=== PATIENT | female | born 1950 | race Caucasian/White ===

== ENCOUNTER → 2019-12-07 13:51 | Outpatient (BNVA) | payer MEDICARE, OTHER, SELFPAY | PROVIDERS: Family Provider Family Medicine; PCP Family Medicine; Visit Provider Internal Medicine Rheumatology | DX: M05.79 Rheumatoid arthritis with rheumatoid factor of multiple sites without organ or systems involvement (principal); Z79.899 Other long term (current) drug therapy; M15.9 Polyosteoarthritis, unspecified; Z51.81 Encounter for therapeutic drug level monitoring | CPT/HCPCS: 36415; 80053; 85025; 99213 ==

== ENCOUNTER → 2019-12-07 14:31 | Outpatient (BNVA) | payer MEDICARE, OTHER, SELFPAY | PROVIDERS: Family Provider Family Medicine; PCP Family Medicine; Visit Provider Internal Medicine Rheumatology | DX: M05.79 Rheumatoid arthritis with rheumatoid factor of multiple sites without organ or systems involvement (principal); Z51.81 Encounter for therapeutic drug level monitoring | CPT/HCPCS: 85025 ==

== ENCOUNTER 2020-02-08 11:56 | Outpatient (CLI) | payer MEDICARE, OTHER, SELFPAY ==
--- NOTE | 2020-02-08 | XR_ITS ---
WS: [id number] LUMBAR SPINE: 3 VIEWS TECHNIQUE: AP, lateral and L5-S1 spot. HISTORY: LUMBAR RADICULOPATHY COMPARISON: None available. Moderate LEFT convex curvature lumbar spine with asymmetric disc narrowing. Severe disc space narrowi ng at L2-3. Moderate disc space narrowing throughout the remaining lumbar spine. No fractures. Mild narrowing of the SI joints. XR/XR lumbar spine 2-3V* [id number] IMPRESSION: Moderate LEFT convex curvature lumbar spine with moderate to severe degenerativ e spondylosis throughout the lumbar spine.
== END 2020-02-08 11:57 | disposition home or self-care (01) ==
PROVIDERS: Family Provider Family Medicine; PCP Family Medicine; Visit Provider Family Medicine
DX: M54.16 Radiculopathy, lumbar region (principal); M47.816 Spondylosis without myelopathy or radiculopathy, lumbar region
CPT/HCPCS: 72100

== ENCOUNTER 2020-02-25 10:30 | Outpatient (CLI) | payer MEDICARE, OTHER, SELFPAY ==
--- NOTE | 2020-02-25 10:46 | MR_ITS ---
WS: [id number] MRI LUMBAR SPINE NONCONTRAST TECHNIQUE: Sagittal T1, T2 and STIR imaging. Axial T1 and T2 imaging. CLINICAL INFORMATION: LUMBAR RADICULOPATHY RIGHT COMPARISON: None. FINDINGS: Mild lumbar curve. No acute compression. Mild spondylitic changes with disc space narrowing L2-L5. En dplate degenerative changes lumbar spine. Moderate spondylitic changes cervical spine on the pinion and wheel truer im aging. Disc osteophyte complexes with mild/moderate central canal stenosis at C4-C5 and C5-C6. Promin ent disc protrusions in the mid thoracic spine at T6-T7 and T7-8. L1-L2: Mild disc bulge with slight effacement of ventral thecal sac. Mild left greater than right for aminal narrowing. Slight narrowing of the subarticular recess. Mild facet arthropathy. L2-L3: Mild disc bulging with osteophytic ridging. Impingement on the right subarticular recess and t raversing right L3 nerve root. Mild central canal stenosis. Moderate facet arthropathy. Mild to moder ate bilateral foraminal narrowing. L3-L4: Mild disc bulging with osteophytic ridging. Moderate central canal stenosis. Impingement right subarticular recess. Moderate facet arthropathy with small facet effusions. Right foraminal protrusi on with moderate to severe right foraminal narrowing. Impingement on the exiting right L3 nerve root. L4-L5: Moderate to severe central canal stenosis due to disc osteophyte complex with facet arthropath y and ligament flavum hypertrophy. Impingement on the left greater than right subarticular recess. Mi ld left and moderate right foraminal narrowing. Impingement on the exiting right L4 nerve root. L5-S1: Disc osteophyte complex with endplate ridging. Encroachment traversing S1 nerve roots. This is worse in the left. Moderate to severe left foraminal narrowing impinges the exiting left L5 nerve ro ot. Right foramen is patent. Moderate facet arthropathy. Partially visualized fibroids in the uterus the largest in the anterior fundus measuring 1.5 CM. This can be further evaluated with pelvic ultrasound. MR/MR lumbar spine wo con* [id number] IMPRESSION: 1. Mild lumbar curve. No acute compression. 2. Moderate central canal stenosis L3-4 and moderate to severe central canal s tenosis L4-5 due to disc osteophyte complexes with facet arthropathy and ligame nt flavum hypertrophy. 3. Moderate right L3-4 and right L4-5 foraminal narrowing with impingement on the exiting right L3 and L4 nerve roots respectively. 4. Moderate to severe left L5-S1 foraminal narrowing impinges the exiting left L5 nerve root. Slight encroachment on the left S1 nerve root this level. 5. Moderate facet arthropathy with facet edema L3-L4 and L4-L5 likely degenera tive. 6. Mild to moderate central canal stenosis in the cervical spine at C5-C6 and C6-C7. Prominent disc protrusions in the mid thoracic spine described above. Th is can be further evaluated with cervical and thoracic spine MRI.
== END 2020-02-25 10:31 | disposition home or self-care (01) ==
LOC: RADWPI 10:32
PROVIDERS: Family Provider Family Medicine; PCP Family Medicine; Visit Provider Family Medicine
DX: M54.16 Radiculopathy, lumbar region (principal); M48.061 Spinal stenosis, lumbar region without neurogenic claudication; M25.78 Osteophyte, vertebrae; M47.816 Spondylosis without myelopathy or radiculopathy, lumbar region; M51.24 Other intervertebral disc displacement, thoracic region
CPT/HCPCS: 72148

== ENCOUNTER 2020-02-29 04:00 | Emergency (ER) | payer MEDICARE, OTHER, SELFPAY ==
[2020-02-29 04:11] VITALS: BP 189/93; PULSE 86; RESP 20; TEMP 36.3; O2SAT 94; BMI 37.3
--- NOTE | 2020-02-29 04:26 | W.ED.BACK ---
HPI - Back Pain/Injury General: Chief Complaint: Back Pain/Injury Stated Complaint: R HIP/LEG PAIN Time Seen by Provider: 02/29/20 04:15 History of Present Illness: HPI Narrative: Jacqueline is a very nice 69-year-old female who comes in complaining of pain in her right buttock that radiates down her right leg. At times she will have her foot tingle. She denies any fevers, chills, loss of bowel or bladder control, saddle anesthesia or leg weakness. Patient has had x-rays and MRI which showed some disc herniations but nothing that was severe. Has been taking indomethacin along with hydrocodone's for pain but she states that is not taking care of her pain. She denies any injuries, abdominal pain, fever or leg weakness. Associated symptoms: Deny abdominal pain, chills, difficulty walking, dysuria, fatigue, fever(s), hematuria, nausea, syncope, urinary urgency or vomiting Review of Systems Const: Denies: fever(s), chills, body aches, fatigue, malaise, night sweats or diaphoresis Eyes: Denies: change in vision, blurry vision or blind spots ENMT: Denies: throat pain, odynophagia, hoarseness, ear or mastoid pain, ear discharge, change in hearing or nasal discharge Card: Denies: chest pain, palpitations, irregular heart rhythm, lightheadedness, syncope, pre-syncope, dyspnea on exertion or orthopnea Resp: Denies: dyspnea, productive cough, non-productive cough, wheezing, hemoptysis or chest congestion GI: Denies: abdominal pain, nausea, vomiting, hematemesis, coffee ground emesis, heartburn, diarrhea, constipation, GI cramping, hematochezia or melena : Denies: flank pain, dysuria, urinary frequency, urinary urgency, oliguria, urinary incontinence or hematuria Musc: Reports: back pain; Denies: neck pain, extremity pain, extremity swelling, joint pain, joint swelling, joint redness, joint warmth or joint stiffness Skin/Breast: Denies: rash, pruritus, erythema, skin tenderness or jaundice Neuro: Denies: headache(s), numbness in extremities, weakness in extremities, sensory changes, lack of coordination, difficulty walking, dizziness, vertigo, confusion or Slurred speech present Endo: Denies: polyuria, polydipsia, tired all the time, cold intolerance, excessive sweating, flushing, hot flashes or heat intolerance Ashish/Lymph: Denies: easy bruising, easy bleeding, petechiae, purpura or enlarged lymph nodes All/Imm: Denies: urticaria, throat swelling, tongue swelling, facial swelling or acute wheezing PFSH ED PFSH: Medical History Immunosuppression 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 Osteopenia Seropositive rheumatoid arthritis of multiple joints Surgical History History of bilateral knee arthroplasty Social History Smoking and tobacco status: never smoked Alcohol intake: never Physical Exam Const: COMMON NORMALS: no acute distress, patient oriented x3, no limitations, healthy appearing and well nourished EXAM LIMITATIONS: no altered mental status GENERAL APPEARANCE: cooperative, well kempt and well developed HENMT: COMMON NORMALS: normocephalic, atraumatic, hearing grossly normal bilaterally, external ears normal, EAC's normal, Normal external nose present and moist oral mucous membranes HEAD & SCALP: normal to inspection, normocephalic and atraumatic FACE & SINUS: normal facial exam and face symmetric NOSE: Normal external nose present and Normal nares present EXTERNAL EAR: Yes external ears normal EXTERNAL AUDITORY CANAL: EAC's normal MOUTH: Normal oral and palatal mucosa present, lip normal and tongue normal Eye: COMMON NORMALS: Equal, round and reactive pupils present, EOMs intact bilaterally, conjunctivae normal and no scleral icterus GENERAL EYE: appearance normal, both eyes and all related structures ALIGNMENT: Yes alignment normal PERIORBITAL: periorbital findings normal EYELID: eyelids normal CONJUNCTIVA: Yes conjunctivae normal SCLERA: sclerae normal PUPIL: Yes Equal, round and reactive pupils present Neck/C-Spine: COMMON NORMALS: full ROM, no lymphadenopathy, supple, no meningeal signs and no JVD GENERAL: Yes normal visual inspection and Yes trachea midline CERVICAL SPINE: Yes cervical ROM normal Chest: COMMONS NORMALS: normal inspection of the chest and normal palpation of entire chest wall Resp: COMMON NORMALS: normal respiratory effort, No retractions, No use of accessory muscles and clear to auscultation bilaterally EFFORT & INSPECTION: Yes able to speak in complete sentences AUSCULTATION: clear to auscultation bilaterally, no crackles, no rales, no rhonchi and no wheezes Cardio: COMMON NORMALS: no JVD, regular rate, regular rhythm, S1 normal heart sound present, S2 normal heart sound present, No gallops present (Cardio), No clicks present (Cardio), No murmurs present (Cardio) and No rub (Cardio) RATE: regular rate RHYTHM: regular rhythm HEART SOUNDS: S1 normal heart sound present, S2 normal heart sound present, no click, no gallops, no murmurs and no rubs GI: COMMON NORMALS: Soft to palpation, non-tender, No hepatosplenomegaly present and no masses PALPATION: Yes Soft to palpation, No Tenderness to palpation present (GI), No Guarding due to palpation present (GI), No Rigid due to palpation, Yes No hepatosplenomegaly present, No Hernia present, No Palpable mass present and No Pulsatile mass present : COMMON NORMALS: Yes no CVA tenderness BLADDER/KIDNEY EXAM: Yes no CVA tenderness and No CVA tenderness EXTERNAL FEMALE EXAM: No Hernia present Back/Pelvis: COMMON NORMALS: no CVA tenderness GENERAL BACK: No CVA tenderness, No mass, No erythema and No ecchymosis THORACIC SPINE/UPPER BACK: No paraspinal muscle tenderness and No paraspinal muscle spasm LUMBAR SPINE/LOWER BACK: Yes ROM limited (Secondary to pain), No paraspinal muscle tenderness, No paraspinal muscle spasm, Yes straight leg raise positive right and No straight leg raise positive left Extremity: COMMON NORMALS: normal to inspection, full ROM, capillary refill normal, no joint enlargement, no clubbing, cyanosis or edema and no calf tenderness Neuro: COMMON NORMALS: patient oriented x3, CN's II-XII intact bilaterally, moves all extremities, no focal motor deficits and no sensory deficits noted MENINGEAL SIGNS: Yes no meningeal signs SPEECH: speech normal GAIT: Yes Normal gait present MOTOR EXAM: 5/5 motor strength present throughout DEEP TENDON REFLEXES: Right patellar reflex intensity grade: 2+, Left patellar reflex intensity grade: 2+, Right ankle reflex intensity grade: 2+ and Left ankle reflex intensity grade: 2+ Psych: COMMON NORMALS: mental status grossly normal, Normal thought process present, cooperative, normal affect, speech normal and activity/motor behavior normal APPEARANCE: Yes well kempt SPEECH: Yes normal speech THOUGHT PROCESS: Normal thought process present Skin: COMMON NORMALS: no rashes or lesions noted, turgor normal, no jaundice, no petechiae and no mottling GENERAL SKIN EXAM: no rashes or lesions noted and turgor normal Course Vital Signs: Vital signs: Vital Signs Temperature 97.3 F L 02/29/20 04:11 Pulse Rate 86 02/29/20 04:11 Respiratory Rate 20 H 02/29/20 04:11 Blood Pressure 189/93 02/29/20 04:11 Pulse Oximetry 94 02/29/20 04:11 MDM - Back Pain/Injury MDM Narrative: Medical decision making narrative: The patient appears to have a severe case of sciatica. I reviewed her lumbar spine x-rays and MRI from the past 2 weeks and she does have right-sided L5-S1 and L4-5 severe canal stenosis and nerve root impingement. The patient shows no sign of any other severe problem such as CRAFTI. I will increase her pain medication to Percocet and add Flexeril. I believe she would benefit from steroids but she is on 2 other immunosuppressive medications. With no trauma and no new injury and previous imaging I think her symptoms can be managed with pain medication. She agrees to follow-up with Dr. Hernandez this week for recheck. Discharge Plan Discharge Patient Disposition: Home, Self-Care Clinical Impression: Sciatica Qualifiers: Laterality: right Qualified Code(s): M54.31 - Sciatica, right side Condition: Stable Prescriptions: New Percocet 5-325 mg tablet 1 tab PO Q6H PRN (Reason: pain) Qty: 20 RF: 0 cyclobenzaprine 10 mg tablet 10 mg PO TID PRN (Reason: muscle spasm) Qty: 30 RF: 0 No Action tizanidine [Zanaflex] 4 mg capsule 4 mg PO Q6H PRNRF: 0 folic acid 1 mg tablet 1 mg PO DAILY RF: 0 carvedilol 6.25 mg tablet 6.25 mg PO BID RF: 0 calcium carbonate-vit D3-min 600 mg calcium- 400 unit tablet 1 tab PO DAILY RF: 0 ezetimibe-simvastatin [Vytorin 10-10] 10-10 mg tablet 1 tab PO DAILY RF: 0 lisinopril 20 mg tablet 20 mg PO BID RF: 0 multivitamin Tablet 1 tab PO DAILY RF: 0 hydrochlorothiazide 25 mg tablet 25 mg PO DAILY PRN (Reason: severe pain (scale score 7-10)) RF: 0 methotrexate sodium 2.5 mg tablet 17.5 mg PO .once weekly Qty: 28 RF: 2 leflunomide 20 mg tablet 20 mg PO DAILY Qty: 90 RF: 0 Discharge Orders: Discharge Order (Routine); Ordered 02/29/20 Ordered By: Cady Villalobos Referrals: Joshua Hernandez MD [Primary Care Provider] - 1-3 days Discharge Diet: Advance as tolerated Discharge Activity: Increase activity as tolerated Patient Instructions: Sciatica (ED) Activity Restrictions/Additional Instructions: Please return to the ER immediately for any of the signs or symptoms listed on your discharge instruction sheets, worsening/changing of your symptoms, you are not getting better as quickly as expected, or for ANY other cause or concerns. Return to ER for fever, numbness in your groin, loss of bowel or bladder control, leg weakness, or for any other cause for concern. Do not take your hydrocodone's while taking Percocet. Take your muscle relaxer only as needed. Continue your indomethacin. Be certain to follow-up with Dr. Hernandez as soon as possible. Coding Level of Care Code ED Embosser Operator for Keara Dudley
[2020-02-29 04:53] VITALS: RESP 16; O2SAT 99
[2020-02-29] MEDS: oxyCODONE-APAP 5-325 mg Tablet 1 TAB PO (04:53)
[2020-02-29] MEDS: cyclobenzaprine 10 mg Tablet PO (04:54)
[2020-02-29 04:55] VITALS: BP 168/99; PULSE 84; RESP 16; O2SAT 96
[2020-02-29 05:14] VITALS: PULSE 68; RESP 16; O2SAT 96
== END 2020-02-29 05:15 | disposition home or self-care (01) ==
PROVIDERS: Emergency Provider Emergency Medicine; Family Provider Family Medicine; PCP Family Medicine
DX: M54.31 Sciatica, right side (principal)
CPT/HCPCS: 12345; 99281; 99283

== ENCOUNTER → 2020-03-09 09:54 | Outpatient (BNVA) | payer MEDICARE, OTHER, SELFPAY | PROVIDERS: Family Provider Family Medicine; PCP Family Medicine; Referring Provider Family Medicine; Visit Provider Anesthesiology Pain Medicine | DX: M54.42 Lumbago with sciatica, left side (principal); M54.9 Dorsalgia, unspecified; Z79.891 Long term (current) use of opiate analgesic | CPT/HCPCS: 99203; 99204 ==

== ENCOUNTER → 2020-03-22 13:10 | Outpatient (BNVA) | payer MEDICARE, OTHER, SELFPAY | PROVIDERS: Family Provider Family Medicine; PCP Family Medicine; Visit Provider Internal Medicine Rheumatology | DX: M05.79 Rheumatoid arthritis with rheumatoid factor of multiple sites without organ or systems involvement (principal); Z79.899 Other long term (current) drug therapy; M20.5X1 Other deformities of toe(s) (acquired), right foot; M85.89 Other specified disorders of bone density and structure, multiple sites; M16.0 Bilateral primary osteoarthritis of hip; M47.816 Spondylosis without myelopathy or radiculopathy, lumbar region | CPT/HCPCS: 36415; 80076; 82565; 85025; 85651; 86140; 99214 ==

== ENCOUNTER 2020-03-23 10:38 | Outpatient (CLI) | payer MEDICARE, OTHER, SELFPAY ==
--- NOTE | 2020-03-23 11:00 | MR_ITS ---
WS: [id number] MRI CERVICAL SPINE NONCONTRAST TECHNIQUE: Sagittal T1, T2 and STIR imaging. Axial T2, gradient, and fiesta imaging. CLINICAL INFORMATION: M50.020 Cervical disc disorder with myelopathy, mid-cervi... COMPARISON: None. FINDINGS: Straightening of the normal cervical lordosis. Grade 1 anterolisthesis C4 on C5. Disc space narrowing worse at C4-C5 C5-C6 and C6-C7. Moderate central canal stenosis C5-C6. C2-C3: Mild right and no significant left foraminal narrowing. C3-C4: Mild osteophytic ridging. Mild left greater than right bony foraminal narrowing. Mild facet ar thropathy. C4-C5: Grade 1 anterolisthesis. Disc osteophyte complex with a small central protrusion. Slight conta ct of the cervical cord. Mild central canal stenosis. Moderate left greater than right bony foraminal narrowing. C5-C6: Disc osteophyte complex with endplate ridging. Slight indentation on the cervical cord and mod erate central canal stenosis. Moderate bilateral bony foraminal narrowing. Mild facet arthropathy. C6-C7: Disc osteophyte complex eccentric to the left. Mild central canal stenosis. Moderate to severe left and mild right bony foraminal narrowing. C7-T1: Mild to moderate left and no significant right foraminal narrowing. Spinal canal is patent. Small disc protrusions upper thoracic spine without significant spinal canal stenosis. Mild bilateral T1-2 foraminal narrowing MR/MR cervical spin wo con* [id number] IMPRESSION: 1. Straightening of the normal cervical lordosis with moderate spondylitic petrona nges worse at C4-C6. Grade 1 anterolisthesis C4 on C5. 2. Mild central canal stenosis C4-C5 and moderate central canal stenosis C5-C6 with slight indentation and flattening of the cervical cord. Cord signal remai ns normal. 3. Multilevel moderate bony foraminal narrowing worse at left C4-C5, bilateral C5-C6, and left C6-C7. Moderate to severe at left C6-7. 4. Small disc protrusions in the upper thoracic spine with mild bilateral fora shayne narrowing T1-2.
--- NOTE | 2020-03-23 13:00 | XRR_ITS ---
PROCEDURE INFORMATION: Exam: XR Cervical Spine, 2 or 3 Views Exam date and time: 03/23/2020 11:45 AM Age: 69 years old Clinical indication: Neck pain TECHNIQUE: Imaging protocol: XR of the cervical spine, 2 or 3 views. COMPARISON: No relevant prior studies available. FINDINGS: Vertebrae: 4.5 mm anterior listhesis of C4 on C5 in flexion and neutral positioning, which decreases to 4.0 cm with extension. Degenerative change, of greatest severity at the C5-C6 level. Soft tissues: Unremarkable. XR/XR cervical spine fl/ex [id number] IMPRESSION: 1. 4.5 mm anterior listhesis of C4 on C5 in flexion and neutral positioning, which decreases to 4.0 cm with extension. 2. Degenerative change, of greatest severity at the C5-C6 level.
--- NOTE | 2020-03-23 13:30 | XRR_ITS ---
PROCEDURE INFORMATION: Exam: XR Lumbosacral Spine, 2 or 3 Views Exam date and time: 03/23/2020 11:45 AM Age: 69 years old Clinical indication: Low back pain TECHNIQUE: Imaging protocol: XR of the lumbosacral spine, 2 or 3 views. COMPARISON: No relevant prior studies available. FINDINGS: Vertebrae: Grade 1 anterior listhesis of L4 on L5, without significant instability. Osteopenia and degenerative change. Soft tissues: Unremarkable as visualized. XR/XR lumbar spine f/e only [id number] IMPRESSION: Grade 1 anterior listhesis of L4 on L5, without significant instability.
== END 2020-03-23 10:39 | disposition home or self-care (01) ==
LOC: RADWPI 10:42
PROVIDERS: Family Provider Family Medicine; PCP Family Medicine; Visit Provider Licensed Practical Nurse
DX: M54.2 Cervicalgia (principal); M48.02 Spinal stenosis, cervical region; M51.24 Other intervertebral disc displacement, thoracic region
CPT/HCPCS: 72040; 72120; 72141

== ENCOUNTER → 2020-04-06 13:12 | Outpatient (BNVA) | payer MEDICARE, OTHER, SELFPAY | PROVIDERS: Family Provider Family Medicine; PCP Family Medicine; Visit Provider Anesthesiology Pain Medicine | DX: M48.062 Spinal stenosis, lumbar region with neurogenic claudication (principal); M50.020 Cervical disc disorder with myelopathy, mid-cervical region, unspecified level | CPT/HCPCS: 99213 ==

== ENCOUNTER → 2020-07-25 13:30 | Outpatient (BNVA) | payer MEDICARE, OTHER, SELFPAY | PROVIDERS: Family Provider Family Medicine; PCP Family Medicine; Visit Provider Internal Medicine Rheumatology | DX: M05.79 Rheumatoid arthritis with rheumatoid factor of multiple sites without organ or systems involvement (principal); M16.2 Bilateral osteoarthritis resulting from hip dysplasia; M85.80 Other specified disorders of bone density and structure, unspecified site; Z79.899 Other long term (current) drug therapy; M47.896 Other spondylosis, lumbar region | CPT/HCPCS: 36415; 80076; 82565; 85025; 85651; 86140; 99214 ==

== ENCOUNTER → 2020-11-09 12:54 | Outpatient (BNVA) | payer MEDICARE, OTHER, SELFPAY | PROVIDERS: Family Provider Family Medicine; PCP Family Medicine; Visit Provider Internal Medicine Rheumatology | DX: Z79.899 Other long term (current) drug therapy (principal); M19.90 Unspecified osteoarthritis, unspecified site | CPT/HCPCS: 36415; 80076; 82565; 85025; 85651; 86140 ==

== ENCOUNTER → 2020-11-16 13:52 | Outpatient (BNVA) | payer MEDICARE, OTHER, SELFPAY | PROVIDERS: Family Provider Family Medicine; PCP Family Medicine; Visit Provider Internal Medicine Rheumatology | DX: M05.79 Rheumatoid arthritis with rheumatoid factor of multiple sites without organ or systems involvement (principal); Z79.899 Other long term (current) drug therapy; J01.90 Acute sinusitis, unspecified; M16.0 Bilateral primary osteoarthritis of hip; M47.896 Other spondylosis, lumbar region; M85.80 Other specified disorders of bone density and structure, unspecified site | CPT/HCPCS: 36415; 85025; 99214 ==

== ENCOUNTER 2021-01-09 09:08 | Outpatient (CLI) | payer MEDICARE, OTHER, SELFPAY ==
--- NOTE | 2021-01-09 09:10 | FL_ITS ---
WS: [id number] UPPER GI WITH AIR TECHNICAL: Double contrast upper GI with thin and thick barium FLUOROSCOPY TIME: 2.7 minutes CLINICAL INFORMATION: R13.10 - Dysphagia, unspecified COMPARISON: None. FINDINGS: Swallowing: No evidence of aspiration or penetration. Esophagus: Moderate to advanced esophageal dysmotility with delayed emptying. Delayed emptying on the upright and supine imaging with tertiary contractions. Small esophageal hiatal hernia. Reflux is vis ualized into the mid and upper esophagus. Gastroesophageal reflux: Present Stomach: Small esophageal hiatal hernia. Double contrast stomach is otherwise normal with normal empt donna. Duodenum: Normal duodenal C-loop. Other findings: None. FL/FL upper GI w air* [id number] IMPRESSION: 1. Advanced esophageal dysmotility with delayed emptying. No evidence of high- grade stricture or mass. Tertiary contractions visualized in the distal esophag us. 2. Small esophageal hiatal hernia with reflux visualized into the mid and uppe r esophagus in the upright and supine imaging. 3. Double contrast stomach and duodenum are otherwise normal.
== END 2021-01-09 09:09 | disposition home or self-care (01) ==
LOC: RADWPI 09:09
PROVIDERS: PCP Family Medicine; Visit Provider Surgery
DX: R13.10 Dysphagia, unspecified (principal); K44.9 Diaphragmatic hernia without obstruction or gangrene
CPT/HCPCS: 74246

== ENCOUNTER → 2021-01-25 13:17 | Outpatient (BNVA) | payer MEDICARE, OTHER, SELFPAY | PROVIDERS: PCP Family Medicine; Visit Provider Surgery | DX: R13.10 Dysphagia, unspecified (principal); Z12.11 Encounter for screening for malignant neoplasm of colon; Z11.52 Encounter for screening for COVID-19 | CPT/HCPCS: 87635 ==

== ENCOUNTER → 2021-02-02 10:22 | Outpatient (BNVA) | payer MEDICARE, OTHER, SELFPAY | PROVIDERS: PCP Family Medicine; Visit Provider Surgery | DX: Z01.812 Encounter for preprocedural laboratory examination (principal); Z20.822 Contact with and (suspected) exposure to COVID-19 | CPT/HCPCS: 87635 ==

== ENCOUNTER 2021-02-06 05:52 | Day surgery (SDC) | payer MEDICARE, OTHER, SELFPAY ==
[2021-02-02 06:55] VITALS: BMI 34.0
[2021-02-02 15:16] VITALS: BMI 35.1
[2021-02-06 06:23] VITALS: BP 166/102; PULSE 95; RESP 18; TEMP 36.1; O2SAT 91
[2021-02-06 06:27] VITALS: BP 134/89
--- NOTE | 2021-02-06 06:27 | P.HP_ITS ---
Same Day Surgery H&P Indication for Procedure/HPI DATE OF PROCEDURE: February 06, 2021 CHIEF COMPLAINT/INDICATIONFOR SURGICAL PROCEDURE: Difficulty in swallowing and screening colonoscopy PREOP DIAGNOSIS: Dysphagia and screening colonoscopy PLANNED PROCEDRUE: Operation Date: 02/06/21 07:00 Proposed Procedures p EGD/colon [id number] R13.10 Z12.11(Not Applicable) - Facundo Klein MD s Colonoscopy(Not Applicable) - Facundo Klein MD This is a pleasant 70 years old female patient has been having issues with swallowing for the past 6 to 8 months has been on and off particularly to stick. Patient reports vomiting and excessive mucus she feels not in my neck also she does experience pain when food is stuck in her upper throat denies any history of hematemesis or bleeding per rectum and no history of colon cancer. Patient never had an EGD or colonoscopy. 02/06/2021 Patient comes today for diagnostic EGD and screening colonoscopy. Upper GI study was done and showed; 1. Advanced esophageal dysmotility with delayed emptying. No evidence of high- grade stricture or mass. Tertiary contractions visualized in the distal esophagus. 2. Small esophageal hiatal hernia with reflux visualized into the mid and upper esophagus in the upright and supine imaging. 3. Double contrast stomach and duodenum are otherwise normal. ROS All systems have been reviewed negative except as per the above Medications/Allergies* Home Medications Medication Instructions Recorded Confirmed Type calcium carb-vit D3-minerals 600 1 tab PO DAILY tab 12/07/19 02/02/21 History mg calcium-400 unit tablet carvedilol 6.25 mg tablet 6.25 mg PO BID 12/07/19 02/06/21 History hydrochlorothiazide 25 mg tablet 25 mg PO DAILY tab 12/07/19 02/02/21 History pravastatin 40 mg tablet 40 mg PO DAILY 03/09/20 02/02/21 History Multivitamin 50 Plus 1 tab PO DAILY 02/02/21 02/06/21 History acetaminophen [8 Hour Pain 650 mg PO Q8H PRN 02/02/21 02/02/21 History Reliever] ascorbic acid (vitamin C) [Vitamin 1,000 mg PO DAILY 02/02/21 02/02/21 History C] indomethacin 25 mg PO DAILY 02/02/21 02/02/21 History leflunomide 20 mg PO DAILY 02/02/21 02/02/21 History lisinopril 40 mg PO DAILY 02/02/21 02/02/21 History Allergies/Adverse Reactions Allergy/AdvReac Type Severity Reaction Status Date / Time Penicillins Allergy Unknown rash Verified 02/06/21 06:28 Sulfa (Sulfonamide Allergy Unknown Unknown Verified 02/06/21 06:28 Antibiotics) bacitracin Allergy rash,swelli Verified 02/06/21 06:28 [From Neosporin ng,itching ([id number])] neomycin Allergy rash,swelli Verified 02/06/21 06:28 [From Neosporin ng,itching ([id number])] polymyxin B Allergy rash,swelli Verified 02/06/21 06:28 [From Neosporin ng,itching ([id number])] Pertinent History/Comorbid Conditions* Medical History (Updated 12/25/20 @ 16:19 by Facundo Klein MD) Cervical disc disorder with 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 Displacement of lumbar disc with radiculopathy High risk medication use Immunization counseling Immunosuppression Intervertebral disc disorder with radiculopathy of lumbosacral region Lumbar stenosis with neurogenic claudication 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 Osteopenia Osteopenia Seropositive rheumatoid arthritis of multiple joints Sinusitis, acute Spondylolisthesis of cervical region Spondylolisthesis, lumbar region Stenosis of cervical spine with myelopathy Surgical History (Updated 12/07/19 @ 06:59 by Angela Mitchell MD) History of bilateral knee arthroplasty Family History (Updated 03/09/20 @ 09:10 by Conner Vora) Cancer Mother Denies family history of Diabetes Dementia Social History Smoking and tobacco status: never smoked Alcohol intake: never Household members: spouse Marital status: Current occupational status: retired History of recent travel: No Pertinent Exam Findings alert, oriented x 3, clear to auscultation bilaterally, regular rate & rhythm and procedure specific exam findings (Abdominal examination nontender nondistended soft) Recommendations Surgery/Procedure today (EGD and colonoscopy with possible biopsy) Other Plans: Plan of care; After thorough history and physical examination and reviewing the chart, plan to perform a diagnostic esophagogastroduodenoscopy and screening colonoscopy with possible biopsy and possible polypectomy. I discussed with the patient in detail the risks,benefits,alternatives and indications.The risk of aspiration, bleeding, soft tissue injury, perforation of the stomach/esophagus/colon and other potential concomitant complications were explained to the patient in details also the potential need for Thoracotomy and or Laproscoy/Laparotomy to repair any related complications including but not limited to colectomy and or Closotomy. The patient understood this well and did agree to proceed. Rationale was carefully and clearly discussed with the patient.Appropriate informed consent have been reviewed and signed Verbal and written Instructions were given to the patient for colonoscopy prep Coding Level of Care Code Acute Marketing Support Specialist for Keara Dudley
[2021-02-06] MEDS: sodium chloride 0.9% 1,000 ML 30 ML IV (06:30)
--- NOTE | 2021-02-06 07:01 | ANES.PREANE2 ---
Pre-Anesthetic Assessment Pre-Anesthetic Assessment: Height/Weight: Height 1.55 m Weight 84.368 kg Temp Pulse Resp BP Pulse Ox 97 F L 95 18 134/89 91 02/06/21 06:23 02/06/21 06:23 02/06/21 06:23 02/06/21 06:27 02/06/21 06:23 Preop Diagnosis: Dysphagia and screening colonoscopy Proposed Procedure: Operation Date: 02/06/21 07:00 Proposed Procedures p EGD/colon 09015 11399 R13.10 Z12.11(Not Applicable) - Facundo Klein MD s Colonoscopy(Not Applicable) - Facundo Klein MD Familial anesthetic complications: none Was Beta Vianca taken within 24 hours: Yes Was Clonidine taken within 24 hours: N/A Last intake: Intake Last Liquid Date 02/05/21 Last Liquid Time 00:00 Last Solid Date 02/04/21 Last Intake: 00:00 Social: Social History: No alcohol and No tobacco Exam: Pre-Anes Outpt Exam: alert, oriented x 3, clear to auscultation bilaterally and regular rate & rhythm Airway: Cervical ROM: WNL MP: 1 Dentition: False Pulmonary: Pulmonary: None reported CV/HEM: CV/HEM: HTN : : None reported Hepatic: Hepatic: None reported GI: GI: GERD Metabolic: Metabolic: None reported Musc/skel: Musc/skel: Lower Back Pain and OA/DJD Neuropsych: Neuropsych: CVA (FLORES that resolved) Anesthetic Plan: ASA status: 2 Anesthesia: MAC PFSH Anesthesia PFSH: Medical History Cervical disc disorder with 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 Displacement of lumbar disc with radiculopathy High risk medication use Immunization counseling Immunosuppression Intervertebral disc disorder with radiculopathy of lumbosacral region Lumbar stenosis with neurogenic claudication 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
[2021-02-06 07:39] VITALS: BP 164/82; PULSE 73; RESP 18; TEMP 36.1; O2SAT 97
--- NOTE | 2021-02-06 07:40 | ANE.PACU2 ---
Inpatient post-anesthesia follow up: Airway intact: Yes Vital signs: Temperature 97 F Pulse Rate 73 Respiratory Rate 18 Blood Pressure 164/82 Pulse Oximetry 97 Oxygen Delivery Me thod Room Air Oxygen Flow Rate Fraction of Inspir ed Oxygen Hydration adequate: Yes Nausea and vomiting: No Pain level: 1 Mental status: Baseline
[2021-02-06 08:04] VITALS: BP 120/58; PULSE 71; RESP 18; O2SAT 95
--- NOTE | 2021-02-06 14:14 | ANE.PACU2 ---
Inpatient post-anesthesia follow up: Airway intact: Yes Vital signs: Temperature 97 F Pulse Rate 71 Respiratory Rate 18 Blood Pressure 120/58 Pulse Oximetry 95 Oxygen Delivery Me thod Room Air Oxygen Flow Rate Fraction of Inspir ed Oxygen Hydration adequate: Yes Nausea and vomiting: No Pain level: 1 Mental status: Baseline
[2021-02-08 06:52] LABS: H. Pylori / CLO Test Negative
== END 2021-02-06 08:20 | disposition home or self-care (01) ==
PROVIDERS: PCP Family Medicine; Visit Provider Surgery
PROC: 0DJ08ZZ Inspection of Upper Intestinal Tract, Via Natural or Artificial Opening Endoscopic (ICD-10-PCS; CPT 43235; principal; 2021-02-06 07:00)
PROC: 0DJD8ZZ Inspection of Lower Intestinal Tract, Via Natural or Artificial Opening Endoscopic (ICD-10-PCS; CPT 45378; 2021-02-06 07:00)
DX: Z12.11 Encounter for screening for malignant neoplasm of colon (principal); R13.10 Dysphagia, unspecified; K57.30 Diverticulosis of large intestine without perforation or abscess without bleeding; I85.00 Esophageal varices without bleeding; K44.9 Diaphragmatic hernia without obstruction or gangrene; K29.70 Gastritis, unspecified, without bleeding; K29.80 Duodenitis without bleeding; I10 Essential (primary) hypertension; K21.9 Gastro-esophageal reflux disease without esophagitis; M19.90 Unspecified osteoarthritis, unspecified site; Z86.73 Personal history of transient ischemic attack (TIA), and cerebral infarction without residual deficits
CPT/HCPCS: 43239; 45378; 87077; 96360; J2704; J7030

== ENCOUNTER 2021-02-21 13:24 | Outpatient (CLI) | payer MEDICARE, OTHER, SELFPAY ==
--- NOTE | 2021-02-21 13:36 | MM_ITS ---
WS: [id number] BILATERAL SCREENING DIGITAL MAMMOGRAM WITH CAD HISTORY: SCREEN COMPARISON: 08/10/2012 Bilateral CC and MLO views submitted. Computer aided detection analyzed. Breast composition: There are scattered areas of fibroglandular density. No suspicious masses, microc alcifications or architectural distortion. Bilateral scattered calcifications in each breast. MM/[place] [id number] IMPRESSION: BI-RADS: 2-Benign FOLLOW UP: 1 Year Follow-up
== END 2021-02-21 13:25 | disposition home or self-care (01) ==
LOC: RADSHAW 13:30
PROVIDERS: PCP Family Medicine; Visit Provider Family Medicine
DX: Z12.31 Encounter for screening mammogram for malignant neoplasm of breast (principal)
CPT/HCPCS: 77067

== ENCOUNTER → 2021-03-19 12:58 | Outpatient (BNVA) | payer MEDICARE, OTHER, SELFPAY | PROVIDERS: PCP Family Medicine; Visit Provider Internal Medicine Rheumatology | DX: M05.79 Rheumatoid arthritis with rheumatoid factor of multiple sites without organ or systems involvement (principal); Z79.899 Other long term (current) drug therapy; M16.0 Bilateral primary osteoarthritis of hip; M47.896 Other spondylosis, lumbar region; M85.89 Other specified disorders of bone density and structure, multiple sites | CPT/HCPCS: 99214 ==

== ENCOUNTER 2021-03-27 13:16 | Outpatient (CLI) | payer MEDICARE, OTHER, SELFPAY ==
--- NOTE | 2021-03-27 13:25 | XR_ITS ---
WS: [id number] RIGHT KNEE: 3 VIEW(S) TECHNIQUE: AP, oblique(s) and lateral. 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 No fracture or dislocation. Status post RIGHT knee arthroplasty. Components are in good position alignment. No joint effusion. No soft tissue abnormality. XR/XR knee RT 3V* [id number] IMPRESSION: Prior RIGHT knee arthroplasty with no complications.
--- NOTE | 2021-03-27 13:25 | XR_ITS ---
WS: [id number] LEFT KNEE: 3 VIEW(S) TECHNIQUE: AP, oblique(s) and lateral. HISTORY: Z79.899 - Other detention (current) drug therapy COMPARISON: 07/07/2019 Status post LEFT knee arthroplasty. No loosening or fracture. No joint space narrowing or osteophytes. No joint effusion. No soft tissue abnormality. XR/XR knee LT 3V* [id number] IMPRESSION: LEFT knee arthroplasty with no complications. No fracture.
== END 2021-03-27 13:17 | disposition home or self-care (01) ==
PROVIDERS: PCP Family Medicine; Visit Provider Internal Medicine Rheumatology
DX: M05.79 Rheumatoid arthritis with rheumatoid factor of multiple sites without organ or systems involvement (principal); Z79.899 Other long term (current) drug therapy
CPT/HCPCS: 73562

== ENCOUNTER → 2021-07-11 12:56 | Outpatient (BNVA) | payer MEDICARE, OTHER, SELFPAY | PROVIDERS: PCP Family Medicine; Visit Provider Internal Medicine Rheumatology | DX: M05.79 Rheumatoid arthritis with rheumatoid factor of multiple sites without organ or systems involvement (principal); M16.2 Bilateral osteoarthritis resulting from hip dysplasia; M85.80 Other specified disorders of bone density and structure, unspecified site; Z71.89 Other specified counseling; Z79.899 Other long term (current) drug therapy | CPT/HCPCS: 36415; 80076; 82565; 85025; 86140 ==

== ENCOUNTER → 2021-07-17 14:07 | Outpatient (BNVA) | payer MEDICARE, OTHER, SELFPAY | PROVIDERS: PCP Family Medicine; Visit Provider Internal Medicine Rheumatology | DX: M05.79 Rheumatoid arthritis with rheumatoid factor of multiple sites without organ or systems involvement (principal); M15.9 Polyosteoarthritis, unspecified; M47.896 Other spondylosis, lumbar region; Z79.899 Other long term (current) drug therapy; M85.89 Other specified disorders of bone density and structure, multiple sites; Z96.653 Presence of artificial knee joint, bilateral; Z71.89 Other specified counseling | CPT/HCPCS: 99214 ==

== ENCOUNTER → 2021-11-19 13:49 | Outpatient (BNVA) | payer MEDICARE, OTHER, SELFPAY | PROVIDERS: PCP Family Medicine; Visit Provider Internal Medicine Rheumatology | DX: M05.79 Rheumatoid arthritis with rheumatoid factor of multiple sites without organ or systems involvement (principal); R25.2 Cramp and spasm; M85.80 Other specified disorders of bone density and structure, unspecified site; M15.9 Polyosteoarthritis, unspecified; M47.896 Other spondylosis, lumbar region; Z79.899 Other long term (current) drug therapy; M85.89 Other specified disorders of bone density and structure, multiple sites; Z71.89 Other specified counseling | CPT/HCPCS: 99214 ==

== ENCOUNTER → 2022-04-03 14:20 | Outpatient (BNVA) | payer MEDICARE, OTHER, SELFPAY | PROVIDERS: PCP Family Medicine; Visit Provider Internal Medicine Rheumatology | DX: M05.79 Rheumatoid arthritis with rheumatoid factor of multiple sites without organ or systems involvement (principal); Z79.899 Other long term (current) drug therapy; M15.9 Polyosteoarthritis, unspecified; M47.896 Other spondylosis, lumbar region; M85.80 Other specified disorders of bone density and structure, unspecified site; Z96.653 Presence of artificial knee joint, bilateral; Z71.89 Other specified counseling | CPT/HCPCS: 80076; 82565; 85025; 86140; 99214 ==

== ENCOUNTER → 2022-07-17 14:28 | Outpatient (BNVA) | payer MEDICARE, OTHER, SELFPAY | PROVIDERS: PCP Family Medicine; Visit Provider Internal Medicine Rheumatology | DX: M05.79 Rheumatoid arthritis with rheumatoid factor of multiple sites without organ or systems involvement (principal); Z79.899 Other long term (current) drug therapy; Z71.89 Other specified counseling; M47.896 Other spondylosis, lumbar region; M85.80 Other specified disorders of bone density and structure, unspecified site; M15.9 Polyosteoarthritis, unspecified; Z98.890 Other specified postprocedural states | CPT/HCPCS: 99204 ==

== ENCOUNTER → 2022-07-18 14:21 | Outpatient (BNVA) | payer MEDICARE, OTHER, SELFPAY | PROVIDERS: PCP Family Medicine; Visit Provider Family Medicine | DX: Z00.00 Encounter for general adult medical examination without abnormal findings (principal); R73.09 Other abnormal glucose; E78.5 Hyperlipidemia, unspecified; R25.2 Cramp and spasm; M25.562 Pain in left knee; M25.561 Pain in right knee; Z51.81 Encounter for therapeutic drug level monitoring; Z13.220 Encounter for screening for lipoid disorders | CPT/HCPCS: 80053; 80061; 83036; 83735; 85025 ==

== ENCOUNTER 2022-08-02 13:29 | Outpatient (CLI) | payer MEDICARE, OTHER, SELFPAY ==
--- NOTE | 2022-08-02 13:41 | MM_ITS ---
WS: [id number] Bilateral screening 3D tomosynthesis digital mammogram, 08/02/2022 Clinical Data: SCREEN Comparison: 02/21/2021, 08/10/2012. Findings: The breast parenchymal pattern shows fat replacement. No spiculated masses or clustered calcification s are seen. There are no secondary signs of carcinoma. MM/[place] [id number] Impression: 1. Negative bilateral mammogram unchanged. 2. Recommend annual screening mammograms. BIRADS: 1-Negative FOLLOW UP: 1 Year Follow-up The CAD baggage security checker was used.
== END 2022-08-02 13:30 | disposition home or self-care (01) ==
LOC: RAD 13:29
PROVIDERS: PCP Family Medicine; Visit Provider Family Medicine
DX: Z12.31 Encounter for screening mammogram for malignant neoplasm of breast (principal)
CPT/HCPCS: 77063; 77067

== ENCOUNTER → 2022-08-19 13:58 | Outpatient (BNVA) | payer MEDICARE, OTHER, SELFPAY | PROVIDERS: PCP Family Medicine; Visit Provider Specialist | DX: M70.51 Other bursitis of knee, right knee (principal); M70.52 Other bursitis of knee, left knee; R29.898 Other symptoms and signs involving the musculoskeletal system; Y99.9 Unspecified external cause status | CPT/HCPCS: 73560; 73565; 99213 ==

== ENCOUNTER → 2022-11-04 12:54 | Outpatient (BNVA) | payer MEDICARE, OTHER, SELFPAY | PROVIDERS: PCP Family Medicine; Visit Provider Internal Medicine Rheumatology | DX: M05.79 Rheumatoid arthritis with rheumatoid factor of multiple sites without organ or systems involvement (principal); Z79.899 Other long term (current) drug therapy; Z71.89 Other specified counseling | CPT/HCPCS: 36415; 80076; 82565; 85025; 86140; 99214 ==

== ENCOUNTER → 2022-12-18 13:16 | Outpatient (BNVA) | payer MEDICARE, OTHER, SELFPAY | PROVIDERS: PCP Family Medicine; Visit Provider Specialist | DX: Z96.653 Presence of artificial knee joint, bilateral (principal); M70.50 Other bursitis of knee, unspecified knee | CPT/HCPCS: 73560; 73565; 99213 ==

== ENCOUNTER → 2023-02-03 13:00 | Outpatient (BNVA) | payer MEDICARE, OTHER, SELFPAY | PROVIDERS: PCP Family Medicine; Visit Provider Internal Medicine Rheumatology | DX: M05.79 Rheumatoid arthritis with rheumatoid factor of multiple sites without organ or systems involvement (principal); Z79.899 Other long term (current) drug therapy; Z71.89 Other specified counseling | CPT/HCPCS: 36415; 80076; 82565; 85025; 86140; 99214 ==

== ENCOUNTER 2023-08-03 12:19 | Emergency (ER) | payer MEDICARE, OTHER, SELFPAY ==
[2023-08-03 12:23] VITALS: BP 156/89; PULSE 93; RESP 18; TEMP 37; O2SAT 93; BMI 32.5
--- NOTE | 2023-08-03 12:26 | ECG_ITS ---
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 Measurements Intervals [place] Rate: 87 P: -48 GA: 159 QRS: -27 QRSD: 89 T: 31 QT: 351 QTc: 423 Interpretive Statements ECTOPIC ATRIAL RHYTHM WITH OCCASIONAL SUPRAVENTRICULAR PREMATURE COMPLEXES BORDERLINE LEFT AXIS DEVIATION [QRS AXIS < -20] MODERATE VOLTAGE CRITERIA FOR LVH, CONSIDER NORMAL VARIANT [MEETS CRITERIA IN ONE OF: R(aVL), S(V1), R(V5), R(V5/V6)+S(V1)] MINIMAL ST DEPRESSION [0.025+ mV ST DEPRESSION] ABNORMAL RHYTHM ECG Compared to ECG 06/07/2016 12:34:21 Ectopic atrial rhythm now present Sinus rhythm no longer present Myocardial infarct finding no longer present ST (T wave) deviation still present Electronically Signed On 08-04-2023 10:29:28 CDT by Lety Marion M.D. [id number]
--- NOTE | 2023-08-03 12:44 | XRR_ITS ---
PROCEDURE INFORMATION: Exam: XR Left Knee Exam date and time: 08/03/2023 12:48 PM Age: 73 years old Clinical indication: Injury or trauma; Fall; Blunt trauma; Knee; Left; Additional info: Fall pain TECHNIQUE: Imaging protocol: Radiologic exam of the left knee. Views: 3 views. COMPARISON: CR XR knees AP WB w BI lmt ORTH 12/18/2022 1:31 PM FINDINGS: Bones/joints: Intact well-aligned total knee prosthesis. No acute fracture. No visible joint effusion. Soft tissues: Visible soft tissues are unremarkable. XR/XR knee LT 3V* [id number] IMPRESSION: No acute findings.
--- NOTE | 2023-08-03 12:44 | XRR_ITS ---
PROCEDURE INFORMATION: Exam: XR Left Hip Exam date and time: 08/03/2023 12:48 PM Age: 73 years old Clinical indication: Injury or trauma; Fall; Blunt trauma (contusions or hematomas); Left; Hip; Additional info: Fall pain TECHNIQUE: Imaging protocol: Radiologic exam of the left hip. Views: 2 or 3 views hip with pelvis when performed. COMPARISON: CR XR pelvis 1-2V* [id number] 01/08/2019 9:40 AM FINDINGS: Bones/joints: Femoroacetabular alignment is normal. No acute fracture. Soft tissues: Visible soft tissues are unremarkable. XR/XR hip LT 2-3V wo/w pel* [id number] IMPRESSION: No acute fracture.
--- NOTE | 2023-08-03 12:44 | XRR_ITS ---
PROCEDURE INFORMATION: Exam: XR Lumbosacral Spine Exam date and time: 08/03/2023 12:48 PM Age: 73 years old Clinical indication: Injury or trauma; Other: Lbp post fall; Patient HX: Lower back pain post fall TECHNIQUE: Imaging protocol: Radiologic exam of the lumbosacral spine. Views: 2 or 3 views. COMPARISON: CR XR lumbar spine f/e only [id number] 03/23/2020 11:38 AM FINDINGS: Bones/joints: Moderate convex left lumbar scoliosis centered L3. Grade 1 left lateral listhesis of L3 on L4. Vertebral body height is maintained. There is moderate multilevel lumbar disc degeneration. There is moderate multilevel facet spondylosis. No acute fracture. The visible portion of the pelvis and sacrum is intact. Soft tissues: Visible soft tissues are unremarkable. XR/XR lumbar spine 2-3V* [id number] IMPRESSION: 1. No acute fracture. 2. Moderate lumbar scoliosis, disc and facet degeneration.
--- NOTE | 2023-08-03 12:49 | ED_ITS ---
HPI - Fall General: Chief Complaint: Fall Stated Complaint: MULT FALLS Time Seen by Provider: 08/03/23 12:22 History of Present Illness: Patient presents to the ER with at least 2 falls today. Patient states she was putting away groceries and twisted too fast and lost her balance fell landing on her left hip buttock region. Patient states pain in this region as well as pain in her left knee. There is no shortening or rotation crepitus deformity noted. Patient has not on any blood thinners and there is no loss of consciousness. Fall was unwitnessed. Patient does have OA of bilateral hips and has had total knee replacements bilaterally. 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 Osteopenia Osteopenia Seropositive rheumatoid arthritis of multiple joints Sinusitis, acute Spondylolisthesis of cervical region Spondylolisthesis, lumbar region Stenosis of cervical spine with myelopathy Surgical History History of bilateral knee arthroplasty Family History Mother Cancer Denies family history of Diabetes Dementia Social History Smoking and tobacco/nicotine status: never used tobacco/nicotine Alcohol intake: former Former alcohol use details: Use to be on new year's david only Substance/Drug Use: never Household members: spouse Marital status: Current occupational status: retired Physical Exam Const: COMMON NORMALS: no acute distress, average body habitus, patient oriented x3, no limitations, healthy appearing, alert and well nourished HENMT: COMMON NORMALS: normocephalic, atraumatic, hearing grossly normal bilaterally, external ears normal, Normal external nose present, moist oral mucous membranes and oropharynx normal HEAD & SCALP: normocephalic and atraumatic NOSE: Normal external nose present EXTERNAL EAR: Yes external ears normal Neck/C-Spine: COMMON NORMALS: full ROM, no lymphadenopathy, supple, no mening eal signs, no JVD and Thyroid normal THYROID: Thyroid normal Chest: COMMONS NORMALS: normal inspection of the chest and normal palpation of entire chest wall Resp: COMMON NORMALS: normal respiratory effort, No retractions, No use of accessory muscles and clear to auscultation bilaterally AUSCULTATION: clear to auscultation bilaterally Cardio: COMMON NORMALS: no JVD, regular rate, regular rhythm, S1 normal heart sound present, S2 normal heart sound present, No gallops present (Cardio), No clicks present (Cardio), No murmurs present (Cardio) and No rub (Cardio) RAT E: regular rate RHYTHM: regular rhythm HEART SOUNDS: S1 normal heart sound present and S2 normal heart sound present GI: COMMON NORMALS: Normal to inspection, nondistended, normoactive bowel sounds present, Soft to palpation, non-tender, No hepatosplenomegaly present and no masses PALPATION: Yes Soft to palpation and Yes No hepatosplenomegaly present Back/Pelvis: OTHER: Tender to palpate over left hip and pelvic region. No obvious crepitus deformity. Tender to palpate over lower left knee region medial and laterally. No obvious crepitus deformity. Neuro: COMMON NORMALS: patient oriented x3 SENSORIUM/ORIENTATION: Yes alert MENINGEAL SIGNS: Yes no meningeal signs Course Vital Signs: Vital signs: Vital Signs Temperature 98.6 F 08/03/23 12:23 Pulse Rate 93 08/03/23 12:23 Respiratory Rate 18 08/03/23 12:23 Blood Pressure 156/89 08/03/23 12:23 Pulse Oximetry 93 08/03/23 12:23 MDM - Fall Medical Decision Making Patient fell twice this morning while turning and losing her footing. Patient had all the x-rays of her hip/pelvis, knee, lumbar spine performed no acute changes were noted. Patient will be discharged home to follow-up with her PCP on an as-needed basis. Differential Diagnosis Unlikely syncope, dislocation of shoulder region, fracture of wrist, compression fracture, concussion with loss of consciousness or concussion without loss of consciousness Medical Records I reviewed the patient's medical records. Lab Data I reviewed the patient's lab results. Radiology Impressions Hip/Pelvis X-Ray 08/03/23 12:44 IMPRESSION: No acute fracture. Knee X-Ray 08/03/23 12:44 IMPRESSION: No acute findings. Lumbar Spine X-Ray 08/03/23 12:44 IMPRESSION: 1. No acute fracture. 2. Moderate lumbar scoliosis, disc and facet degeneration. All radiology interpretation(s) finalized by discharge EKG Data EKG 1: I personally reviewed and interpreted this EKG as follows: EKG interpretation date: 08/03/23 EKG interpretation time: 12:26 Prior EKG tracings: not available for review Interpretation: EKG showed ventricular rate 87 bpm AK interval 159, QRS duration 89, QTc 395, ectopic atrial rhythm with occasional PVC, borderline left axis deviation Discharge Plan Discharge Patient Disposition: Home Clinical Impression: Acute pain of left hip, Acute pain of left knee Fall Qualifiers: Encounter type: initial encounter Qualified Code(s): W19.XXXA - Unspecified fall, initial encounter Low back pain Qualifiers: Chronicity: acute Back pain laterality: left Sciatica presence: without sciatica Qualified Code(s): M54.50 - Low back pain, unspecified Condition: Stable Prescriptions: No Action diclofenac sodium 1 % gel 2 g topical QID Qty: 100 2RF Rx Instructions: apply to affected area as needed ascorbic acid (vitamin C) [Vitamin C] 1,000 mg Tablet 1,000 mg PO QAM Multivitamin 50 Plus 1 tab PO DAILY acetaminophen [8 Hour Pain Reliever] 650 mg Tablet Extended Release 650 mg PO Q8H PRN (Reason: Pain) folic acid 1 mg tablet 1 mg PO DAILY carvedilol 6.25 mg tablet 6.25 mg PO BID prednisone 10 mg tablet See Rx Instructions .ROUTE .COMPLEX PRN (Reason: joint pain) Rx Instructions: TAKE 1 TABLET BY MOUTH DAILY FOR 3-7 DAYS NEEDED FOR JOINT PAIN FLARE pravastatin 40 mg tablet 40 mg PO BEDTIME leflunomide 20 mg tablet 20 mg PO QAM pantoprazole 40 mg tablet,delayed release (DR/EC) 40 mg PO QAM lisinopril 40 mg tablet 40 mg PO DAILY hydrochlorothiazide 12.5 mg tablet 12.5 mg PO QAM Discharge Orders: Discharge ED (Routine); Ordered 08/03/23 Ordered By: Augusto Shaffer Referrals: Joshua Hernandez MD [Primary Care Provider] - 1 week Patient Instructions: Musculoskeletal Pain (ED) Activity Restrictions/Additional Instructions: Continue using your [id number]-atostlo Tylenol and diclofenac gel as needed as directed for pain. Please follow-up with your family practice doctor within the next 7 to 10 days for further evaluation and treatment as needed. Coding Level of Care Code ED Bondactor Machine Operator for Keara Dudley
== END 2023-08-03 15:08 | disposition home or self-care (01) ==
PROVIDERS: Emergency Provider Emergency Medicine; PCP Family Medicine
DX: M54.50 Low back pain, unspecified (principal); M25.552 Pain in left hip; M25.562 Pain in left knee; X50.1XXA Overexertion from prolonged static or awkward postures, initial encounter
CPT/HCPCS: 72100; 73502; 73562; 93005; 99284

== ENCOUNTER → 2023-12-22 11:34 | Outpatient (BNVA) | payer MEDICARE, OTHER, SELFPAY | PROVIDERS: PCP Family Medicine; Visit Provider Family Medicine | DX: E03.9 Hypothyroidism, unspecified (principal); E78.5 Hyperlipidemia, unspecified; Z13.220 Encounter for screening for lipoid disorders | CPT/HCPCS: 80053; 80061; 82306; 83036; 84439; 84443; 85025 ==

== ENCOUNTER → 2024-06-17 11:30 | Outpatient (BNVA) | payer MEDICARE, OTHER, SELFPAY | PROVIDERS: PCP Family Medicine; Visit Provider Family Medicine | DX: Z00.00 Encounter for general adult medical examination without abnormal findings (principal); E03.9 Hypothyroidism, unspecified; Z51.81 Encounter for therapeutic drug level monitoring; R63.4 Abnormal weight loss; E55.9 Vitamin D deficiency, unspecified | CPT/HCPCS: 80053; 82306; 84439; 84443; 85025; 86141 ==

== ENCOUNTER → 2024-06-23 11:44 | Outpatient (BNVA) | payer MEDICARE, OTHER, SELFPAY | PROVIDERS: PCP Family Medicine; Visit Provider Internal Medicine Rheumatology | DX: M05.79 Rheumatoid arthritis with rheumatoid factor of multiple sites without organ or systems involvement (principal); Z79.899 Other long term (current) drug therapy; Z71.85 Encounter for immunization safety counseling | CPT/HCPCS: 99214 ==

== ENCOUNTER 2024-07-19 10:54 | Outpatient (CLI) | payer MEDICARE, OTHER, SELFPAY ==
--- NOTE | 2024-07-19 11:00 | CTR_ITS ---
PROCEDURE INFORMATION: Exam: CT Abdomen And Pelvis With Contrast Exam date and time: 07/19/2024 12:15 PM Age: 74 years old Clinical indication: Abdominal pain; Generalized; Patient HX: PT unsure of why she is having this test. Denies abd pain or complaints. PT states she has lost 15lbs but does not know a time frame; Additional info: Abd pain, weight loss TECHNIQUE: Imaging protocol: Computed tomography of the abdomen and pelvis with contrast. Radiation optimization: All CT scans at this facility use at least one of these dose optimization techniques: automated exposure control; mA and/or kV adjustment per patient size (includes targeted exams where dose is matched to clinical indication); or iterative reconstruction. Contrast material: OMNI 350; Contrast volume: 100 ml; Contrast route: INTRAVENOUS (IV); COMPARISON: CR XR hip LT 2-3V wo/w pel* [id number] 08/03/2023 12:48 PM RADIATION DOSE METRICS: Total DLP (mGy-cm): 317.69 FINDINGS: Lungs: Subsegmental bibasilar atelectasis. 11 mm right basilar pulmonary nodule. The visualized lung bases are otherwise grossly clear. Diaphragm: No evidence of diaphragmatic defect. Liver: Hepatic steatosis. No evidence of focal hepatic lesion. Right hepatic lobe cyst noted. Gallbladder and biliary ducts: There is cholelithiasis. No inflammatory changes to suggest acute cholecystitis. No intrahepatic or extrahepatic biliary dilatation. Pancreas: Mildly atrophic. Otherwise grossly unremarkable. Spleen: Multiple splenic calcifications compatible with sequela of a remote granulomatous process. Otherwise grossly unremarkable. Adrenal glands: Unremarkable. Kidneys and ureters: There are simple appearing left-sided renal cysts for which dedicated imaging follow-up is not required. Otherwise no evidence of renal parenchymal abnormality. No hydronephrosis or ureteral stone. Stomach and bowel: Colonic diverticulosis without evidence of acute diverticulitis. No bowel obstruction or perienteric inflammatory changes. Appendix: Normal appendix. Intraperitoneal space: No evidence of free air or fluid collection. Vasculature: No aneurysmal dilatation or dissection of the abdominal aorta. The celiac trunk, SMA and MARY LOU are grossly patent. No evidence of IVC thrombus. The portal vein, SMV and splenic veins are grossly patent. Lymph nodes: No adenopathy. Urinary bladder: Grossly unremarkable. Reproductive: Grossly unremarkable. There is laxity of the pelvic floor. Bones/joints: No evidence of acute fracture or aggressive osseous lesion. Moderate-severe multilevel spondylosis of the lumbar spine with facet arthrosis, osteophytosis and endplate degeneration. Group osteopenia Soft tissues: No evidence of fluid collection or hematoma in the superficial soft tissues. CT/CT abdomen pelvis w con* [id number] IMPRESSION: 1. No evidence of acute abnormality in the abdomen or pelvis. 2. Right lower lobe pulmonary nodule measuring 11 mm. Follow-up up PET-CT is recommended. References: Bri H, et al. Guidelines for Management of Incidental Pulmonary Nodules Detected on CT Images: From the Fleischner Society 2017. Radiology. 2017;284(1):228-243.
[2024-07-19] MEDS: iohexol 350 mg/mL 500 mL Btl (per mL) IV (12:30)
[2024-07-19] MEDS: iohexol 350 mg/mL 500 mL Btl (per mL) PO (12:31)
== END 2024-07-19 10:55 | disposition home or self-care (01) ==
LOC: RAD 10:55
PROVIDERS: PCP Family Medicine; Visit Provider Family Medicine
DX: R63.4 Abnormal weight loss (principal); R10.9 Unspecified abdominal pain; M79.671 Pain in right foot; M79.89 Other specified soft tissue disorders; M06.9 Rheumatoid arthritis, unspecified
CPT/HCPCS: 73630; 74177; 99203

== ENCOUNTER 2024-08-20 06:00 | Outpatient (CLI) | payer MEDICARE, OTHER, SELFPAY | END 2024-08-20 06:01 | disposition home or self-care (01) | LOC: RAD 09-17 08:35 | PROVIDERS: PCP Family Medicine; Visit Provider Family Medicine | DX: R91.1 Solitary pulmonary nodule (principal); R93.3 Abnormal findings on diagnostic imaging of other parts of digestive tract | CPT/HCPCS: 78815; A9552 ==

== ENCOUNTER → 2024-08-23 14:00 | Outpatient (BNVA) | payer MEDICARE, OTHER, SELFPAY | PROVIDERS: PCP Family Medicine; Visit Provider Podiatrist Foot & Ankle Surgery | DX: M79.89 Other specified soft tissue disorders (principal); M06.9 Rheumatoid arthritis, unspecified | CPT/HCPCS: 99213 ==

== ENCOUNTER 2024-08-24 14:27 | Outpatient (CLI) | payer MEDICARE, OTHER, SELFPAY ==
--- NOTE | 2024-08-24 14:31 | MRR_ITS ---
PROCEDURE INFORMATION: Exam: MR Left Lower Extremity Other Than Joint Without Contrast; Foot Exam date and time: 08/24/2024 2:45 PM Age: 74 years old Clinical indication: Other: Growing mass under left hallux. Previously provided history of rheumatoid arthritis. TECHNIQUE: Imaging protocol: Magnetic resonance imaging of the left lower extremity without contrast. Exam focused on the foot. COMPARISON: CR XR foot LT min 3V* [id number] 01/15/2018 1:01 PM FINDINGS: Bones/joints: Osseous alignment is normal. No acute fracture. Mild osteophyte formation is noted at the tarsometatarsal and visualized midfoot articulations. LIGAMENTS: Lisfranc ligament: Unremarkable. No evidence of tear. TENDONS: Flexor tendons of foot: Unremarkable. No evidence of tear. Tibialis posterior tendon: Unremarkable as visualized. Peroneal tendons: Unremarkable as visualized. Extensor tendons of foot: Unremarkable. No evidence of tear. Tibialis anterior tendon: Unremarkable as visualized. Tarsal canal (Sinus tarsi): Not specifically imaged. Tarsal tunnel: Unremarkable. Soft tissues: Moderate subcutaneous edema is greatest in the dorsal and lateral aspect of the mid to lateral foot. Dorsal to the 5th metatarsophalangeal joint, an ovoid slightly septated fluid signal intensity structure within the soft tissues is identified on series 701, image 15 and series 1001 image 4 measuring 1.6 x 1.1 x 1.0 cm. This is in a region of previously noted soft tissue prominence on the comparison radiographs from 2017. Mild abnormal fluid is noted in the intermetatarsal bursa redemonstrated the 1st and 2nd metatarsal head. Plantar fascia: Unremarkable as visualized. MR/MR foot LT wo con* [id number] IMPRESSION: 1. No acute osseous findings. 2. A slightly complex fluid signal intensity structure is noted in the soft tissues dorsal and lateral to the 5th metatarsophalangeal joint corresponding to a region of abnormal soft tissue prominence on the comparison radiographs from 01/15/2018. While this may represent a persistent benign ganglion cyst or a rheumatoid nodule given the previously provided history of rheumatoid arthritis, a solid lesion cannot be entirely excluded as assessment is limited without the administration of intravenous contrast. Consider MRI with and without contrast for more definitive evaluation. 3. Mild midfoot and tarsometatarsal joint primary osteoarthritic changes. 4. Mild intermetatarsal bursitis between the 1st and 2nd metatarsal heads.
== END 2024-08-24 14:28 | disposition home or self-care (01) ==
LOC: RAD 14:27
PROVIDERS: PCP Family Medicine; Visit Provider Podiatrist Foot & Ankle Surgery
DX: R22.42 Localized swelling, mass and lump, left lower limb (principal); M79.89 Other specified soft tissue disorders
CPT/HCPCS: 73718

== ENCOUNTER 2024-09-03 10:49 | Outpatient (CLI) | payer MEDICARE, OTHER, SELFPAY ==
--- NOTE | 2024-09-03 11:30 | PETR_ITS ---
PROCEDURE INFORMATION: Exam: PET/CT Skull Base to Mid-thigh Exam date and time: 09/03/2024 11:46 AM Age: 74 years old Clinical indication: Abnormal findings; 11mm right lower lobe lung nodule LABS AND CLINICAL REPORTS: Glucose: 88 mg/dl Treatment strategy for malignancy (PET staging): Initial Staging (PI) TECHNIQUE: Imaging protocol: Following at least four-hour fasting and following the injection of radiopharmaceutical, low dose CT images were obtained. Then, PET images were obtained. Attenuation corrected images were constructed using the CT scan. Fused images of PET and CT were reviewed. The standardized uptake values (SUV) reported below are maximum values within a region of interest, expressed in gm/ml. Exam includes orbital meatal line to mid-thigh. SUV normalization method: BodyWeight Radiopharmaceutical: 10.89 mCi F-18 FDG (Fluorodeoxyglucose), IV. Time of imaging post radiopharmaceutical administration: 46 minutes Injection site: left hand COMPARISON: CT abdomen pelvis w con* [id number] 07/19/2024 FINDINGS: Brain: Normal physiologic uptake. Pharynx: No abnormal uptake. Larynx: No abnormal uptake. Thyroid: Diffusely increased uptake up to 8.1 SUV suggestive of thyroiditis with no abnormal enlargement or discrete nodules. Lungs, pleura and trachea: 1.2 x 1.1 cm right lower lobe nodule (series 202, image 180) is not FDG avid (1.9 SUV). Mildly increased uptake of 3.3 SUV in the perihilar right upper lobe on series 301, image 78 is not associated with discrete nodule on CT portion of the exam. No pleural effusion. Heart: Unremarkable. There is no cardiomegaly. Severe coronary artery calcification is present. There is no pericardial effusion. Mediastinal space: See below in lymph nodes . Liver: No abnormal uptake. Maximum uptake is 3.4 SUV. Gallbladder and biliary ducts: No abnormal uptake. Pancreas: No abnormal uptake. Spleen: No abnormal uptake. No splenomegaly. Adrenal glands: No abnormal uptake. Kidneys and ureters: Normal no hydronephrosis. Stomach and bowel: small focus of intense uptake (15.2 SUV) in the proximal sigmoid colon on series 301, image [address] abnormality is indeterminate. There is diffuse mild diverticulosis in the left and right colon with no CT signs of acute diverticulitis. No abnormal dilatation of the bowel. Vasculature: No abnormal uptake. No aortic aneurysm. Lymph nodes: No FDG avid lymphadenopathy in the neck, chest, abdomen, pelvis, and extremities. Skeleton: Diffusely increased linear synovial uptake in the shoulders is compatible with benign finding. Benign intramuscular uptake in the posterior lower neck Soft tissues: No mass. PET/PET skull to thigh INIT [id number] IMPRESSION: 1. 1.2 cm right lower lobe nodule is not FDG avid (1.9 SUV). Subcentimeter focus of slightly increased uptake of 3.3 SUV in the right upper lobe with no discrete corresponding nodule on CT is indeterminate. 2. Small FDG avid focus in the proximal sigmoid colon for clinical correlation with colonoscopy to assess for the mass/polyp. 3. Diffusely increased uptake in the thyroid in keeping with thyroiditis.
== END 2024-09-03 10:50 | disposition home or self-care (01) ==
PROVIDERS: PCP Family Medicine; Visit Provider Family Medicine
DX: R91.8 Other nonspecific abnormal finding of lung field (principal); R93.89 Abnormal findings on diagnostic imaging of other specified body structures; I25.84 Coronary atherosclerosis due to calcified coronary lesion
CPT/HCPCS: 78815; A9552

== ENCOUNTER 2024-10-25 16:44 | Outpatient (CLI) | payer MEDICARE, OTHER, SELFPAY ==
--- NOTE | 2024-10-25 16:45 | CT_ITS ---
WS: [id number] CT chest wo con [id number] HISTORY: Lung nodule TECHNIQUE: Axial imaging performed through the thorax. Coronal and sagittal reformats are submitted. All CT scans at [facility] use at least one of these dose optimization techniques: automated exposure control; mA and/or kV adjustment per patient size (includes targeted exams where dose is mat ched to clinical indication); or iterative reconstruction. CONTRAST: None DLP: 303.67 mGy.cm COMPARISON: PET/CT 09/03/2024, prior CT 07/19/2024 Lungs and central airway: Mild pulmonary hyperexpansion. Well-circumscribed nodule at the RIGHT lung base measures 6 x 11 mm and has not increased in size since 07/19/2024. No nodular or developing mass in the RIGHT hilar region to correspond to the recent PET/CT finding. No additional mass or nodule. Pleura: Normal. No pleural effusion. Heart and pericardium: Mild cardiomegaly. No pericardial effusion. Extensive coronary artery calcific ations. Mediastinum and nancy: No mediastinum or hilar adenopathy. Vessels: Moderate atherosclerosis thoracic aorta with mild ectasia. Normal size pulmonary artery. Chest wall and lower neck: No soft tissue masses. Upper abdomen: Incompletely included hepatic cyst measures 12 mm. No increase in size. No adrenal mas s. Suprarenal coronary artery calcifications. Mildly heterogeneous gallbladder content. Suspect stone s. No adjacent inflammation. Osseous structures: Straightening of the normal thoracic kyphosis. CT/CT chest wo con [id number] IMPRESSION: 1. No increase in size of the non-FDG avid RIGHT lower lobe pulmonary nodule m easuring 6 x 11 mm. 2. No nodule or abnormality noted at the RIGHT hilum to correspond to the incr eased uptake on recent PET/CT. 3. No mediastinal or hilar adenopathy. 4. Mild cardiomegaly with extensive coronary artery calcifications. 5. Suspect cholelithiasis. No adjacent inflammation.
== END 2024-10-25 16:45 | disposition home or self-care (01) ==
LOC: RAD 16:47
PROVIDERS: PCP Family Medicine; Visit Provider Family Medicine
DX: R91.1 Solitary pulmonary nodule (principal); I70.0 Atherosclerosis of aorta; I25.10 Atherosclerotic heart disease of native coronary artery without angina pectoris; R91.8 Other nonspecific abnormal finding of lung field; I77.810 Thoracic aortic ectasia; K76.89 Other specified diseases of liver; R93.3 Abnormal findings on diagnostic imaging of other parts of digestive tract; M40.294 Other kyphosis, thoracic region
CPT/HCPCS: 71250

== ENCOUNTER → 2024-10-27 11:05 | Outpatient (BNVA) | payer MEDICARE, OTHER, SELFPAY | PROVIDERS: PCP Family Medicine; Visit Provider Internal Medicine Rheumatology | DX: Z79.899 Other long term (current) drug therapy (principal); M05.79 Rheumatoid arthritis with rheumatoid factor of multiple sites without organ or systems involvement; Z71.89 Other specified counseling | CPT/HCPCS: 36415; 80076; 82565; 85025; 85651; 86140; 99214 ==

== ENCOUNTER → 2024-10-28 11:00 | Outpatient (BNVA) | payer MEDICARE, OTHER, SELFPAY | PROVIDERS: PCP Family Medicine; Visit Provider Student in an Organized Health Care Education/Training Program | DX: R94.8 Abnormal results of function studies of other organs and systems (principal) | CPT/HCPCS: 99204; 99214 ==

== ENCOUNTER 2024-12-07 08:09 | Day surgery (SDC) | payer MEDICARE, OTHER, SELFPAY ==
[2024-12-07 08:11] VITALS: BP 137/103; PULSE 66; RESP 18; TEMP 36.4; O2SAT 96
--- NOTE | 2024-12-07 08:31 | ANES.PREANE2 ---
Pre-Anesthetic Assessment Height/Weight: Height 1.6 m Weight 69.4 kg Temp Pulse Resp BP Pulse Ox O2 Del Method 97.5 F L 66 18 137/103 96 Room Air 12/07/24 08:11 12/07/24 08:11 12/07/24 08:11 12/07/24 08:11 12/07/24 08:11 12/07/24 08:11 Operation Date: 12/07/24 09:00 Proposed Procedures p Colonoscopy 19629, G0105, R94.8(Not Applicable) - Kash Summers MD Familial anesthetic complications: none Was Beta Vianca taken within 24 hours: Yes Was Clonidine taken within 24 hours: N/A Social No alcohol and No tobacco Exam alert and oriented x 3 Airway Submandibular: within normal limits Cervical ROM: within normal limits Mallampati: Class III Dentition: false and partials Pulmonary None reported CV/HEM Hypertension None reported Hepatic None reported GI None reported Metabolic Hyperlipidemia [facility] [place] Rheumatoid Arthritis Neuropsych None reported Anesthetic Plan ASA status: 3 Anesthesia: Anesthesia Evaluation and MAC Medications/Allergies Home Medications ?Medication ?Instructions ?Recorded ?Confirmed ?Last Taken ?Type Multivitamin 50 Plus 1 tab PO DAILY 02/02/21 12/02/24 12/06/24 History acetaminophen 650 mg 650 mg PO Q8H PRN Pain 02/02/21 12/02/24 12/06/24 History tablet,extended release (8 Hour Pain Reliever) ascorbic acid (vitamin C) 1,000 mg 1,000 mg PO QAM 02/02/21 12/02/24 12/06/24 History tablet (Vitamin C) carvedilol 6.25 mg tablet 6.25 mg PO BID #180 tabs 10/19/24 12/02/24 12/07/24 Rx folic acid 1 mg tablet 1 mg PO DAILY #90 tabs 10/19/24 12/02/24 12/06/24 Rx furosemide 20 mg tablet 20 mg PO DAILY #90 tabs 10/19/24 12/02/24 12/06/24 Rx hydrochlorothiazide 12.5 mg tablet 12.5 mg PO QAM #90 tabs 10/19/24 12/02/24 12/06/24 Rx lisinopril 40 mg tablet 40 mg PO DAILY blood pressure #90 10/19/24 12/02/24 12/06/24 Rx tabs pantoprazole 40 mg tablet,delayed 40 mg PO QAM #90 tabs 10/19/24 12/02/24 12/06/24 Rx release potassium chloride 10 mEq 10 meq PO DAILY #90 tabs 10/19/24 12/02/24 12/06/24 Rx tablet,extended release (Klor-Con) pravastatin 40 mg tablet 40 mg PO BEDTIME #90 tabs 10/19/24 12/02/24 12/06/24 Rx leflunomide 20 mg tablet 20 mg PO QAM #90 tabs 10/27/24 12/02/24 12/06/24 Rx prednisone 10 mg tablet See Rx Instructions .Route 10/27/24 12/02/24 12/06/24 Rx .COMPLEX PRN joint pain #30 tabs Allergies Allergy/AdvReac Type Severity Reaction Status Date / Time Penicillins Allergy Unknown rash Verified 12/02/24 12:08 Sulfa (Sulfonamide Allergy Unknown Unknown Verified 12/02/24 12:08 Antibiotics) bacitracin (From Neosporin Allergy rash,swelli Verified 12/02/24 12:08 ([id number])) ng,itching neomycin (From Neosporin Allergy rash,swelli Verified 12/02/24 12:08 ([id number])) ng,itching polymyxin B (From Neosporin Allergy rash,swelli Verified 12/02/24 12:08 ([id number])) ng,itching PFSH Anesthesia Medical History Muscle cramps Diverticulosis Hiatal hernia Gastritis and duodenitis Encounter for screening colonoscopy Sinusitis, acute Spondylolisthesis, lumbar region Spondylolisthesis of cervical region Displacement of lumbar disc with radiculopathy Stenosis of cervical spine with myelopathy Osteopenia Crossover toe deformity of right foot Immunization counseling High risk medication use Cervical disc disorder with myelopathy of mid-cervical region Lumbar stenosis with neurogenic claudication Intervertebral disc disorder with radiculopathy of lumbosacral region Immunosuppression Osteopenia 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
--- NOTE | 2024-12-07 08:41 | W.PM.OPSFHP ---
Same Day Surgery H&P Indication for Procedure/HPI DATE OF PROCEDURE: December 07, 2024 CHIEF COMPLAINT/INDICATIONFOR SURGICAL PROCEDURE: PET uptake sigmoid colon PREOP DIAGNOSIS: PET uptake sigmoid colon PLANNED PROCEDURE: Operation Date: 12/07/24 09:00 Proposed Procedures p Colonoscopy 00513, G0105, R94.8(Not Applicable) - Kash Summers MD Medications/Allergies* Home Medications ?Medication ?Instructions ?Recorded ?Confirmed ?Type Multivitamin 50 Plus 1 tab PO DAILY 02/02/21 12/02/24 History acetaminophen 650 mg 650 mg PO Q8H PRN Pain 02/02/21 12/02/24 History tablet,extended release (8 Hour Pain Reliever) ascorbic acid (vitamin C) 1,000 mg 1,000 mg PO QAM 02/02/21 12/02/24 History tablet (Vitamin C) Allergies/Adverse Reactions Allergy/AdvReac Type Severity Reaction Status Date / Time Penicillins Allergy Unknown rash Verified 12/02/24 12:08 Sulfa (Sulfonamide Allergy Unknown Unknown Verified 12/02/24 12:08 Antibiotics) bacitracin (From Neosporin Allergy rash,swelli Verified 12/02/24 12:08 ([id number])) ng,itching neomycin (From Neosporin Allergy rash,swelli Verified 12/02/24 12:08 ([id number])) ng,itching polymyxin B (From Neosporin Allergy rash,swelli Verified 12/02/24 12:08 ([id number])) ng,itching Pertinent History/Comorbid Conditions* Medical History (Updated 09/27/24 @ 09:32 by Joshua Hernandez MD) Muscle cramps Diverticulosis Hiatal hernia Gastritis and duodenitis Encounter for screening colonoscopy Sinusitis, acute Spondylolisthesis, lumbar region Spondylolisthesis of cervical region Displacement of lumbar disc with radiculopathy Stenosis of cervical spine with myelopathy Osteopenia Crossover toe deformity of right foot Immunization counseling High risk medication use Cervical disc disorder with myelopathy of mid-cervical region Lumbar stenosis with neurogenic claudication Intervertebral disc disorder with radiculopathy of lumbosacral region Immunosuppression Osteopenia 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 Seropositive rheumatoid arthritis of multiple joints Surgical History (Updated 12/07/19 @ 06:59 by Angela Mitchell MD) History of bilateral knee arthroplasty Family History (Updated 03/09/20 @ 09:10 by Conner Vora) Cancer Mother Denies family history of Diabetes Dementia Social History Smoking and tobacco/nicotine status: never used tobacco/nicotine Alcohol intake: former Former alcohol use details: Use to be on new year's david only Substance/Drug Use: never Household members: spouse Marital status: Current occupational status: retired Pertinent Exam Findings alert, oriented x 3, clear to auscultation bilaterally, regular rate & rhythm and procedure specific exam findings abdomen soft, nt, nd Recommendations Surgery/Procedure today Coding Level of Care Code Acute Code for Chg Fwd
[2024-12-07] MEDS: sodium chloride 0.9% 500 ML 15 ML IV (08:52)
[2024-12-07 09:10] LABS: Anion Gap 16.6 (5-19); Blood Urea Nitrogen 8 mg/dL (8-23); Calcium 8.8 mg/dL (8.5-10.5); Carbon Dioxide 20 mmol/L (22-29); Chloride 110 mmol/L (98-107); Creatinine Clr Calc Pharmacy 57.6583; Glucose 87 mg/dL (65-115); Osmolality Calculated 294 mOsm/kg (285-295); Potassium 3.6 mmol/L (3.5-5.1); Sodium 143 mmol/L (136-145)
[2024-12-07 10:26] VITALS: BP 106/56; PULSE 66; RESP 18; TEMP 36.5; O2SAT 94
--- NOTE | 2024-12-07 10:34 | ANE.PACU2 ---
Inpatient post-anesthesia follow up: Airway intact: Yes Vital signs: Temperature 97.7 F Pulse Rate 66 Respiratory Rate 18 Blood Pressure 106/56 Pulse Oximetry 94 Oxygen Delivery Me thod Room Air Oxygen Flow Rate Fraction of Inspir ed Oxygen Hydration adequate: Yes Nausea and vomiting: No Pain level: 1 Mental status: Baseline
[2024-12-07 10:36] VITALS: BP 110/70; PULSE 66; RESP 18; TEMP 36.2; O2SAT 94
== END 2024-12-07 11:07 | disposition home or self-care (01) ==
PROVIDERS: Anesthesiology; PCP Family Medicine; Visit Provider Student in an Organized Health Care Education/Training Program
PROC: 0DJD8ZZ Inspection of Lower Intestinal Tract, Via Natural or Artificial Opening Endoscopic (ICD-10-PCS; CPT 45378; principal; 2024-12-07 09:00)
DX: D12.5 Benign neoplasm of sigmoid colon (principal); K57.30 Diverticulosis of large intestine without perforation or abscess without bleeding; I10 Essential (primary) hypertension; E78.5 Hyperlipidemia, unspecified; M06.9 Rheumatoid arthritis, unspecified; Z79.899 Other long term (current) drug therapy; Z88.0 Allergy status to penicillin; Z88.2 Allergy status to sulfonamides; Z88.1 Allergy status to other antibiotic agents; Z96.653 Presence of artificial knee joint, bilateral; D84.9 Immunodeficiency, unspecified; M05.89 Other rheumatoid arthritis with rheumatoid factor of multiple sites
CPT/HCPCS: 36415; 45385; 80048; 88305; J2704; J7040

== ENCOUNTER → 2024-12-20 11:03 | Outpatient (BNVA) | payer MEDICARE, OTHER, SELFPAY | PROVIDERS: PCP Family Medicine; Visit Provider Student in an Organized Health Care Education/Training Program | DX: Z09 Encounter for follow-up examination after completed treatment for conditions other than malignant neoplasm (principal) | CPT/HCPCS: 99213 ==

== ENCOUNTER 2025-01-20 15:22 | Outpatient (RCR) | payer MEDICARE, OTHER, SELFPAY | END 2025-02-09 23:59 | disposition home or self-care (01) | LOC: SPT 15:22 | PROVIDERS: PCP Family Medicine; Visit Provider Family Medicine | DX: M25.561 Pain in right knee (principal); M25.562 Pain in left knee | CPT/HCPCS: 97110; 97161 ==

== ENCOUNTER 2025-02-10 06:00 | Outpatient (RCR) | payer MEDICARE, OTHER, SELFPAY | END 2025-03-12 23:59 | disposition home or self-care (01) | LOC: SPT 06:00 | PROVIDERS: PCP Family Medicine; Visit Provider Family Medicine | DX: M25.561 Pain in right knee (principal); M25.562 Pain in left knee | CPT/HCPCS: 97110 ==

== ENCOUNTER → 2025-02-16 10:29 | Outpatient (BNVA) | payer MEDICARE, OTHER, SELFPAY | PROVIDERS: PCP Family Medicine; Visit Provider Internal Medicine Rheumatology | DX: M05.79 Rheumatoid arthritis with rheumatoid factor of multiple sites without organ or systems involvement (principal); Z79.899 Other long term (current) drug therapy; Z71.89 Other specified counseling | CPT/HCPCS: 36415; 80076; 82565; 85025; 85651; 86140; 99214 ==

== ENCOUNTER 2025-02-17 07:39 | Outpatient (CLI) | payer MEDICARE, OTHER, SELFPAY ==
--- NOTE | 2025-02-17 07:45 | USCV_ITS ---
Elisabet Cook Age: 74 Gender: F : 1950 Exam Date: 02/17/2025 07:56 Ordering Phys: Joshua Hernandez MD Technologist: Exam Location: [facility] [place] Indication: sob cp BP: 120 / 71 HR: 61 Rhythm: Sinus Technical Quality: Adequate MEASUREMENTS (Male / Female) Normal Values 2D ECHO LV Diastolic Diameter PLAX 4.1 cm 4.2 - 5.9 / 3.9 - 5.3 cm IVS Diastolic Thickness 1.2 cm 0.6 - 1.0 / 0.6 - 0.9 cm IVS Systolic Thickness 1.5 cm LVPW Diastolic Thickness 1.2 cm 0.6 - 1.0 / 0.6 - 0.9 cm LVPW Systolic Thickness 1.4 cm LVOT Diameter 2.0 cm LV Ejection Fraction 2D Teich 67.0 % LV Ejection Fraction MOD 4C 71.3 % LV Ejection Fraction MOD 2C 66.0 % LV Ejection Fraction 2C AL 68.0 % LA Diameter 4.4 cm RA Systolic Volume 4C AL 32.7 ml RA Systolic Volume 4C MOD 31.5 ml Aorta at Sinotubular Diameter 2.8 cm IVC Diameter 1.9 cm M-MODE LA Ao Ratio MM 1.5 AV Cusp Separation MM 1.9 cm DOPPLER AV Peak Velocity 168.0 cm/s LVOT Peak Velocity 92.0 cm/s AV Area Cont Eq vti 1.8 cm squared AV Area Cont Eq pk 1.8 cm squared MV Area PHT 3.9 cm squared Mitral E to A Ratio 1.1 TV Peak Velocity 232.0 cm/s TR Peak Velocity 243.0 cm/s TR Peak Gradient 23.6 mmHg TV Peak E Velocity 74.0 cm/s PV Peak Velocity 98.0 cm/s FINDINGS Left Ventricle Normal left ventricular size, systolic function and wall thickness, with no regional wall motion abnormalities. Left ventricular ejection fraction is estimated at 60 %. Grade II/IV diastolic dysfunction, moderately elevated filling pressures. Right Ventricle The right ventricle is normal in size and function. Right Atrium The right atrium is normal in size. Left Atrium Moderately increased left atrial size. Mitral Valve Thickened mitral valve. No mitral valve stenosis. Mild mitral valve regurgitation. Aortic Valve Moderate aortic valve calcification. No aortic valve stenosis. Trace to mild aortic valve regurgitation. Tricuspid Valve Mild tricuspid valve regurgitation. Pulmonic Valve Mild pulmonary valve regurgitation. Pericardium Normal pericardium without effusion. Aorta Normal ascending aorta dimension. IVC The inferior vena cava appears normal. CONCLUSIONS Normal left ventricular size, systolic function and wall thickness, with no regional wall motion abnormalities. Left ventricular ejection fraction is estimated at 60 %. Grade II/IV diastolic dysfunction, moderately elevated filling pressures. Moderately increased left atrial size. Thickened mitral valve. No mitral valve stenosis. Mild mitral valve regurgitation. Moderate aortic valve calcification. No aortic valve stenosis. Trace to mild aortic valve regurgitation. Mild pulmonary valve regurgitation. There is no pericardial effusion. Right atrial pressure is around 5 mm of mercury. Rupesh Walters MD (Electronically Signed) Final Date: 03 Mar 2025 20:09 S
== END 2025-02-17 07:40 | disposition home or self-care (01) ==
PROVIDERS: PCP Family Medicine; Visit Provider Family Medicine
DX: R01.1 Cardiac murmur, unspecified (principal); R60.0 Localized edema; R93.1 Abnormal findings on diagnostic imaging of heart and coronary circulation; I51.7 Cardiomegaly; I34.0 Nonrheumatic mitral (valve) insufficiency; I35.8 Other nonrheumatic aortic valve disorders; I35.1 Nonrheumatic aortic (valve) insufficiency; I37.1 Nonrheumatic pulmonary valve insufficiency
CPT/HCPCS: 93306

== ENCOUNTER 2025-03-11 20:58 | Inpatient (IN) | payer MEDICARE, OTHER, SELFPAY ==
[2025-03-11 21:00] VITALS: BP 100/59; PULSE 65; RESP 16; TEMP 36.4; O2SAT 96; BMI 24.3
--- NOTE | 2025-03-11 21:31 | CTR_ITS ---
PROCEDURE INFORMATION: Exam: CT Head Without Contrast Exam date and time: 03/11/2025 9:42 PM Age: 74 years old Clinical indication: Altered mental status/memory loss; Confusion or disorientation; Confusion after waking up from a nap per . TECHNIQUE: Imaging protocol: Computed tomography of the head without contrast. Radiation optimization: All CT scans at this facility use at least one of these dose optimization techniques: automated exposure control; mA and/or kV adjustment per patient size (includes targeted exams where dose is matched to clinical indication); or iterative reconstruction. COMPARISON: PT PET skull to thigh INIT [id number] 09/03/2024 11:46 AM RADIATION DOSE METRICS: Total DLP (mGy-cm): 956.08 FINDINGS: Brain: Age appropriate atrophy and small vessel ischemic change. There are multiple small hypodensities in the basal ganglia consistent with remote lacunar infarctions. No evidence of intracranial hemorrhage, mass effect, midline shift or extra-axial fluid collections. Midline structures are normal. Morrison-white matter differentiation is normal. Cerebral ventricles: No ventriculomegaly. Paranasal sinuses: Visualized sinuses are unremarkable. No fluid levels. Mastoid air cells: Visualized mastoid air cells are well aerated. Bones: Unremarkable. No acute fracture. Soft tissues: Unremarkable. Vasculature: Carotid and vertebral artery atherosclerotic calcification. CT/CT head wo con* [id number] IMPRESSION: No acute intracranial abnormality.
--- NOTE | 2025-03-11 21:31 | XRR_ITS ---
PROCEDURE INFORMATION: Exam: XR Chest Exam date and time: 03/11/2025 9:35 PM Age: 74 years old Clinical indication: Other: AMS; Confusion after waking up from a nap per . TECHNIQUE: Imaging protocol: Radiologic exam of the chest. Views: 1 view. COMPARISON: CT chest wo con [id number] 10/25/2024 4:52 PM FINDINGS: Lungs: Unremarkable. No consolidation. Pleural spaces: Unremarkable. No pleural effusion. No pneumothorax. Heart/Mediastinum: Cardiac silhouette is at the upper limit of normal. Vasculature: There is atherosclerotic calcification in the aortic arch. Bones/joints: Mild right convex scoliosis in the midthoracic spine. XR/XR chest 1V portable [id number] IMPRESSION: No acute cardiopulmonary abnormality.
--- NOTE | 2025-03-11 21:35 | W.ED.AMS ---
HPI - Altered Mental Status General: Chief Complaint: Altered Mental Status Stated Complaint: Confused Time Seen by Provider: 03/11/25 21:14 History of Present Illness: 74-year-old female presents to the ER chief complaint of having some altered mental status was witnessed by her prior to arrival woke up from a nap which patient was appearing confused and with difficulty with word finding per the and he is concerned the patient may have suffered a stroke patient is moving her arms and legs fully the patient initially requested to leave she been taking her medication she is incontinent of urine which she wears a brief patient denies any current symptoms reports no prior history of strokes or heart attacks denying cardiac issues Patient is on a water pill as well carvedilol clearly noted heart issues as well as tramadol for pain control patient denies recent falls or trauma or any other associated symptoms. Patient was brought in by her for further assessment and management. Associated symptoms: Deny depression Related Data Previous Rx's ?Medication ?Instructions ?Recorded folic acid 1 mg tablet 1 mg PO DAILY #90 tabs 10/19/24 carvedilol 6.25 mg tablet 6.25 mg PO BID #180 tabs 02/10/25 furosemide 40 mg tablet 40 mg PO DAILY #90 tabs 02/10/25 hydrochlorothiazide 12.5 mg tablet 12.5 mg PO QAM #90 tabs 02/10/25 lisinopril 40 mg tablet 40 mg PO DAILY blood pressure #90 02/10/25 tabs potassium chloride 10 mEq 10 meq PO DAILY #90 tabs 02/10/25 tablet,extended release (Klor-Con) pravastatin 40 mg tablet 40 mg PO BEDTIME #90 tabs 02/10/25 leflunomide 20 mg tablet 20 mg PO QAM #90 tabs 02/16/25 prednisone 20 mg tablet See Rx Instructions PO .COMPLEX 02/16/25 PRN joint pain flare #30 tabs tramadol 50 mg tablet 50 mg PO BID PRN pain (scale score 02/16/25 7-10) #14 tabs tramadol 50 mg tablet 50 mg PO BID PRN pain (scale score 02/16/25 7-10) #60 tabs Allergies Allergy/AdvReac Type Severity Reaction Status Date / Time Penicillins Allergy Unknown rash Verified 02/16/25 11:06 Sulfa (Sulfonamide Allergy Unknown Unknown Verified 02/16/25 11:06 Antibiotics) bacitracin (From Neosporin Allergy rash,swelli Verified 02/16/25 11:06 ([id number])) ng,itching neomycin (From Neosporin Allergy rash,swelli Verified 02/16/25 11:06 ([id number])) ng,itching polymyxin B (From Neosporin Allergy rash,swelli Verified 02/16/25 11:06 ([id number])) ng,itching Review of Systems General: Reports: 10 or more systems reviewed and unremarkable except in HPI and below Const: Denies: fever(s), chills, fatigue or malaise Eyes: Denies: change in vision or blurry vision Card: Denies: chest pain or palpitations Resp: Denies: dyspnea or productive cough GI: Denies: abdominal pain, nausea or vomiting : Denies: flank pain Musc: Denies: extremity pain or extremity swelling Skin/Breast: Denies: rash or pruritus Neuro: Reports: confusion; Denies: headache(s) Psych: Denies: anxiety or depression Ashish/Lymph: Denies: easy bleeding All/Imm: Denies: urticaria, throat swelling or facial swelling PFSH ED PFSH: Medical History Muscle cramps Diverticulosis Hiatal hernia Gastritis and duodenitis Encounter for screening colonoscopy Sinusitis, acute Spondylolisthesis, lumbar region Spondylolisthesis of cervical region Displacement of lumbar disc with radiculopathy Stenosis of cervical spine with myelopathy Osteopenia Crossover toe deformity of right foot Immunization counseling High risk medication use Cervical disc disorder with myelopathy of mid-cervical region Lumbar stenosis with neurogenic claudication Intervertebral disc disorder with radiculopathy of lumbosacral region Immunosuppression Osteopenia 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 Seropositive rheumatoid arthritis of multiple joints Surgical History History of bilateral knee arthroplasty Family History Mother Cancer Denies family history of Diabetes Dementia Social History Smoking and tobacco/nicotine status: never used tobacco/nicotine Alcohol intake: former Former alcohol use details: Use to be on new year's david only Substance/Drug Use: never Household members: spouse Marital status: Current occupational status: retired Physical Exam Const: COMMON NORMALS: no acute distress, patient oriented x3 and healthy appearing OTHER: Alert oriented x 3 GCS of 15 NIH is 0 heavy stench of urine noted on exam HENMT: COMMON NORMALS: normocephalic and atraumatic HEAD & SCALP: normocephalic and atraumatic Eye: COMMON NORMALS: Equal, round and reactive pupils present and EOMs intact bilaterally PUPIL: Yes Equal, round and reactive pupils present Neck/C-Spine: COMMON NORMALS: full ROM, supple and no JVD Lymph: LYMPHATIC: no lymphadenopathy noted Chest: COMMONS NORMALS: normal inspection of the chest and normal palpation of entire chest wall Resp: COMMON NORMALS: normal respiratory effort, No retractions and clear to auscultation bilaterally EFFORT & INSPECTION: Yes able to speak in complete sentences and Yes symmetric chest movement AUSCULTATION: clear to auscultation bilaterally Cardio: COMMON NORMALS: no JVD, regular rate and regular rhythm RATE: regular rate RHYTHM: regular rhythm GI: COMMON NORMALS: Normal to inspection, nondistended, normoactive bowel sounds present, Soft to palpation and non-tender INSPECTION: Yes normal to inspection PALPATION: Yes Soft to palpation : COMMON NORMALS: Yes no CVA tenderness BLADDER/KIDNEY EXAM: Yes no CVA tenderness Back/Pelvis: COMMON NORMALS: no CVA tenderness Extremity: COMMON NORMALS: normal to inspection and full ROM Neuro: COMMON NORMALS: patient oriented x3, CN's II-XII intact bilaterally, moves all extremities and no focal motor deficits Psych: COMMON NORMALS: mental status grossly normal, Normal thought process present, cooperative and normal affect THOUGHT PROCESS: Normal thought process present Skin: COMMON NORMALS: no rashes or lesions noted GENERAL SKIN EXAM: no rashes or lesions noted Course Vital Signs: Vital signs: Vital Signs Temperature 97.6 F 03/11/25 21:00 Pulse Rate 76 03/12/25 00:00 Respiratory Rate 16 03/12/25 00:00 Blood Pressure 112/58 03/12/25 00:00 Pulse Oximetry 92 03/12/25 00:00 Oxygen Delivery Me thod Room Air 03/12/25 00:00 MDM - Altered Mental Status Medical Decision Making Due to patient's symptoms and condition IV established basic lab work imaging will be obtained there is a heavy states urine exam patient may be having a urinary tract infection that that could be causing some of her confusion and concerns we will continue to follow with the basic neurological workup. Patient was not found to have speech septic or have a UTI patient's heart rate has been intermittently been junctional bradycardia with improvement of troponins within also elevated on unknown certainty also patient was found to be in renal failure with a creatinine 2.60 BUN of 48 due to only findings patient was temporary started on a heparin drip for precautionary for potential cardiac etiology discussed patient's case with Dr. Montgomery has granted acceptance patient will be going to [facility] for further assessment and management Lab Data 03/11/25 21:54 03/11/25 21:54 Radiology Impressions Chest X-Ray 03/11/25 21:31 IMPRESSION: No acute cardiopulmonary abnormality. Head CT 03/11/25 21:31 IMPRESSION: No acute intracranial abnormality. Laboratory Results WBC 4.53 10^3/uL (3.29-11.43) 03/11/25 21:54 RBC 3.78 10^6/uL (3.85-5.65) L 03/11/25 21:54 Hgb 11.60 g/dL (11.27-16.99) 03/11/25 21:54 Hct 35.9 % (36-47) L 03/11/25 21:54 MCV 95.0 fl (85-98) 03/11/25 21:54 MCH 30.7 pg (27-33) 03/11/25 21:54 MCHC 32.3 g/dL (30-55) 03/11/25 21:54 RDW 12.5 % (12.1-15.1) 03/11/25 21:54 Plt Count 209 10^3/cmm (157-399) 03/11/25 21:54 MPV 10.4 fL (7.4-10.4) 03/11/25 21:54 Neut % (Auto) 48.1 % 03/11/25 21:54 Lymph % (Auto) 33.8 % 03/11/25 21:54 [place] % (Auto) 12.6 % 03/11/25 21:54 Eos % (Auto) 4.2 % 03/11/25 21:54 Baso % (Auto) 1.1 % 03/11/25 21:54 Neut # (Auto) 2.18 10^3/uL (1.8-7.7) 03/11/25 21:54 Lymph # (Auto) 1.5 10^3/uL (0.8-4.8) 03/11/25 21:54 [place] # (Auto) 0.6 10^3/uL (0.2-0.9) 03/11/25 21:54 Eos # (Auto) 0.2 10^3/uL (0.0-0.8) 03/11/25 21:54 Baso # (Auto) 0.1 10^3/uL (0.0-0.1) 03/11/25 21:54 Nucleated RBC % (auto) 0 % 03/11/25 21:54 Nucleated RBCs # 0.0 /100WBC 03/11/25 21:54 Sodium 137 mmol/L (136-145) 03/11/25 21:54 Potassium 3.6 mmol/L (3.5-5.1) 03/11/25 21:54 Chloride 95 mmol/L (98-107) L 03/11/25 21:54 Carbon Dioxide 24 mmol/L (22-29) 03/11/25 21:54 Anion Gap 21.6 (5-19) H 03/11/25 21:54 BUN 48 mg/dL (8-23) H 03/11/25 21:54 Creatinine 2.6 mg/dL (0.5-0.9) H 03/11/25 21:54 GFR Calculation Not Reportable 03/11/25 21:54 Glucose 95 mg/dL (65-115) 03/11/25 21:54 Calculated Osmolality 296 mOsm/kg (285-295) H 03/11/25 21:54 Lactic Acid 1.1 mmol/L (0.5-2.2) 03/12/25 00:46 Calcium 9.0 mg/dL (8.5-10.5) 03/11/25 21:54 Total Bilirubin 0.4 mg/dL (0.15-1.2) 03/11/25 21:54 AST 12 U/L (0-32) 03/11/25 21:54 ALT < 5 U/L (0-33) 03/11/25 21:54 Alkaline Phosphatase 98 U/L (35-105) 03/11/25 21:54 Troponin T Baseline 42 ng/L (0-10) H 03/11/25 21:54 Troponin T 120 Minute 38.35 ng/L (0-10) H 03/12/25 00:46 Delta Troponin T -3.65 ABS# (0-10) L 03/12/25 00:46 C-Reactive Protein 29.0 mg/L (0.0-4.9) H 03/11/25 21:54 NT-Pro-B Natriuret Pep 335 pg/mL (0-125) H 03/12/25 00:46 Total Protein 6.3 g/dL (6.6-8.7) L 03/11/25 21:54 Albumin 3.5 g/dL (3.5-5.2) 03/11/25 21:54 Globulin 2.8 g/dL (1.3-4.6) 03/11/25 21:54 Urine Color Yellow (Yellow) 03/11/25 23:40 Urine Appearance Clear (CLEAR) 03/11/25 23:40 Urine pH 5.0 (5-7) 03/11/25 23:40 Ur Specific [place] 1.008 (1.005-1.030) 03/11/25 23:40 Urine Protein Negative (Negative) 03/11/25 23:40 Urine Glucose (UA) Negative (Normal) 03/11/25 23:40 Urine Ketones Negative (Negative) 03/11/25 23:40 Urine Blood Negative (Negative) 03/11/25 23:40 Urine Nitrate Negative (Negative) 03/11/25 23:40 Urine Bilirubin Negative (Negative) 03/11/25 23:40 Urine Urobilinogen 0.2 mg/dL (Negative) 03/11/25 23:40 Ur Leukocyte Esterase Negative (Negative) 03/11/25 23:40 Urine RBC 0-2 /hpf (0-2) 03/11/25 23:40 Urine WBC 0-5 /hpf (0-5) 03/11/25 23:40 Ur Squamous Epith Cells 0-5 /hpf (0-5) 03/11/25 23:40 Amorphous Sediment Not Reportable 03/11/25 23:40 Urine Bacteria None seen /hpf (NONE) 03/11/25 23:40 Hyaline Casts 9.51 /lpf 03/11/25 23:40 All radiology interpretation(s) finalized by discharge Discharge Plan Discharge Patient Disposition: Admitted As Inpatient Clinical Impression: Acute renal failure, Elevated troponin, Confusion Condition: Stable Coding Level of Care Code ED Banquet Director for Keara Dudley
--- NOTE | 2025-03-11 21:58 | ECG_ITS ---
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 Measurements Intervals [place] Rate: 63 P: -82 [place]: 143 QRS: -25 QRSD: 108 T: 33 QT: 444 QTc: 457 Interpretive Statements ECTOPIC ATRIAL RHYTHM WITH FREQUENT SUPRAVENTRICULAR PREMATURE COMPLEXES BORDERLINE LEFT AXIS DEVIATION [QRS AXIS < -20] MINIMAL VOLTAGE CRITERIA FOR LVH, CONSIDER NORMAL VARIANT [MEETS CRITERIA IN ONE OF: R(aVL), S(V1), R(V5), R(V5/V6)+S(V1)] Compared to ECG 08/03/2023 12:26:48 ST (T wave) deviation no longer present Electronically Signed On 03-15-2025 11:45:02 CDT by Tray Lim M.D. [id number]
[2025-03-11 22:02] LABS: Basophils # 0.1 10^3/uL (0.0-0.1); Basophils % 1.1 %; Eosinophils # 0.2 10^3/uL (0.0-0.8); Eosinophils % 4.2 %; Hematocrit 35.9 % (36-47); Lymphocytes # 1.5 10^3/uL (0.8-4.8); Lymphocytes % 33.8 %; Mean Corpuscular HGB Conc 32.3 g/dL (30-55); Mean Corpuscular Hemoglobin 30.7 pg (27-33); Mean Platelet Volume 10.4 fL (7.4-10.4); Monocytes # 0.6 10^3/uL (0.2-0.9); Monocytes % 12.6 %; Neutrophils # 2.18 10^3/uL (1.8-7.7); Neutrophils % 48.1 %; Nucleated Red Blood Cells % 0 %; Platelet Count 209 10^3/cmm (157-399); Red Blood Count 3.78 10^6/uL (3.85-5.65); Red Cell Distribution Width 12.5 % (12.1-15.1); White Blood Count 4.53 10^3/uL (3.29-11.43)
[2025-03-11 22:09] VITALS: BP 89/54; PULSE 64; RESP 16; O2SAT 100
[2025-03-11 22:17] LABS: Troponin(5th) Baseline 42 ng/L (0-10)
[2025-03-11 22:18] LABS: Alanine Aminotransferase < 5 U/L (0-33); Albumin Level 3.5 g/dL (3.5-5.2); Alkaline Phosphatase 98 U/L (35-105); Blood Urea Nitrogen 48 mg/dL (8-23); Carbon Dioxide 24 mmol/L (22-29); Chloride 95 mmol/L (98-107); Globulin 2.8 g/dL (1.3-4.6); Glucose 95 mg/dL (65-115); Osmolality Calculated 296 mOsm/kg (285-295); Sodium 137 mmol/L (136-145); Total Bilirubin 0.4 mg/dL (0.15-1.2); Total Protein 6.3 g/dL (6.6-8.7)
[2025-03-11] MEDS: sodium chloride 0.9% 500 ML IV (22:28)
[2025-03-11 22:37] LABS: Anion Gap 21.6 (5-19); Aspartate Amino Transferase 12 U/L (0-32); Potassium 3.6 mmol/L (3.5-5.1)
[2025-03-11 23:04] VITALS: BP 80/57; PULSE 58; RESP 16; O2SAT 96
[2025-03-11] MEDS: SODIUM CHLORIDE 0.9% 1864.26 ML IV (23:34)
[2025-03-11] MEDS: cefTRIAXone 1,000 mg SDV 1000 MG IVP (23:35)
[2025-03-11 23:46] LABS: Bilirubin Urine Negative (Negative); Blood Urine Negative (Negative); Glucose Urine UA Negative (Normal); Ketones Urine Negative (Negative); Leukocyte Esterase Urine Negative (Negative); Nitrate Urine Negative (Negative); Protein Urine Negative (Negative); Specific Gravity, Urine 1.008 (1.005-1.030); Urine Appearance Clear (CLEAR); Urine Color Yellow (Yellow); Urobilinogen Urine 0.2 mg/dL (Negative)
[2025-03-11 23:51] LABS: Add Urine Microscopic? YES; Bacteria Urine None Seen /hpf; Hyaline Casts Urine 9.51 /lpf; RBC Urine 0-2 /hpf (0-2); Squamous Epithelial Cell Urine 0-5 /hpf (0-5); WBC Urine 0-5 /hpf (0-5)
[2025-03-12] VITALS (9 sets, daily range): BP systolic 112–186; BP diastolic 48–82; PULSE 53–108; RESP 16–25; TEMP 36.2–36.5; O2SAT 92–99
[2025-03-12 01:12] LABS: Lactic Sepsis W/Reflex 1.1 mmol/L (0.5-2.2); Troponin 5 2HR 38.35 ng/L (0-10)
[2025-03-12 01:19] LABS: NT Pro B Type Natriuretic Pept 335 pg/mL (0-125)
[2025-03-12 01:21] LABS: Troponin 5 2HR Delta -3.65 ABS# (0-10)
[2025-03-12] MEDS: heparin 5,000 unit/mL INJ 1 mL IVP (02:51)
[2025-03-12] MEDS: heparin drip 25,000 UNIT/500 ML PREMIX 17 UNIT IV (02:53)
--- NOTE | 2025-03-12 05:16 | ECG_ITS ---
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
--- NOTE | 2025-03-12 05:18 | PM.HP ---
Providers/Chief Complaint Admitting Physician: Vern Montgomery MD Primary Care Provider: Joshua Hernandez MD Chief Complaint: Confused History of Present Illness Elisabet Cook is a 74 year old female noted to have altered mental status by her . Patient had word finding difficulty and confusion. He was afraid she might of had a stroke but no prior history of strokes or heart attacks. She is on chronic diuretics and last echo was 02/17/2025 showed normal LV function and size with EF 60% and grade 2/4 diastolic dysfunction IVC and right atrial pressure were normal. Patient at this time declines to be interviewed and says she is trying to go to sleep. She was found to have acute kidney injury in the emergency department Review of Systems Narrative: Unobtainable. The patient's speech is not intelligible beyond sleep Medications/Allergies Home Medications ?Medication ?Instructions ?Recorded ?Confirmed ?Last Taken ?Type folic acid 1 mg tablet 1 mg PO DAILY #90 tabs 10/19/24 02/16/25 12/06/24 Rx carvedilol 6.25 mg tablet 6.25 mg PO BID #180 tabs 02/10/25 02/16/25 Unknown Rx furosemide 40 mg tablet 40 mg PO DAILY #90 tabs 02/10/25 02/16/25 Unknown Rx hydrochlorothiazide 12.5 mg tablet 12.5 mg PO QAM #90 tabs 02/10/25 02/16/25 Unknown Rx lisinopril 40 mg tablet 40 mg PO DAILY blood pressure #90 02/10/25 02/16/25 Unknown Rx tabs potassium chloride 10 mEq 10 meq PO DAILY #90 tabs 02/10/25 02/16/25 Unknown Rx tablet,extended release (Klor-Con) pravastatin 40 mg tablet 40 mg PO BEDTIME #90 tabs 02/10/25 02/16/25 Unknown Rx leflunomide 20 mg tablet 20 mg PO QAM #90 tabs 02/16/25 02/16/25 Unknown Rx prednisone 20 mg tablet See Rx Instructions PO .COMPLEX 02/16/25 02/16/25 Unknown Rx PRN joint pain flare #30 tabs tramadol 50 mg tablet 50 mg PO BID PRN pain (scale score 02/16/25 02/16/25 Unknown Rx 7-10) #14 tabs tramadol 50 mg tablet 50 mg PO BID PRN pain (scale score 02/16/25 02/16/25 Unknown Rx 7-10) #60 tabs Allergies Allergy/AdvReac Type Severity Reaction Status Date / Time Penicillins Allergy Unknown rash Verified 02/16/25 11:06 Sulfa (Sulfonamide Allergy Unknown Unknown Verified 02/16/25 11:06 Antibiotics) bacitracin (From Neosporin Allergy rash,swelli Verified 02/16/25 11:06 ([id number])) ng,itching neomycin (From Neosporin Allergy rash,swelli Verified 02/16/25 11:06 ([id number])) ng,itching polymyxin B (From Neosporin Allergy rash,swelli Verified 02/16/25 11:06 ([id number])) ng,itching PFSH Acute PFSH: Medical History Muscle cramps Diverticulosis Hiatal hernia Gastritis and duodenitis Encounter for screening colonoscopy Sinusitis, acute Spondylolisthesis, lumbar region Spondylolisthesis of cervical region Displacement of lumbar disc with radiculopathy Stenosis of cervical spine with myelopathy Osteopenia Crossover toe deformity of right foot Immunization counseling High risk medication use Cervical disc disorder with myelopathy of mid-cervical region Lumbar stenosis with neurogenic claudication Intervertebral disc disorder with radiculopathy of lumbosacral region Immunosuppression Osteopenia 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 Seropositive rheumatoid arthritis of multiple joints Surgical History History of bilateral knee arthroplasty Family History Mother Cancer Denies family history of Diabetes Dementia Social History Smoking and tobacco/nicotine status: never used tobacco/nicotine Alcohol intake: former Former alcohol use details: Use to be on new year's david only Substance/Drug Use: never Household members: spouse Marital status: Current occupational status: retired Vitals/I&O/Wt Last Vital Signs Temp 97.4 F L 03/12/25 04:14 Pulse 98 03/12/25 04:14 Resp 25 H 03/12/25 04:14 BP 145/82 03/12/25 04:14 Pulse Ox 99 03/12/25 04:14 O2 Del Method Room Air 03/12/25 04:14 03/11/25 03/11/25 03/12/25 14:59 22:59 06:59 Intake Total 0 / 0 2364.26 / 2364.26 Balance 0 / 0 2364.26 / 2364.26 Weight last 48 hrs Weight 64.002 kg Weight 62.142 kg Physical Exam Narrative: General Well-developed well-nourished female no acute cardiopulmonary distress she is laying on her left side moves all extremities CV regular rate and rhythm difficult exam Lungs clear to auscultation bilaterally Abdomen soft Calves no edema Urinary Catheter Management: Eddy: Cath Placed During This Visit: yes Urinary Catheter Date of Insertion: 03/11/25 Urinary Catheter Time of Insertion: 23:29 Data 03/11/25 21:54 03/11/25 21:54 Micro: Microbiology 03/11/25 23:30 Blood Culture - Preliminary Blood SPECIMEN COLLECTED 03/11/25 23:26 Blood Culture - Preliminary Blood SPECIMEN COLLECTED A&P Assessment and plan (1) Acute renal failure: Hydrate and recheck labs. She is due for labs now including BMP mag Phos and troponin (2) Elevated troponin: Troponin is rechecked now. She was hypotensive but blood pressures coming up now post fluid boluses (3) Hypertension: Stable was hypotensive on admission but blood pressure coming up (4) Altered mental status: Suspicious for metabolic encephalopathy or drug induced will check urine drug screen she is not febrile or hypoxemic to suggest viral respiratory illness. Looks like she is on intermittent prednisone for rheumatoid arthritis not covered by leflunomide. She is also on tramadol for pain PDMP PDMP Reviewed: Not Reviewed Attestations Medical Necessity Statement*: Patient will remain in the hospital for anticipated greater than 2 midnights due to acute acute kidney injury Coding Level of Care Code Acute Code for [facility] Diagnoses Acute renal failure N17.9 Acute renal failure type: unspecified Elevated troponin R79.89 Hypertension I10 Altered mental status R41.82 Time Spent (min) 50
[2025-03-12] MEDS: sodium chlor 0.9% + KCl 20 mEq 20 MEQ/1,000 ML BAG 150 MEQ IV (05:59)
[2025-03-12] MEDS: haloperidol inj 5 mg/mL INJ 1 mL IVP ×2 (05:59→06:29)
--- NOTE | 2025-03-12 06:20 | ECG_ITS ---
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1950 Requested By: Ronny Fenton Order Number: [id number] Reading MD: ROYCE VAIL Measurements Intervals [place] Rate: 79 P: 84 [place]: 91 QRS: -52 QRSD: 93 T: -90 QT: 383 QTc: 439 Interpretive Statements SINUS RHYTHM WITH SHORT [place] INTERVAL WITH OCCASIONAL ECTOPIC PREMATURE COMPLEXES INDETERMINATE AXIS LOW QRS VOLTAGE IN PRECORDIAL LEADS [QRS DEFLECTION < 1.0 mV IN CHEST LEADS] INFERIOR MYOCARDIAL INFARCTION , OF INDETERMINATE AGE [40+ ms Q WAVE AND/OR ST/T ABNORMALITY IN II/aVF] Compared to ECG 03/11/2025 21:58:45 Short [place] interval now present Indeterminate axis now present Low QRS voltage now present Myocardial infarct finding now present Ectopic atrial rhythm no longer present Electronically Signed On 03-16-2025 23:01:06 CDT by ROYCE VAIL [email or web address] [id number]
[2025-03-12] MEDS: LORazepam 2 mg/mL INJ 1 mL 1 MG IVP (07:22)
[2025-03-12 09:14] LABS: Amphetamines Screen Urine Negative (Negative); Barbiturates Screen Urine Negative (Negative); Benzodiazepines Screen Urine Negative (Negative); Cocaine Screen Urine Negative (Negative); Opiate Screen Urine Negative (Negative); PCP Screen Urine Negative (Negative); THC Screen Urine Negative (Negative)
[2025-03-12 09:22] LABS: Basophils % 0.7 %; Eosinophils % 0.7 %; Hematocrit 36.9 % (36-47); Lymphocytes # 0.6 10^3/uL (0.8-4.8); Lymphocytes % 10.4 %; Mean Corpuscular HGB Conc 29.5 g/dL (30-55); Mean Corpuscular Hemoglobin 30.7 pg (27-33); Mean Corpuscular Volume 103.9 fl (85-98); Mean Platelet Volume 10.4 fL (7.4-10.4); Monocytes # 0.4 10^3/uL (0.2-0.9); Monocytes % 7.9 %; Neutrophils # 4.45 10^3/uL (1.8-7.7); Neutrophils % 80.1 %; Nucleated Red Blood Cells % 0 %; Platelet Count 145 10^3/cmm (157-399); Red Blood Count 3.55 10^6/uL (3.85-5.65); Red Cell Distribution Width 12.3 % (12.1-15.1); White Blood Count 5.56 10^3/uL (3.29-11.43)
[2025-03-12 09:35] LABS: Partial Thromboplastin Time 67.8 SECONDS (23.9-36.7)
[2025-03-12 09:38] LABS: Troponin 5 6HR 57.15 ng/L (0-10)
[2025-03-12 09:48] LABS: Troponin 5 6HR Delta 15 ng/L (0-12)
[2025-03-12 09:57] LABS: Anion Gap 18.6 (5-19); Blood Urea Nitrogen 38 mg/dL (8-23); Calcium 8.4 mg/dL (8.5-10.5); Carbon Dioxide 17 mmol/L (22-29); Chloride 105 mmol/L (98-107); Creatinine Clr Calc Pharmacy 23.5182; Glucose 98 mg/dL (65-115); Magnesium 1.6 mg/dL (1.7-2.3); Osmolality Calculated 293 mOsm/kg (285-295); Phosphorus 2.9 mg/dL (2.5-4.5); Potassium 3.6 mmol/L (3.5-5.1); Sodium 137 mmol/L (136-145); Thyroid Stimulating Hormone 1.11 uIU/mL (0.27-4.20)
--- NOTE | 2025-03-12 10:11 | USCV_ITS ---
Elisabet Cook Age: 74 Gender: F : 1950 Exam Date: 03/12/2025 14:43 Ordering Phys: Israel Stroud MD Technologist: WILIAM Exam Location: [facility] [place] Indication: nstemi BP: 117 / 66 HR: 56 Rhythm: Sinus Technical Quality: Adequate MEASUREMENTS (Male / Female) Normal Values 2D ECHO LV Diastolic Diameter PLAX 5.1 cm 4.2 - 5.9 / 3.9 - 5.3 cm IVS Diastolic Thickness 1.0 cm 0.6 - 1.0 / 0.6 - 0.9 cm IVS Systolic Thickness 1.3 cm LVPW Diastolic Thickness 1.4 cm 0.6 - 1.0 / 0.6 - 0.9 cm LVPW Systolic Thickness 2.0 cm LVOT Diameter 2.0 cm LV Ejection Fraction 2D Teich 69.8 % LV Ejection Fraction MOD 4C 67.7 % LV Ejection Fraction MOD 2C 56.2 % LV Ejection Fraction 2C AL 59.0 % LA Diameter 4.1 cm RA Systolic Volume 4C AL 36.8 ml RA Systolic Volume 4C MOD 37.6 ml LA Sys Volume AL 36.8 cm cubed LA Sys Volume Index AL 21.6 cm cubed/m squared Aorta at Sinotubular Diameter 2.1 cm IVC Diameter 1.7 cm M-MODE LA Ao Ratio MM 2.0 AV Cusp Separation MM 1.5 cm DOPPLER AV Peak Velocity 172.0 cm/s LVOT Peak Velocity 132.0 cm/s AV Area Cont Eq vti 2.6 cm squared AV Area Cont Eq pk 2.4 cm squared MV Peak Velocity 96.0 cm/s MV Area PHT 5.0 cm squared Mitral E to A Ratio 0.8 TV Peak Velocity 345.0 cm/s TR Peak Velocity 489.0 cm/s TR Peak Gradient 95.6 mmHg TR Mean Velocity 380.0 cm/s TR Mean Gradient 64.6 mmHg TR Velocity Time Integral 155.7 cm PV Peak Velocity 111.0 cm/s RV Ejection Time 0.3 s FINDINGS Left Ventricle Left ventricle is normal in size. LV systolic function is normal with EF of 55-60%. No regional wall motion abnormalities. Grade 1 diastolic dysfunction Right Ventricle Normal in size and function Right Atrium Normal in size Left Atrium Normal in size Mitral Valve Mild mitral annular calcification. Mild mitral regurgitation. Aortic Valve Aortic valve is thickened. Mild aortic regurgitation. No significant stenosis. Tricuspid Valve Insufficient TR jet to calculate RVSP Pulmonic Valve Not well visualized Pericardium Normal Aorta Normal in size IVC Appears to be normal CONCLUSIONS LV systolic function is normal with EF of 55-60% Grade 1 diastolic dysfunction Mild mitral regurgitation Mild aortic regurgitation Compared to prior echocardiogram from 02/2025 no significant changes are seen. Tray Lim MD (Electronically Signed) Final Date: 13 March 2025 11:13 S
[2025-03-12 10:29] LABS: D Dimer 1.22 ug/mLFEU (0-0.59)
[2025-03-12 10:35] LABS: Estmated Average Glucose 117; Hemoglobin A1C 5.7 % (4.0-6.0)
[2025-03-12 10:53] LABS: Procalcitonin 0.16 ng/mL (0-0.5); Vitamin B12 261 pg/mL (232-1245)
[2025-03-12 11:04] LABS: Iron 55 ug/dL (37-145); Percent Saturation 35.7 % (20-50); Total Iron Binding Capacity 154 mcg/dl; Unsaturated Iron Binding 99 ug/dL (112-347)
--- NOTE | 2025-03-12 11:34 | PC.CHAP ---
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 emergency nurse visit [] Patient/Family/Request visit [] Outpatient visit [] Follow-up visit [] Physician referral [] Code/Alert [] Routine visit [] Staff referral [] Actively dying [] Patient sleeping [] Family support [] [] Out of room [] Palliative care [] [X] Receiving care in room [] Pre-surgical visit [] Trauma [] Long length of stay [] ICU visit [] Other: Relational/Emotional Strength [] Patient feels connected with others/family/visitors/staff [] Distress [] Loneliness/isolation [] Abandonment Spirituality of Patient [] Person of Zoila [] Attends Quaker of their Zoila [] Believes in Prayer [] Reads Bible or Islam materials [] There are Spiritual issues to be addressed Sand Operator Interventions [] Prayer [] Active listening [] Non-anxious presence [] Spiritual/emotional support [] Crisis/trauma care [] Spiritual counseling [] Bereavement support [] Provided bereavement packet [] Provided Bible/devotional materials [] Provided toy/stuffed animal, coloring book to patient or family member [] Provided Communion [] Anointing/[place] [] Salvation [] Completed spiritual assessment [] Other: Impact on Illness or Injury [] Angry [] Fearful [] Anxious [] Often cries [] Exhaustion [] Unable to work [] Unable to attend zoroastrianism [] Unable to walk/stand [] Unable to read [] Unable to drive [] Unable to eat/drink [] Unable to sleep [] Unable to be with family [] Patient intubated [] Other: Summary Time spent with patient
--- NOTE | 2025-03-12 11:36 | PC.PHAR ---
I called and donna lemon picker dates with the [facility] . Pharmacy stated patient never picked up the tramadol . They have two prescriptions on hold for tramadol, one is a 7 day trial then a 30days when finished with the 7day. I also spoke to Patients spouse and He is going to bring in Patients bottles and I will go up after 1pm to verify .
[2025-03-12] MEDS: magnesium sulfate premix 1 GM/100 ML PIGGYBACK IV (11:39)
[2025-03-12] MEDS: aspirin 300 mg Supp PR (11:40)
[2025-03-12] MEDS: sodium chloride 0.9% 1,000 ML 75 ML IV (11:40)
--- NOTE | 2025-03-12 12:17 | MRR_ITS ---
PROCEDURE INFORMATION: Exam: MR Head Without Contrast Exam date and time: 03/12/2025 1:40 PM Age: 74 years old Clinical indication: Altered mental status/memory loss; Confusion or disorientation; Extremely confused and unable to follow instructions, ; additional info: AMS, concern for stroke TECHNIQUE: Imaging protocol: Magnetic resonance imaging of the head without contrast. COMPARISON: CT head wo con* [id number] 03/11/2025 9:42 PM FINDINGS: Brain: There is nonspecific increased T2/FLAIR hyperintensities in the periventricular and subcortical deep white matter likely on the basis of chronic microvascular ischemic changes. Age-related brain parenchymal atrophy. No mass effect or midline shift. Cerebral ventricles: Normal. No ventriculomegaly. Bones: Unremarkable. Paranasal sinuses: Normal as visualized. No acute sinusitis. Mastoid air cells: Normal as visualized. No mastoid effusion. Orbital cavities: Unremarkable. Soft tissues: Unremarkable. MR/MR head wo con* [id number] IMPRESSION: Limited examination due to motion artifact. However no acute intracranial process. Senescent changes.
--- NOTE | 2025-03-12 13:52 | P.PN_ITS ---
Subjective 2 Subjective: Admitted earlier today morning. Seen with at bedside. Patient on admission seem to be in some agitation and received Haldol. Currently on examination she is somnolent, wincing to painful stimulus. Blood pressure is elevated. Heart rate running in mid 50s. As per the patient was at her baseline mentation with dementia until yesterday afternoon and all of a sudden became altered and confused. At baseline as per the she is able to take care of some of her ADLs but does have episodes of confusions. Vitals/I&O/Wt Last Vital Signs Temp 97.2 F L 03/12/25 12:00 Pulse 53 L 03/12/25 12:00 Resp 16 03/12/25 12:00 BP 117/66 03/12/25 12:00 Pulse Ox 93 03/12/25 12:00 O2 Del Method Room Air 03/12/25 12:00 03/11/25 03/12/25 03/12/25 22:59 06:59 14:59 Intake Total 0 / 0 2364.26 / 2364.26 118.15 / 118.15 Output Total 950 / 950 Balance 0 / 0 1414.26 / 1414.26 118.15 / 118.15 Weight last 48 hrs Weight 64.773 kg Weight 64.002 kg Weight 62.142 kg Physical Exam 2 Narrative: General Well-developed well-nourished female no acute cardiopulmonary , somnolent after getting haldol at 6 am CV regular rate and rhythm difficult exam Lungs clear to auscultation bilaterally Abdomen soft Calves no edema Urinary Catheter Management: Eddy: Cath Placed During This Visit: yes Reason for Continuing Indwelling Catheter: Other Urinary Catheter Date of Insertion: 03/11/25 Urinary Catheter Time of Insertion: 23:29 Data 03/12/25 09:03 03/12/25 16:18 Micro: Microbiology 03/11/25 23:30 Blood Culture - Preliminary Blood SPECIMEN COLLECTED 03/11/25 23:26 Blood Culture - Preliminary Blood SPECIMEN COLLECTED A&P Assessment and plan (1) Acute renal failure: Baseline creatinine normal. Recently started on diuretics along with hydrochlorothiazide. Also takes leflunomide and lisinopril at home. Creatinine up to 2.6 on admission. Medical reconciliation done for nephrotoxic drugs. Continue with IV hydration with NS at 75 cc/h. Repeat BMP in afternoon. Monitor for electrolytes and acidosis. (2) Elevated troponin: Baseline troponin of 38 with delta of 15 and 6 hours. Cannot be sure if patient has chest pain. Check echocardiogram. Not sure if this is related to NSTEMI versus demand ischemia. For now start patient on heparin drip. Rectal aspirin 300 mg daily. Check A1c, lipid panel. (3) Hypertension: Goal blood pressure less than 140/90 emergency. Takes lisinopril and hydrochlorothiazide at home. Along with Coreg. Blood pressures elevated currently. IV hydralazine 10 mg every 6 hour as needed for systolic of more than 160 mmHg. If blood pressures remain elevated can plan to add clonidine. (4) Altered mental status: Suspicious for metabolic encephalopathy or drug induced. Urine drug screen appreciated. Not hypoxemic to suggest viral respiratory illness. Looks like she is on intermittent prednisone for rheumatoid arthritis not covered by leflunomide. She is also on tramadol for pain. Continue to monitor. Haldol 1 mg every 4 hours as needed for agitation. Appreciate CT head on admission. MRI brain. (5) Dementia: Plan NPO. Currently patient is extremely somnolent. If mentation improves can start on diet. Heparin will be sufficient for DVT prophylaxis Famotidine for PUD prophylaxis PDMP PDMP Reviewed: Not Reviewed Attestations 2 Medical Necessity Statement*: Requires further hospitalization for management of altered mental status, non-ST elevation RI in a patient with history of rheumatoid arthritis, hypertension, dementia Other Coding Information Prolonged care (total time indicated above or notated here) Treatment for new non-ST elevation RI, gathering history, assessing somnolence which is new since admission Diagnoses Acute renal failure N17.9 Acute renal failure type: unspecified Elevated troponin R79.89 Hypertension I10 Altered mental status R41.82 Dementia F03.90
[2025-03-12 16:08] LABS: Partial Thromboplastin Time 35.1 SECONDS (23.9-36.7)
[2025-03-12 16:48] LABS: Blood Urea Nitrogen 33 mg/dL (8-23); Calcium 8.6 mg/dL (8.5-10.5); Carbon Dioxide 22 mmol/L (22-29); Chloride 108 mmol/L (98-107); Creatinine Clr Calc Pharmacy 31.9176; Glucose 87 mg/dL (65-115); Osmolality Calculated 299 mOsm/kg (285-295); Sodium 141 mmol/L (136-145)
[2025-03-12] MEDS: famotidine 20 mg/2 mL INJ IVP (18:10)
[2025-03-12] MEDS: atorvastatin 40 mg Tablet 80 MG PO (19:41)
--- NOTE | 2025-03-12 19:53 | ECG_ITS ---
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1950 Requested By: Israel Stroud Order Number: [id number] Reading MD: ROYCE VAIL Measurements Intervals [place] Rate: 47 P: -88 ME: 154 QRS: -18 QRSD: 84 T: 12 QT: 483 QTc: 431 Interpretive Statements ECTOPIC ATRIAL BRADYCARDIA WITH OCCASIONAL SUPRAVENTRICULAR PREMATURE COMPLEXES POSSIBLE ANTERIOR MYOCARDIAL INFARCTION , PROBABLY OLD [30 ms Q WAVE IN V3/V4, OR R < 0.2 mV IN V4] ABNORMAL RHYTHM ECG Compared to ECG 03/12/2025 06:20:54 Bradycardia, nonsinus now present Sinus rhythm no longer present Short ME interval no longer present Indeterminate axis no longer present Myocardial infarct finding still present Electronically Signed On 03-16-2025 23:01:38 CDT by ROYCE VAIL [email or web address]
[2025-03-12 23:20] LABS: Blood Urea Nitrogen 27 mg/dL (8-23); Calcium 8.6 mg/dL (8.5-10.5); Carbon Dioxide 19 mmol/L (22-29); Chloride 108 mmol/L (98-107); Creatinine Clr Calc Pharmacy 44.6846; Glucose 74 mg/dL (65-115); Magnesium 1.9 mg/dL (1.7-2.3); Osmolality Calculated 296 mOsm/kg (285-295); Sodium 141 mmol/L (136-145)
[2025-03-12 23:21] LABS: Partial Thromboplastin Time 78.1 SECONDS (23.9-36.7)
[2025-03-12 23:27] LABS: Anion Gap 17.7 (5-19); Potassium 3.7 mmol/L (3.5-5.1)
[2025-03-13] MEDS: sodium chloride 0.9% 1,000 ML 75 ML IV (02:16)
[2025-03-13 04:00] VITALS: BP 143/73; PULSE 61; RESP 19; TEMP 36.4; O2SAT 97
[2025-03-13] MEDS: famotidine 20 mg/2 mL INJ IVP ×2 (05:34→19:51)
[2025-03-13] MEDS: heparin drip 25,000 UNIT/500 ML PREMIX 18 UNIT IV (05:36)
[2025-03-13 06:00] VITALS: PULSE 49
[2025-03-13 06:33] LABS: Basophils # 0.1 10^3/uL (0.0-0.1); Basophils % 1.1 %; Eosinophils # 0.2 10^3/uL (0.0-0.8); Eosinophils % 3.9 %; Hematocrit 32.9 % (36-47); Lymphocytes # 1.1 10^3/uL (0.8-4.8); Lymphocytes % 24.1 %; Mean Corpuscular HGB Conc 31.3 g/dL (30-55); Mean Corpuscular Hemoglobin 30.2 pg (27-33); Mean Corpuscular Volume 96.5 fl (85-98); Mean Platelet Volume 10.1 fL (7.4-10.4); Monocytes # 0.6 10^3/uL (0.2-0.9); Neutrophils % 58.7 %; Nucleated Red Blood Cells % 0 %; Platelet Count 177 10^3/cmm (157-399); Red Blood Count 3.41 10^6/uL (3.85-5.65); Red Cell Distribution Width 12.7 % (12.1-15.1)
[2025-03-13 06:52] LABS: Ammonia 13 umol/L (11-51)
[2025-03-13 06:54] LABS: Alanine Aminotransferase < 5 U/L (0-33); Albumin Level 2.7 g/dL (3.5-5.2); Alkaline Phosphatase 80 U/L (35-105); Aspartate Amino Transferase 11 U/L (0-32); Blood Urea Nitrogen 22 mg/dL (8-23); Calcium 8.6 mg/dL (8.5-10.5); Carbon Dioxide 22 mmol/L (22-29); Creatinine Clr Calc Pharmacy 54.9367; Globulin 2.8 g/dL (1.3-4.6); Glucose 75 mg/dL (65-115); Total Bilirubin 0.4 mg/dL (0.15-1.2); Total Protein 5.5 g/dL (6.6-8.7)
[2025-03-13 06:58] LABS: Partial Thromboplastin Time 147.1 SECONDS (23.9-36.7)
[2025-03-13 07:11] LABS: Anion Gap 13.4 (5-19); Chloride 109 mmol/L (98-107); Osmolality Calculated 294 mOsm/kg (285-295); Potassium 3.4 mmol/L (3.5-5.1); Sodium 141 mmol/L (136-145)
[2025-03-13 07:50] LABS: Chol HDL Ratio 3.97 mg/dL (0.0-4.40); Cholesterol 135 mg/dL (0-200); HDL Cholesterol 34 mg/dL (60-100); LDL Cholesterol Calculated 76 mg/dL (50-129); Magnesium 1.8 mg/dL (1.7-2.3); Triglycerides 125 mg/dL (0-150); VLDL Cholestrol Calculation 25 mg/dL (0-30)
[2025-03-13 08:00] VITALS: BP 148/62; PULSE 54; RESP 22; TEMP 36.2; O2SAT 97
[2025-03-13 09:12] LABS: Folate Level 14.1 ng/mL (4.8-37.3)
[2025-03-13 10:55] LABS: Troponin T (5th) Once 40 ng/L (0-10)
[2025-03-13] MEDS: aspirin 81 mg EC Tablet PO (11:17)
[2025-03-13] MEDS: amlodipine 5 mg Tablet PO (11:17)
[2025-03-13] MEDS: lidocaine 1% 5 ML in potassium chloride premix 100 ML 26.25 ML IV ×2 (11:18→15:40)
[2025-03-13 12:00] VITALS: BP 116/63; PULSE 97; RESP 20; TEMP 36.4; O2SAT 94
--- NOTE | 2025-03-13 12:45 | PM.PN ---
Subjective Subjective: Overnight patient has had episodes of bradycardia with heart rate running down to high 40s to low 50s. Currently patient is awake and alert with heart rate running in mid 60s. Patient is more coherent. Able to answer and follow directions. Sitter at bedside. Vitals/I&O/Wt Last Vital Signs Temp 97.2 F L 03/13/25 08:00 Pulse 54 L 03/13/25 08:00 Resp 22 H 03/13/25 08:00 BP 148/62 03/13/25 08:00 Pulse Ox 97 03/13/25 08:00 O2 Del Method Room Air 03/13/25 08:00 03/12/25 03/13/25 03/13/25 22:59 06:59 14:59 Intake Total 1214.183 / 7090.509 6954.833 / 2575.166 25.2 .2 Output Total 1650 / 1650 600 / 2250 Balance -435.817 / -317.667 642.833 / 325.166 25.2 .2 Weight last 48 hrs Weight 62.414 kg Weight 64.773 kg Weight 64.002 kg Weight 62.142 kg Physical Exam Narrative: General: AO x 3, no acute distress, alert to self, being in hospital, date of Cardiac: S1-S2 regular with occasional irregularity, no tachycardia, soft pansystolic murmur at apex Lungs clear to auscultation bilaterally Abdomen soft Calves no edema Urinary Catheter Management: Eddy: Cath Placed During This Visit: yes Reason for Continuing Indwelling Catheter: Accurate Measurement of Urinary Output in Critically Ill Patients Urinary Catheter Date of Insertion: 03/11/25 Urinary Catheter Time of Insertion: 23:29 Data 03/13/25 06:22 03/13/25 06:22 Micro: Microbiology 03/11/25 23:30 Blood Culture - Preliminary Blood NEGATIVE TO DATE 03/11/25 23:26 Blood Culture - Preliminary Blood NEGATIVE TO DATE A&P Assessment and plan (1) Acute renal failure: Baseline creatinine normal. Recently started on diuretics along with hydrochlorothiazide. Also takes leflunomide and lisinopril at home. Creatinine normal today. Medical reconciliation done for nephrotoxic drugs. Able to intake orally. Stop IV fluids. Repeat BMP in afternoon. Monitor for electrolytes and acidosis. (2) Bradycardia: Heart rate going down to high 40s. Concern for sinus ectopic atrial bradycardia Hold off on home dose of Coreg. Continue to monitor. If remains bradycardic for next 24 hours which would be 48-60 hours since last Coreg we will consult cardiology. For now continue to monitor. Telemetry. (3) Elevated troponin: Baseline troponin of 38 with delta of 15 and 6 hours. Add on troponin to morning labs. Denies any chest pain. High concerns for type II MA. Echocardiogram shows no regional wall motion abnormality with grade 1 diastolic dysfunction, EF of 260% with mild MR and AI. Stop heparin drip. Aspirin 81 mg daily, atorvastatin 20 mg daily. Appreciate A1c, lipid panel. (4) Hypertension: Goal blood pressure less than 140/90 mmHg. Takes lisinopril and hydrochlorothiazide at home. Along with Coreg. Blood pressures elevated currently. Add amlodipine 5 mg oral daily. Holding off on Coreg given significant bradycardia. No lisinopril given severe renal failure on admission. (5) Altered mental status: Resolved. Suspicious for metabolic encephalopathy or drug induced. Urine drug screen appreciated. Not hypoxemic to suggest viral respiratory illness. Looks like she is on intermittent prednisone for rheumatoid arthritis not covered by leflunomide. She is also on tramadol for pain. Continue to monitor. Haldol 1 mg every 4 hours as needed for agitation. Appreciate CT head on admission, MRI brain. (6) Dementia: Plan More awake and alert today. Start on mechanical soft diet. Heparin 5000 every 12 hourly for DVT prophylaxis Famotidine for PUD prophylaxis PDMP PDMP Reviewed: Not Reviewed Attestations Medical Necessity Statement*: Requires further hospitalization for management of altered mental status in setting of acute kidney injury, polypharmacy, bradycardia in a patient with baseline dementia Diagnoses Acute renal failure N17.9 Acute renal failure type: unspecified Bradycardia R00.1 Elevated troponin R79.89 Hypertension I10 Altered mental status R41.82 Dementia F03.90
[2025-03-13] MEDS: haloperidol inj 5 mg/mL INJ 1 mL 1 MG IM (16:11)
[2025-03-13 19:26] VITALS: BP 121/68; PULSE 76; RESP 25; TEMP 36.6; O2SAT 96
[2025-03-13] MEDS: atorvastatin 40 mg Tablet 20 MG PO (19:50)
[2025-03-13] MEDS: haloperidol inj 5 mg/mL INJ 1 mL IVP ×3 (21:10→22:08)
[2025-03-13 23:08] VITALS: BP 142/75; PULSE 90; RESP 20; O2SAT 95
[2025-03-14 03:24] VITALS: BP 138/59; PULSE 101; RESP 20; TEMP 36.4; O2SAT 94
[2025-03-14] MEDS: OLANZapine 5 mg ODT 10 MG PO (03:36)
[2025-03-14] MEDS: cloNIDine 0.3 mg/24 hr Patch 1 PATCH TRANSDERMA (05:59)
[2025-03-14] MEDS: heparin 5,000 unit/mL INJ 1 mL 5000 UNIT SUBCUT ×2 (06:20→18:04)
--- NOTE | 2025-03-14 07:56 | PC.SOCIAL ---
IMM Update Pg. 2 of IMM updated and copy provided at bedside.
[2025-03-14 08:00] VITALS: BP 111/60; PULSE 78; RESP 20; TEMP 36.3; O2SAT 95
[2025-03-14] MEDS: amlodipine 5 mg Tablet PO (08:27)
[2025-03-14] MEDS: aspirin 81 mg EC Tablet PO (08:27)
[2025-03-14] MEDS: famotidine 20 mg/2 mL INJ IVP (08:40)
[2025-03-14] MEDS: magnesium oxide 400 mg tablet PO ×2 (09:27→14:08)
[2025-03-14] MEDS: potassium chloride ER 20 mEq Tablet 40 MEQ PO (09:27)
[2025-03-14 09:31] LABS: Troponin T (5th) Once 44 ng/L (0-10)
--- NOTE | 2025-03-14 09:41 | PC.CHAP ---
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 [] Patient/Family/Request visit [] Outpatient visit [] Follow-up visit [] Physician referral [] Code/Alert [x] Routine visit [] Staff referral [] Actively dying [] Patient sleeping [] Family support [] [] Out of room [] Palliative care [] [] Receiving care in room [] Pre-surgical visit [] Trauma [] Long length of stay [] ICU visit [] Other: Relational/Emotional Strength [] Patient feels connected with others/family/visitors/staff [] Distress [] Loneliness/isolation [] Abandonment Spirituality of Patient [] Person of Zoila [] Attends Denominational of their Zoila [] Believes in Prayer [] Reads Bible or Gnosticism materials [] There are Spiritual issues to be addressed [place] Interventions [x] Prayer [] Active listening [] Non-anxious presence [] Spiritual/emotional support [] Crisis/trauma care [] Spiritual counseling [] Bereavement support [] Provided bereavement packet [] Provided Bible/devotional materials [] Provided toy/stuffed animal, coloring book to patient or family member [] Provided Communion [] Anointing/[place] [] Salvation [x] Completed spiritual assessment [] Other: Impact on Illness or Injury [] Angry [] Fearful [] Anxious [] Often cries [] Exhaustion [] Unable to work [] Unable to attend baptist [] Unable to walk/stand [] Unable to read [] Unable to drive [] Unable to eat/drink [] Unable to sleep [] Unable to be with family [] Patient intubated [] Other: Summary Time spent with patient 5 min
[2025-03-14 10:44] LABS: Magnesium 1.7 mg/dL (1.7-2.3)
[2025-03-14 12:00] VITALS: BP 139/89; PULSE 106; RESP 20; TEMP 36; O2SAT 94
[2025-03-14 16:00] VITALS: PULSE 122; RESP 20; TEMP 531.7; TEMP 989; O2SAT 93
[2025-03-14] MEDS: famotidine 20 mg Tablet PO (18:04)
--- NOTE | 2025-03-14 19:12 | P.PN_ITS ---
Subjective 2 Subjective: The patient was seen today. She was in bed, restless and picking at the bedsheets. She is alert to person, but not to place and time. Her is at the bedside, and states that at baseline, she has short-term memory loss. He would ask her to make him a sandwich, and she would go to the kitchen, and forget the type of sandwich that he asked her to make. She would ask him several times before she is able to make the sandwich. She is not is altered at home, as she currently appears. I did watch her leave the bathroom and use cane to walk to the bed steadily and without assistance. Overnight, she was agitated and was given Haldol. It was around that time, 3 AM in the morning, that her heart rate was recorded at 101bpm. Per nurse, patient has also been having multiple greenish, loose mucioid stools. Vitals/I&O/Wt Last Vital Signs Temp 989.0 F H 03/14/25 16:00 Pulse 122 H 03/14/25 16:00 Resp 20 H 03/14/25 16:00 BP 139/89 03/14/25 12:00 Pulse Ox 93 03/14/25 16:00 O2 Del Method Room Air 03/14/25 16:00 03/14/25 03/14/25 03/14/25 06:59 14:59 22:59 Intake Total 480 / 480 Output Total 250 / 850 Balance -250 / 1200.000 480 / 480 Weight last 48 hrs Weight 62.414 kg Physical Exam 2 Narrative: Constitutional: GENERAL APPEARANCE: cooperative, comfortable and appears older than stated age; not combative, not disheveled, not ill appearing and not frail appearing HENT: HEAD & SCALP: normocephalic and atraumatic; no Gustafson's sign, no laceration, no occipital foramen tenderness, no palpable skull fracture, no raccoon eyes, no scalp tenderness and no Temporal artery tenderness present NOSE: external nose not normal EXTERNAL EAR: no external ears normal MOUTH: Normal oral and palatal mucosa present THROAT: posterior oropharynx normal Eye: PERRL, EOMI, normal conjunctiva b/l Neck: normal visual inspection, trachea midline, No anterior neck swelling, No tracheal deviation, No tracheostomy present, no submandibular swelling, Thyroid normal, cervical ROM normal Lymph: no cervical, supraclavicular LAD Resp: no use of accessory muscles, CTAB, no w/r/r Cardio: RRR, no m/r/g, or clicks. 2+ radial and DP pulses. GI: normoactive bowel sounds, non-tender, non-distended, no guarding, no rigidity, no rebound tenderness, no hepatosplenomegaly. : Deferred Back/Pelvis: Deferred Extremity: No clubbing, No cyanosis and No edema Neuro: AO to person, place and time. CN normal except as noted. Normal gait present. 5/5 motor strength present throughout. Normal motor muscle tone present throughout. No tremor noted. No motor abnormalities present. No motor fasciculations present Psych: APPEARANCE: Yes grossly normal ATTITUDE: Yes calm and Yes engaged ACTIVITY/MOTOR BEHAVIOR: Yes appropriate eye contact SPEECH: Yes normal speech MOOD & AFFECT: Yes euthymic mood THOUGHT PROCESS: Normal thought process present THOUGHT CONTENT: Yes Normal thought content present ATTENTION/CONCENTRATION: Yes attention grossly intact MEMORY/COGNITION: Yes memory grossly intact Urinary Catheter Management: Eddy: Cath Placed During This Visit: yes, but has since been removed by the nurse Reason for Continuing Indwelling Catheter: Decision to DC Catheter Urinary Catheter Date of Insertion: 03/11/25 Urinary Catheter Time of Insertion: 23:29 Date Urinary Catheter Removed: 03/13/25 Time Urinary Catheter Discontinued: 23:56 Data 03/13/25 06:22 03/13/25 06:22 A&P Assessment and plan (1) Acute renal failure: (2) Bradycardia: (3) Elevated troponin: (4) Hypertension: (5) Altered mental status: (6) Dementia: Plan #Altered mental status: I believe that she is in #Delirium in the setting of possible Dementia - Suspicious for metabolic encephalopathy or drug induced. - Urine drug screen negative. - Not hypoxemic to suggest viral respiratory illness. Looks like she is on intermittent prednisone for rheumatoid arthritis not covered by leflunomide. She is also on tramadol for pain - hold for now. - Appreciate CT head on admission, MRI brain. # Hyperactive delirium - Continue sitter - Will start non-pharmacologic measures. OOB to chair daily. Keep awake during the day. Attempt sleep aids to help sleep at night. - Continue to monitor. Haldol 1 mg every 4 hours as needed for agitation. #Possible Dementia - Out patient evaluation #Diarrhea? - Ordered GI pathogen panel on 03/14. # Acute renal failure: Baseline creatinine normal. Recently started on diuretics along with hydrochlorothiazide. Also takes leflunomide and lisinopril at home. Creatinine normal today. Medical reconciliation done for nephrotoxic drugs. Able to intake orally. IVF d/c'ed Monitor for electrolytes and acidosis. - Replaced potassium and ordered oral magnesium oxide on 03/14. #Bradycardia: Heart rate going down to high 40s. Concern for sinus ectopic atrial bradycardia Hold off on home dose of Coreg. Continue to monitor. If remains bradycardic for next 24 hours which would be 48-60 hours since last Coreg we will consult cardiology. For now continue to monitor. Telemetry. # Elevated troponin: Baseline troponin of 38 with delta of 15 and 6 hours. Add on troponin to morning labs. Denies any chest pain. High concerns for type II NM. Echocardiogram shows no regional wall motion abnormality with grade 1 diastolic dysfunction, EF of 260% with mild MR and AI. Stop heparin drip. Aspirin 81 mg daily, atorvastatin 20 mg daily. Appreciate A1c, LDL of 76 on 03/13. # Hypertension: Goal blood pressure less than 140/90 mmHg. Takes lisinopril and hydrochlorothiazide at home. Along with Coreg. Blood pressures elevated currently. Add amlodipine 5 mg oral daily. Holding off on Coreg given significant bradycardia. No lisinopril given severe renal failure on admission. Plan More awake and alert today. Start on mechanical soft diet. Heparin 5000 every 12 hourly for DVT prophylaxis Famotidine for PUD prophylaxis PDMP PDMP Reviewed: Not Reviewed Attestations 2 Medical Necessity Statement*: The patient needs to remain hospitalized for her delirium, diarrhea, and AMS. Other Coding Information Focused coding review requested Diagnoses Acute renal failure N17.9 Acute renal failure type: unspecified Bradycardia R00.1 Elevated troponin R79.89 Hypertension I10 Altered mental status R41.82 Dementia F03.90
[2025-03-14 20:00] VITALS: BP 165/101; PULSE 86; RESP 17; TEMP 36.4; O2SAT 98
[2025-03-14 20:16] LABS: C.Diff PCR (Lab) NEGATIVE (Negative)
[2025-03-14] MEDS: atorvastatin 40 mg Tablet 20 MG PO (20:58)
[2025-03-14] MEDS: trazodone 50 mg Tablet PO (20:59)
[2025-03-14 22:00] VITALS: PULSE 65
[2025-03-14] MEDS: haloperidol inj 5 mg/mL INJ 1 mL 1 MG IM (22:07)
[2025-03-14] MEDS: temazepam 15 mg Capsule PO (22:29)
[2025-03-14] MEDS: quetiapine 25 mg Tablet 50 MG PO (22:29)
[2025-03-14] MEDS: metoprolol tartrate 50 mg Tablet PO (23:16)
[2025-03-15] VITALS: BP 93/62; PULSE 78; RESP 19; TEMP 36.9; O2SAT 93
--- NOTE | 2025-03-15 02:00 | PC.NURSE ---
2300 Patient was agitated and sustaining a resting heart rate between 140-150 sinus tachycardia. Contacted physician and was ordered 50mg of metoprolol one time 0200- Patient resting peacefully in bed, heart rate sustaining between 55-80, blood pressure 93/62 with a map of 72, care ongoing.
[2025-03-15] MEDS: LORazepam 2 mg/mL INJ 1 mL 1 MG IVP (05:28)
[2025-03-15] MEDS: haloperidol inj 5 mg/mL INJ 1 mL IVP (05:28)
--- NOTE | 2025-03-15 05:32 | PC.NURSE ---
Contacted physician due to increased agitation and high heart rate due to the agitation. Physician ordered 1mg ivp ativan and 5mg ivp Haldol along with continuous fluids, fluids not yet administered due to patient refusing. Care ongoing, patient back in bed.
[2025-03-15 07:47] VITALS: BP 156/80; TEMP 36.1
--- NOTE | 2025-03-15 09:35 | PC.CHAP ---
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 finish cleaner visit [] Patient/Family/Request visit [] Outpatient visit [] Follow-up visit [] Physician referral [] Code/Alert [] Routine visit [] Staff referral [] Actively dying [] Patient sleeping [] Family support [] [] Out of room [] Palliative care [] [x] Receiving care in room [] Pre-surgical visit [] Trauma [] Long length of stay [] ICU visit [] Other: Relational/Emotional Strength [] Patient feels connected with others/family/visitors/staff [x] Distress [] Loneliness/isolation [] Abandonment Spirituality of Patient [] Person of Zoila [] Attends Presybeterian of their Zoila [] Believes in Prayer [] Reads Bible or Uatsdin materials [] There are Spiritual issues to be addressed Rn Internal Medicine Interventions [x] Prayer [] Active listening [x] Non-anxious presence [] Spiritual/emotional support [] Crisis/trauma care [] Spiritual counseling [] Bereavement support [] Provided bereavement packet [] Provided Bible/devotional materials [] Provided toy/stuffed animal, coloring book to patient or family member [] Provided Communion [] Anointing/[place] [] Salvation [] Completed spiritual assessment [] Other: Impact on Illness or Injury [] Angry [] Fearful [] Anxious [] Often cries [] Exhaustion [] Unable to work [] Unable to attend yazidism [] Unable to walk/stand [] Unable to read [] Unable to drive [] Unable to eat/drink [] Unable to sleep [] Unable to be with family [] Patient intubated [] Other: Summary Time spent with patient 5 mi8n
[2025-03-15] MEDS: famotidine 20 mg Tablet PO ×2 (10:09→17:56)
[2025-03-15] MEDS: aspirin 81 mg EC Tablet PO (10:09)
[2025-03-15] MEDS: amlodipine 10 mg Tablet PO (10:09)
[2025-03-15 10:15] LABS: Basophils % 1.1 %; Eosinophils # 0.2 10^3/uL (0.0-0.8); Hematocrit 35.8 % (36-47); Lymphocytes # 1.2 10^3/uL (0.8-4.8); Lymphocytes % 33.8 %; Mean Corpuscular HGB Conc 31.3 g/dL (30-55); Mean Corpuscular Hemoglobin 31.4 pg (27-33); Mean Corpuscular Volume 100.3 fl (85-98); Mean Platelet Volume 10.7 fL (7.4-10.4); Monocytes # 0.4 10^3/uL (0.2-0.9); Monocytes % 10.9 %; Neutrophils # 1.77 10^3/uL (1.8-7.7); Neutrophils % 48.2 %; Nucleated Red Blood Cells % 0 %; Platelet Count 208 10^3/cmm (157-399); Red Blood Count 3.57 10^6/uL (3.85-5.65); White Blood Count 3.67 10^3/uL (3.29-11.43)
[2025-03-15 10:38] LABS: Magnesium 1.6 mg/dL (1.7-2.3)
[2025-03-15 10:58] LABS: Alanine Aminotransferase 6 U/L (0-33); Alkaline Phosphatase 85 U/L (35-105); Blood Urea Nitrogen 8 mg/dL (8-23); Calcium 9.2 mg/dL (8.5-10.5); Carbon Dioxide 22 mmol/L (22-29); Chloride 110 mmol/L (98-107); Creatinine Clr Calc Pharmacy 54.9367; Globulin 3.2 g/dL (1.3-4.6); Glucose 76 mg/dL (65-115); Osmolality Calculated 293 mOsm/kg (285-295); Phosphorus 2.5 mg/dL (2.5-4.5); Sodium 143 mmol/L (136-145); Total Bilirubin 0.4 mg/dL (0.15-1.2); Total Protein 6.2 g/dL (6.6-8.7)
[2025-03-15 11:03] LABS: Anion Gap 15.5 (5-19); Aspartate Amino Transferase 24 U/L (0-32); Potassium 4.5 mmol/L (3.5-5.1)
[2025-03-15 16:00] VITALS: BP 154/89
--- NOTE | 2025-03-15 17:36 | P.PN_ITS ---
Subjective 2 Subjective: Overnight, the patient was given trazodone 50 mg at bedtime Restoril 15 mg at bedtime as well as Seroquel 50 mg at bedtime. She initially slept with the medication, but woke up at 4 AM agitated. She left her room and brandished her walking cane at the nurses station. She was given 1 mg of Ativan which helped to calm her down and return to bed. no longer having diarrhea. GI pathogen panel pcr is negative for C. diff. The rest of the pathogen panel is pending. Patient complaining of right knee pain despite Tylenol. Tramadol ordered, and a lidocaine patch was ordered. Vitals/I&O/Wt Last Vital Signs Temp 96.9 F L 03/15/25 07:47 Pulse 78 03/15/25 00:00 Resp 19 H 03/15/25 00:00 BP 154/89 03/15/25 16:00 Pulse Ox 93 03/15/25 00:00 O2 Del Method Room Air 03/15/25 00:00 03/15/25 03/15/25 03/15/25 06:59 14:59 22:59 Output Total 450 / 450 Balance -450 / 210 Physical Exam 2 Narrative: Constitutional: GENERAL APPEARANCE: cooperative, comfortable and appears older than stated age; not combative, not disheveled, not ill appearing and not frail appearing HENT: HEAD & SCALP: normocephalic and atraumatic; no Gustafson's sign, no laceration, no occipital foramen tenderness, no palpable skull fracture, no raccoon eyes, no scalp tenderness and no Temporal artery tenderness present NOSE: external nose not normal EXTERNAL EAR: no external ears normal MOUTH: Normal oral and palatal mucosa present THROAT: posterior oropharynx normal Eye: PERRL, EOMI, normal conjunctiva b/l Neck: normal visual inspection, trachea midline, No anterior neck swelling, No tracheal deviation, No tracheostomy present, no submandibular swelling, Thyroid normal, cervical ROM normal Lymph: no cervical, supraclavicular LAD Resp: no use of accessory muscles, CTAB, no w/r/r Cardio: RRR, no m/r/g, or clicks. 2+ radial and DP pulses. GI: normoactive bowel sounds, non-tender, non-distended, no guarding, no rigidity, no rebound tenderness, no hepatosplenomegaly. : Deferred Back/Pelvis: Deferred Extremity: No clubbing, No cyanosis and No edema Neuro: AO to person, place and time. CN normal except as noted. Normal gait present. 5/5 motor strength present throughout. Normal motor muscle tone present throughout. No tremor noted. No motor abnormalities present. No motor fasciculations present Psych: APPEARANCE: Yes grossly normal ATTITUDE: Yes calm and Yes engaged ACTIVITY/MOTOR BEHAVIOR: Yes appropriate eye contact SPEECH: Yes normal speech MOOD & AFFECT: Yes euthymic mood THOUGHT PROCESS: Normal thought process present THOUGHT CONTENT: Yes Normal thought content present ATTENTION/CONCENTRATION: Yes attention grossly intact MEMORY/COGNITION: Yes memory grossly intact Urinary Catheter Management: Eddy: Cath Placed During This Visit: yes, but has since been removed by the nurse Reason for Continuing Indwelling Catheter: Decision to DC Catheter Urinary Catheter Date of Insertion: 03/11/25 Urinary Catheter Time of Insertion: 23:29 Date Urinary Catheter Removed: 03/13/25 Time Urinary Catheter Discontinued: 23:56 Data 03/15/25 09:55 03/15/25 09:55 A&P Assessment and plan (1) Acute renal failure: (2) Bradycardia: (3) Elevated troponin: (4) Hypertension: (5) Altered mental status: (6) Dementia: Plan #Altered mental status: I believe that she is in #Delirium in the setting of possible Dementia - Suspicious for metabolic encephalopathy or drug induced. - Urine drug screen negative. - Not hypoxemic to suggest viral respiratory illness. Looks like she is on intermittent prednisone for rheumatoid arthritis not covered by leflunomide. She is also on tramadol for pain. - CT head on admission & MRI brain w/ no acute findings. . # Hyperactive delirium - Continue sitter - Will start non-pharmacologic measures. OOB to chair daily. Keep awake during the day. Attempt sleep aids to help sleep at night. Increased Trazodone to 100mg at bed time. - Continue to monitor. Haldol 1 mg every 4 hours as needed for agitation. #Possible Dementia - Out patient evaluation. I called the Neurologist on-call, Dr. Burgess on 03/15/2025, who iwll see the patient in [facility] #Diarrhea - resolved. - Ordered GI pathogen panel on 03/14. # Acute renal failure: Baseline creatinine normal. Recently started on diuretics along with hydrochlorothiazide. Also takes leflunomide and lisinopril at home. Creatinine normal today. Medical reconciliation done for nephrotoxic drugs. Able to intake orally. IVF d/c'ed Monitor for electrolytes and acidosis. - Replaced potassium and ordered oral magnesium oxide on 03/14. #Bradycardia: Heart rate going down to high 40s. Concern for sinus ectopic atrial bradycardia Hold off on home dose of Coreg. Continue to monitor. If remains bradycardic for next 24 hours which would be 48-60 hours since last Coreg we will consult cardiology. For now continue to monitor. Telemetry. # Elevated troponin: Baseline troponin of 38 with delta of 15 and 6 hours. Add on troponin to morning labs. Denies any chest pain. High concerns for type II [place]. Echocardiogram shows no regional wall motion abnormality with grade 1 diastolic dysfunction, EF of 260% with mild MR and AI. Stop heparin drip. Aspirin 81 mg daily, atorvastatin 20 mg daily. Appreciate A1c, LDL of 76 on 03/13. # Hypertension: Goal blood pressure less than 140/90 mmHg. Takes lisinopril and hydrochlorothiazide at home. Along with Coreg. Blood pressures elevated currently. Amlodipine added and then increased to 10 mg oral daily. Initially held Coreg on admission given significant bradycardia, but given the patient's tachycardia when upset, will restart Coreg and monitor closely. No lisinopril given severe renal failure on admission. Plan More awake and alert today. Start on mechanical soft diet. Heparin 5000 every 12 hourly for DVT prophylaxis Famotidine for PUD prophylaxis PDMP PDMP Reviewed: Not Reviewed Attestations 2 Medical Necessity Statement*: The patient remains hospitalized for > 2 midnights her agitation and delirium. Coding Level of Care Code 01877 High Time for a total of 76 minutes, includes reviewing past or interval history, examining/interviewing patient, placing orders, counseling patient/family/other support, updating patient/family/other support, discussing plan of care with staff, communicating with other healthcare providers and documenting encounter Diagnoses Acute renal failure N17.9 Acute renal failure type: unspecified Bradycardia R00.1 Elevated troponin R79.89 Hypertension I10 Altered mental status R41.82 Dementia F03.90
[2025-03-15] MEDS: carvedilol 6.25 mg Tablet PO (17:55)
[2025-03-15] MEDS: magnesium sulfate premix 4 GM/100 ML PREMIX IV (17:55)
[2025-03-15] MEDS: heparin 5,000 unit/mL INJ 1 mL 5000 UNIT SUBCUT (17:56)
[2025-03-15] MEDS: TRAMadol 50 mg Tablet PO (18:05)
--- NOTE | 2025-03-15 18:09 | PC.NURSE ---
pt is more awake now and pleasant patient able to eat her dinner by herself and take her medicines. pt complain of knee pain on right. she pivot from bed to bedside commode with staff as standby. still oriented to self.
[2025-03-15 20:00] VITALS: BP 90/51; PULSE 64; RESP 22; TEMP 37; O2SAT 99
[2025-03-15] MEDS: temazepam 15 mg Capsule PO (22:41)
[2025-03-15] MEDS: quetiapine 25 mg Tablet 50 MG PO (22:41)
[2025-03-15] MEDS: trazodone 50 mg Tablet PO (22:41)
[2025-03-15] MEDS: atorvastatin 40 mg Tablet 20 MG PO (22:42)
[2025-03-16] VITALS: BP 130/87; PULSE 64; RESP 22; TEMP 36.4; O2SAT 98
[2025-03-16 04:00] VITALS: BP 107/63; PULSE 73; RESP 18; TEMP 36.6; O2SAT 97
[2025-03-16] MEDS: heparin 5,000 unit/mL INJ 1 mL 5000 UNIT SUBCUT (05:28)
[2025-03-16 06:32] LABS: Basophils % 1.1 %; Eosinophils # 0.2 10^3/uL (0.0-0.8); Eosinophils % 6.3 %; Lymphocytes # 1.5 10^3/uL (0.8-4.8); Lymphocytes % 42.1 %; Mean Corpuscular HGB Conc 30.9 g/dL (30-55); Mean Corpuscular Hemoglobin 30.3 pg (27-33); Mean Corpuscular Volume 97.9 fl (85-98); Mean Platelet Volume 10.6 fL (7.4-10.4); Monocytes # 0.4 10^3/uL (0.2-0.9); Monocytes % 10.3 %; Neutrophils # 1.39 10^3/uL (1.8-7.7); Neutrophils % 39.9 %; Nucleated Red Blood Cells % 0 %; Platelet Count 191 10^3/cmm (157-399); Red Blood Count 3.37 10^6/uL (3.85-5.65); White Blood Count 3.49 10^3/uL (3.29-11.43)
[2025-03-16 06:42] LABS: Alanine Aminotransferase 6 U/L (0-33); Albumin Level 2.9 g/dL (3.5-5.2); Alkaline Phosphatase 76 U/L (35-105); Aspartate Amino Transferase 18 U/L (0-32); Blood Urea Nitrogen 7 mg/dL (8-23); Carbon Dioxide 23 mmol/L (22-29); Chloride 111 mmol/L (98-107); Creatinine Clr Calc Pharmacy 55.0076; Globulin 2.6 g/dL (1.3-4.6); Glucose 77 mg/dL (65-115); Magnesium 1.6 mg/dL (1.7-2.3); Osmolality Calculated 293 mOsm/kg (285-295); Phosphorus 2.6 mg/dL (2.5-4.5); Sodium 143 mmol/L (136-145); Total Bilirubin 0.2 mg/dL (0.15-1.2); Total Protein 5.5 g/dL (6.6-8.7)
[2025-03-16 09:04] VITALS: BP 107/63; PULSE 60; O2SAT 92
--- NOTE | 2025-03-16 10:01 | P.PN_ITS ---
Subjective 2 Subjective: Overnight, the patient was given trazodone 50 mg at bedtime Restoril 15 mg at bedtime as well as Seroquel 50 mg at bedtime. She is left throughout the night. According to the nurses, although asleep, she did attempt to bite the [employer] no longer having diarrhea. GI pathogen panel pcr is negative for C. diff. The rest of the pathogen panel is pending. She was seen sitting up in bed this afternoon. Her is at the bedside. She is asking when she can go home., Vitals/I&O/Wt Last Vital Signs Temp 97.8 F 03/16/25 04:00 Pulse 60 03/16/25 09:04 Resp 18 03/16/25 04:00 BP 107/63 03/16/25 09:04 Pulse Ox 92 03/16/25 09:04 O2 Del Method Room Air 03/16/25 04:00 03/15/25 03/16/25 03/16/25 22:59 06:59 14:59 Intake Total 399.167 / 399.167 240 / 639.167 Output Total 0 / 0 Balance 399.167 / 399.167 240 / 639.167 Weight last 48 hrs Weight 62.596 kg Physical Exam 2 Narrative: Constitutional: GENERAL APPEARANCE: cooperative, comfortable and appears older than stated age; not combative, not disheveled, not ill appearing and not frail appearing HENT: HEAD & SCALP: normocephalic and atraumatic; no Gustafson's sign, no laceration, no occipital foramen tenderness, no palpable skull fracture, no raccoon eyes, no scalp tenderness and no Temporal artery tenderness present NOSE: external nose not normal EXTERNAL EAR: no external ears normal MOUTH: Normal oral and palatal mucosa present THROAT: posterior oropharynx normal Eye: PERRL, EOMI, normal conjunctiva b/l Neck: normal visual inspection, trachea midline, No anterior neck swelling, No tracheal deviation, No tracheostomy present, no submandibular swelling, Thyroid normal, cervical ROM normal Lymph: no cervical, supraclavicular LAD Resp: no use of accessory muscles, CTAB, no w/r/r Cardio: RRR, no m/r/g, or clicks. 2+ radial and DP pulses. GI: normoactive bowel sounds, non-tender, non-distended, no guarding, no rigidity, no rebound tenderness, no hepatosplenomegaly. : Deferred Back/Pelvis: Deferred Extremity: No clubbing, No cyanosis and No edema Neuro: AO to person, place and time. CN normal except as noted. Normal gait present. 5/5 motor strength present throughout. Normal motor muscle tone present throughout. No tremor noted. No motor abnormalities present. No motor fasciculations present Psych: APPEARANCE: Yes grossly normal ATTITUDE: Yes calm and Yes engaged ACTIVITY/MOTOR BEHAVIOR: Yes appropriate eye contact SPEECH: Yes normal speech MOOD & AFFECT: Yes euthymic mood THOUGHT PROCESS: Normal thought process present THOUGHT CONTENT: Yes Normal thought content present ATTENTION/CONCENTRATION: Yes attention grossly intact MEMORY/COGNITION: Yes memory grossly intact Urinary Catheter Management: Eddy: Cath Placed During This Visit: yes, but has since been removed by the nurse Reason for Continuing Indwelling Catheter: Decision to DC Catheter Urinary Catheter Date of Insertion: 03/11/25 Urinary Catheter Time of Insertion: 23:29 Date Urinary Catheter Removed: 03/13/25 Time Urinary Catheter Discontinued: 23:56 Data 03/16/25 05:40 03/16/25 05:40 A&P Assessment and plan (1) Acute renal failure: (2) Bradycardia: (3) Elevated troponin: (4) Hypertension: (5) Altered mental status: (6) Dementia: Plan #Altered mental status: I believe that she is in #Delirium in the setting of possible Dementia - Improved - Suspicious for metabolic encephalopathy or drug induced. - Urine drug screen negative. - Not hypoxemic to suggest viral respiratory illness. Looks like she is on intermittent prednisone for rheumatoid arthritis not covered by leflunomide. She is also on tramadol for pain. - CT head on admission & MRI brain w/ no acute findings. - Will discharge the patient today. # Hyperactive delirium - resolved - Continue sitter - Will start non-pharmacologic measures. OOB to chair daily. Keep awake during the day. Attempt sleep aids to help sleep at night. Increased Trazodone to 100mg at bed time. Will add prn Temazepam. - Continue to monitor. Haldol 1 mg every 4 hours as needed for agitation. #Possible Dementia - Out patient evaluation. I called the Neurologist on-call, Dr. Burgess on 03/15/2025, who iwll see the patient in [facility] - Will refer her to see the neurologist on discharge. Will discharge the patient today. #Diarrhea - resolved. - Ordered GI pathogen panel on 03/14. # Acute renal failure: Baseline creatinine normal. Recently started on diuretics along with hydrochlorothiazide. Also takes leflunomide and lisinopril at home. Creatinine normal today. Medical reconciliation done for nephrotoxic drugs. Able to intake orally. IVF d/c'ed Monitor for electrolytes and acidosis. - Replaced potassium and ordered oral magnesium oxide on 03/14. #Hypomagnesemia - 4g MgSO4 IV ordered. #Bradycardia: Heart rate going down to high 40s. Concern for sinus ectopic atrial bradycardia Hold off on home dose of Coreg. Continue to monitor. If remains bradycardic for next 24 hours which would be 48-60 hours since last Coreg we will consult cardiology. For now continue to monitor. Telemetry. # Elevated troponin: Baseline troponin of 38 with delta of 15 and 6 hours. Add on troponin to morning labs. Denies any chest pain. High concerns for type II [place]. Echocardiogram shows no regional wall motion abnormality with grade 1 diastolic dysfunction, EF of 260% with mild MR and AI. Stop heparin drip. Aspirin 81 mg daily, atorvastatin 20 mg daily. Appreciate A1c, LDL of 76 on 03/13. # Hypertension: Goal blood pressure less than 140/90 mmHg. Takes lisinopril and hydrochlorothiazide at home. Along with Coreg. Blood pressures elevated currently. Amlodipine added and then increased to 10 mg oral daily. Initially held Coreg on admission given significant bradycardia, but given the patient's tachycardia when upset, will restart Coreg and monitor closely. No lisinopril given severe renal failure on admission. Plan More awake and alert today. Start on mechanical soft diet. Heparin 5000 every 12 hourly for DVT prophylaxis Famotidine for PUD prophylaxis PDMP PDMP Reviewed: Not Reviewed Attestations 2 Medical Necessity Statement*: The patient will be discharged home today. Diagnoses Acute renal failure N17.9 Acute renal failure type: unspecified Bradycardia R00.1 Elevated troponin R79.89 Hypertension I10 Altered mental status R41.82 Dementia F03.90
--- NOTE | 2025-03-16 10:22 | PC.NURSE ---
pt is still asleep Hospitalist notified.
[2025-03-16] MEDS: aspirin 81 mg EC Tablet PO (11:01)
[2025-03-16] MEDS: amlodipine 10 mg Tablet PO (11:01)
[2025-03-16] MEDS: famotidine 20 mg Tablet PO (11:02)
[2025-03-16] MEDS: carvedilol 6.25 mg Tablet PO (11:02)
--- NOTE | 2025-03-16 11:52 | PC.SOCIAL ---
IMM Updated Updated pt's on IMM. No questions voiced. Provided pt a copy. Initialed, dated, & timed a copy & placed in chart.
[2025-03-16] MEDS: lidocaine 5% Patch 1 PATCH TOPICAL (12:32)
[2025-03-16 13:20] VITALS: BP 105/53; PULSE 60; O2SAT 95
[2025-03-16] MEDS: magnesium sulfate premix 4 GM/100 ML PREMIX IV (14:23)
--- NOTE | 2025-03-16 16:04 | P.DS_ITS ---
Discharge Providers Date of Admission: 03/12/25 02:25 Date of Discharge: March 16, 2025 Attending Provider at Admission: Vern Montgomery MD Attending Provider at Discharge: Huma Whalen MD Primary Care Provider: Joshua Hernandez MD Diagnoses at Discharge Discharge Diagnosis (1) Acute renal failure: Status: Resolved Qualifiers: Acute renal failure type: unspecified Qualified Code(s): N17.9 - Acute kidney failure, unspecified (2) Bradycardia: Status: Resolved (3) Elevated troponin: Status: Inactive (4) Hypertension: Status: Inactive (5) Altered mental status: Status: Resolved (6) Dementia: Status: Inactive Reason for Visit Reason for Visit: Confused Hospital Course Hospital Course According to the HPI, Elisabet Cook is a 74 year old female noted to have altered mental status by her . Patient had word finding difficulty and confusion. He was afraid she might of had a stroke but no prior history of strokes or heart attacks. She is on chronic diuretics and last echo was 02/17/2025 showed normal LV function and size with EF 60% and grade 2/4 diastolic dysfunction IVC and right atrial pressure were normal. Patient at this time declines to be interviewed and says she is trying to go to sleep. She was found to have acute kidney injury in the emergency department In addition to an TERRI (Cr 2.6, baseline Cr of 0.6 as 12/07/2024), the patient was noted to have junctional bradycardia in the ED. She was chronically on HCTZ and Furosemide at home. She was On admission, she was hypotensive, but her BP improved w/ IVF boluses. Her AMS was thought to be due to Metabolic Encephalopathy. She Her CT head was negative for any acute intracrainal processes, and MRI brain although also negative for any acute findings were also limited by motion artifact. Her UA was negative for a UTI and her CXR was also negative for any acute processes. She was admitted and started on continuous IVF, and her diuretics and Lisinopril were discontinued on admission. Her Carvedilol was discontinued for her jxnal bradycardia. Her Trop T were minimally elevated. Her renal function improved, but the patient's mental status remained a challenge while she was hospitalized. According to nursing staff, the patient was aggressive, getting out of bed, and sometimes hitting or attempting to bite staff, such that she required a sitter. Per nursing staff, she had not slept for two nights. The patient's told the discharging hospitalist, that the patient had poor short term memory. He recounted a story, where he would ask the patient to make him a sandwich. The patient would enter the kitchen and return multiple times to ask him the type of sandwich that he wanted. Given the 's history, there was concern for Insomnia triggering hyperactive delirium in the setting of undiagnosed Dementia. The Neurologist on-call was consulted, who recommended referral of the patient to his clinic for further evaluation. The patient's bradycardia resolved. She was restarted on her home Lisinopril, low dose carvedilol, and Amlodipine was added for better BP control. Insomnia was addressed with Temazepam, Trazodone. The patient's wanted to take the patient home, so the patient was discharged home to follow up with her PCP and the Neurologist. Of note, while hospitalized, there was concern for diarrhea. GI pathogen panel was negative. #Metabolic Encephalopathy: Resolved #Hyperactive Delirium: Resolved #Insomnia: Discharged on Trazodone #Likely undiagnosed Dementia #Acute Kidney Injury: Resolved #Hypertension: D/c'ed on Carvedilol, Lisinopril and Amlodipine. #Hypomagnesemia: Resolved. Physical Exam Narrative: Constitutional: GENERAL APPEARANCE: cooperative, comfortable and appears older than stated age; not combative, not disheveled, not ill appearing and not frail appearing HENT: HEAD & SCALP: normocephalic and atraumatic; no Gustafson's sign, no laceration, no occipital foramen tenderness, no palpable skull fracture, no raccoon eyes, no scalp tenderness and no Temporal artery tenderness present NOSE: external nose not normal EXTERNAL EAR: no external ears normal MOUTH: Normal oral and palatal mucosa present THROAT: posterior oropharynx normal Eye: PERRL, EOMI, normal conjunctiva b/l Neck: normal visual inspection, trachea midline, No anterior neck swelling, No tracheal deviation, No tracheostomy present, no submandibular swelling, Thyroid normal, cervical ROM normal Lymph: no cervical, supraclavicular LAD Resp: no use of accessory muscles, CTAB, no w/r/r Cardio: RRR, no m/r/g, or clicks. 2+ radial and DP pulses. GI: normoactive bowel sounds, non-tender, non-distended, no guarding, no rigidity, no rebound tenderness, no hepatosplenomegaly. : Deferred Back/Pelvis: Deferred Extremity: No clubbing, No cyanosis and No edema Neuro: AO to person, place and time. CN normal except as noted. Normal gait present. 5/5 motor strength present throughout. Normal motor muscle tone present throughout. No tremor noted. No motor abnormalities present. No motor fasciculations present Psych: APPEARANCE: Yes grossly normal ATTITUDE: Yes calm and Yes engaged ACTIVITY/MOTOR BEHAVIOR: Yes appropriate eye contact SPEECH: Yes normal speech MOOD & AFFECT: Yes euthymic mood THOUGHT PROCESS: Normal thought process present THOUGHT CONTENT: Yes Normal thought content present ATTENTION/CONCENTRATION: Yes attention grossly intact MEMORY/COGNITION: Yes memory grossly intact Urinary Catheter Management: Eddy: Cath Placed During This Visit: yes, but has since been removed by the nurse Reason for Continuing Indwelling Catheter: Decision to DC Catheter Urinary Catheter Date of Insertion: 03/11/25 Urinary Catheter Time of Insertion: 23:29 Date Urinary Catheter Removed: 03/13/25 Time Urinary Catheter Discontinued: 23:56 Discharge Data Studies Completed and Pending Completed Studies During Hospitalization Category Date Time Status CT head wo con* [id number] Stat Cat Scan 03/11/25 21:31 Completed XR chest 1V portable [id number] Stat Exams 03/11/25 21:31 Completed MR head wo con* [id number] Routine MRI 03/12/25 12:17 Completed CV. echo complete* [id number] Routine Ultrasound 03/12/25 10:11 Completed Pending at discharge Category Date Time Status Blood Culture Stat Lab 03/11/25 23:30 Results CBC Auto Diff [Complete Blood Count w/Auto] AM LABS Lab 03/17/25 04:00 Ordered CMP [Comprehensive Metabolic Panel] AM LABS Lab 03/17/25 04:00 Ordered Gastrointestinal Pathogen [place] Routine Lab 03/14/25 17:30 Received Magnesium AM LABS Lab 03/17/25 04:00 Ordered PHOS [Phosphorus] AM LABS Lab 03/17/25 04:00 Ordered Radiology Impressions Chest X-Ray 03/11/25 21:31 IMPRESSION: No acute cardiopulmonary abnormality. Head CT 03/11/25 21:31 IMPRESSION: No acute intracranial abnormality. Head MRI 03/12/25 12:17 IMPRESSION: Limited examination due to motion artifact. However no acute intracranial process. Senescent changes. Laboratory Results WBC 3.49 10^3/uL (3.29-11.43) 03/16/25 05:40 RBC 3.37 10^6/uL (3.85-5.65) L 03/16/25 05:40 Hgb 10.20 g/dL (11.27-16.99) L 03/16/25 05:40 Hct 33.0 % (36-47) L 03/16/25 05:40 MCV 97.9 fl (85-98) 03/16/25 05:40 MCH 30.3 pg (27-33) 03/16/25 05:40 MCHC 30.9 g/dL (30-55) 03/16/25 05:40 RDW 13.0 % (12.1-15.1) 03/16/25 05:40 Plt Count 191 10^3/cmm (157-399) 03/16/25 05:40 MPV 10.6 fL (7.4-10.4) H 03/16/25 05:40 Neut % (Auto) 39.9 % 03/16/25 05:40 Lymph % (Auto) 42.1 % 03/16/25 05:40 [place] % (Auto) 10.3 % 03/16/25 05:40 Eos % (Auto) 6.3 % 03/16/25 05:40 Baso % (Auto) 1.1 % 03/16/25 05:40 Neut # (Auto) 1.39 10^3/uL (1.8-7.7) L 03/16/25 05:40 Lymph # (Auto) 1.5 10^3/uL (0.8-4.8) 03/16/25 05:40 [place] # (Auto) 0.4 10^3/uL (0.2-0.9) 03/16/25 05:40 Eos # (Auto) 0.2 10^3/uL (0.0-0.8) 03/16/25 05:40 Baso # (Auto) 0.0 10^3/uL (0.0-0.1) 03/16/25 05:40 Nucleated RBC % (auto) 0 % 03/16/25 05:40 Nucleated RBCs # 0.0 /100WBC 03/16/25 05:40 APTT 147.1 SECONDS (23.9-36.7) H D 03/13/25 06:22 D-Dimer 1.22 ug/mLFEU (0-0.59) H 03/12/25 09:03 Sodium 143 mmol/L (136-145) 03/16/25 05:40 Potassium 4.0 mmol/L (3.5-5.1) 03/16/25 05:40 Chloride 111 mmol/L (98-107) H 03/16/25 05:40 Carbon Dioxide 23 mmol/L (22-29) 03/16/25 05:40 Anion Gap 13.0 (5-19) 03/16/25 05:40 BUN 7 mg/dL (8-23) L 03/16/25 05:40 Creatinine 0.6 mg/dL (0.5-0.9) 03/16/25 05:40 GFR Calculation Not Reportable 03/16/25 05:40 Glucose 77 mg/dL (65-115) 03/16/25 05:40 Estimat Average Glucose 117 03/12/25 09:03 Hemoglobin A1c 5.7 % (4.0-6.0) 03/12/25 09:03 Calculated Osmolality 293 mOsm/kg (285-295) 03/16/25 05:40 Lactic Acid 1.1 mmol/L (0.5-2.2) 03/12/25 00:46 Calcium 9.0 mg/dL (8.5-10.5) 03/16/25 05:40 Phosphorus 2.6 mg/dL (2.5-4.5) 03/16/25 05:40 Magnesium 1.6 mg/dL (1.7-2.3) L 03/16/25 05:40 Iron 55 ug/dL (37-145) 03/12/25 09:03 TIBC 154 mcg/dl 03/12/25 09:03 % Saturation 35.7 % (20-50) 03/12/25 09:03 Unsat Iron Binding 99 ug/dL (112-347) L 03/12/25 09:03 Total Bilirubin 0.2 mg/dL (0.15-1.2) 03/16/25 05:40 AST 18 U/L (0-32) 03/16/25 05:40 ALT 6 U/L (0-33) 03/16/25 05:40 Alkaline Phosphatase 76 U/L (35-105) 03/16/25 05:40 Ammonia 13 umol/L (11-51) 03/13/25 06:22 Troponin T 5th Gen ng/L 40 ng/L (0-10) H 03/13/25 06:22 Troponin T Baseline 42 ng/L (0-10) H 03/11/25 21:54 Troponin T 120 Minute 38.35 ng/L (0-10) H 03/12/25 00:46 Delta Troponin T -3.65 ABS# (0-10) L 03/12/25 00:46 Troponin T Hi Sens 6Hr 57.15 ng/L (0-10) H 03/12/25 09:03 Troponin T Hi Sens 6Hr Delta 15 ng/L (0-12) H* 03/12/25 09:03 C-Reactive Protein 29.0 mg/L (0.0-4.9) H 03/11/25 21:54 NT-Pro-B Natriuret Pep 335 pg/mL (0-125) H 03/12/25 00:46 Total Protein 5.5 g/dL (6.6-8.7) L 03/16/25 05:40 Albumin 2.9 g/dL (3.5-5.2) L 03/16/25 05:40 Globulin 2.6 g/dL (1.3-4.6) 03/16/25 05:40 Triglycerides 125 mg/dL (0-150) 03/13/25 06:22 Cholesterol 135 mg/dL (0-200) 03/13/25 06:22 LDL Cholesterol, Calc 76 mg/dL (50-129) 03/13/25 06:22 Total VLDL Cholesterol 25 mg/dL (0-30) 03/13/25 06:22 HDL Cholesterol 34 mg/dL (60-100) L 03/13/25 06:22 Cholesterol/HDL Ratio 3.97 mg/dL (0.0-4.40) 03/13/25 06:22 Vitamin B12 261 pg/mL (232-1245) 03/12/25 09:03 Folate 14.1 ng/mL (4.8-37.3) 03/13/25 06:22 Procalcitonin 0.16 ng/mL (0-0.5) 03/12/25 09:03 TSH 1.11 uIU/mL (0.27-4.20) 03/12/25 09:03 Urine Color Yellow (Yellow) 03/11/25 23:40 Urine Appearance Clear (CLEAR) 03/11/25 23:40 Urine pH 5.0 (5-7) 03/11/25 23:40 Ur Specific [place] 1.008 (1.005-1.030) 03/11/25 23:40 Urine Protein Negative (Negative) 03/11/25 23:40 Urine Glucose (UA) Negative (Normal) 03/11/25 23:40 Urine Ketones Negative (Negative) 03/11/25 23:40 Urine Blood Negative (Negative) 03/11/25 23:40 Urine Nitrate Negative (Negative) 03/11/25 23:40 Urine Bilirubin Negative (Negative) 03/11/25 23:40 Urine Urobilinogen 0.2 mg/dL (Negative) 03/11/25 23:40 Ur Leukocyte Esterase Negative (Negative) 03/11/25 23:40 Urine RBC 0-2 /hpf (0-2) 03/11/25 23:40 Urine WBC 0-5 /hpf (0-5) 03/11/25 23:40 Ur Squamous Epith Cells 0-5 /hpf (0-5) 03/11/25 23:40 Amorphous Sediment Not Reportable 03/11/25 23:40 Urine Bacteria None seen /hpf (NONE) 03/11/25 23:40 Hyaline Casts 9.51 /lpf 03/11/25 23:40 Urine Opiates Screen Negative ng/mL (Negative) 03/11/25 23:40 Ur Barbiturates Screen Negative ng/mL (Negative) 03/11/25 23:40 Ur Phencyclidine Scrn Negative ng/mL (Negative) 03/11/25 23:40 Ur Amphetamines Screen Negative ng/mL (Negative) 03/11/25 23:40 U Benzodiazepines Scrn Negative ng/mL (Negative) 03/11/25 23:40 Urine Cocaine Screen Negative ng/mL (Negative) 03/11/25 23:40 U Marijuana (THC) Screen Negative ng/mL (Negative) 03/11/25 23:40 C. difficile (PCR) Negative (Negative) 03/14/25 17:30 Vitals Last Vital Signs Temp 97.8 F 03/16/25 04:00 Pulse 60 03/16/25 09:04 Resp 18 03/16/25 04:00 BP 107/63 03/16/25 09:04 Pulse Ox 92 03/16/25 09:04 O2 Del Method Room Air 03/16/25 04:00 Discharge Plan Discharge Patient Disposition: Home Health Service Condition: Stable Prescriptions: New aspirin 81 mg Tablet,Delayed Release (Dr/Ec) 81 mg PO DAILY 30 Days Qty: 30 0RF amlodipine 10 mg Tablet 10 mg PO DAILY 30 Days Qty: 30 0RF trazodone 100 mg Tablet 100 mg PO BEDTIME 30 Days Qty: 30 0RF lidocaine 5 % Adhesive Patch,Medicated 1 patch topical [id number] 30 Days Qty: 30 0RF Continued folic acid 1 mg tablet 1 mg PO DAILY Qty: 90 3RF carvedilol 6.25 mg tablet 6.25 mg PO BID Qty: 180 3RF lisinopril 40 mg tablet 40 mg PO DAILY Qty: 90 3RF pravastatin 40 mg tablet 40 mg PO BEDTIME Qty: 90 3RF prednisone 20 mg tablet See Rx Instructions PO .COMPLEX PRN (Reason: joint pain flare) Qty: 30 1RF Rx Instructions: take 1 or 2 tab daily for up to 7 days as needed for arthritis flare PO PRN; tramadol 50 mg tablet 50 mg PO BID PRN (Reason: pain (scale score 7-10)) Qty: 14 0RF Rx Instructions: 1 week trial pain med tramadol 50 mg tablet 50 mg PO BID PRN (Reason: pain (scale score 7-10)) Qty: 60 0RF leflunomide 20 mg tablet 20 mg PO QAM Qty: 90 1RF pantoprazole 40 mg tablet,delayed release (DR/EC) 40 mg PO QAM Discontinued furosemide 40 mg tablet 40 mg PO DAILY Qty: 90 3RF hydrochlorothiazide 12.5 mg tablet 12.5 mg PO QAM Qty: 90 3RF potassium chloride [Klor-Con 10] 10 mEq tablet extended release 10 meq PO DAILY Qty: 90 3RF Discharge Orders: Discharge Order (Routine); Ordered 03/16/25 Ordered By: Huma Whalen Referrals: [facility] ([facility]) [Outside] Andres Burgess MD [Physician, Neurology] Referral Note: Evaluation for dementia We have notified your physician's clinic of the need for a follow-up appointment to be scheduled. If you have not heard from them within the next 2 business days, please call them directly. Joshua Hernandez MD [Primary Care Provider, [facility]] - 03/21/25 8:20 am Discharge Diet: Usual diet Discharge Activity: Resume usual activity Patient Instructions: Bradycardia, Aspirin (By mouth), Amlodipine (By mouth), Acute Kidney Injury (DC), Dementia (ED), Altered Mental Status (ED), Opioid Safety Discharge Attestations Time Spent in Discharge Care*: greater than 30 min Quality Metrics Clinical Quality Measures [ No reported AMI, CVA or VTE this stay] Coding Level of Care Code 06726 Total time (in minutes) for Discharge: 45 Diagnoses Acute renal failure N17.9 Acute renal failure type: unspecified Bradycardia R00.1 Elevated troponin R79.89 Hypertension I10 Altered mental status R41.82 Dementia F03.90
[2025-03-16 16:17] VITALS: BP 113/72; PULSE 54; O2SAT 96
[2025-03-16 16:25] LABS: Campylobacter Group NOT DETECTED (NOT DETECTED); Norovirus GI/GII NOT DETECTED (NOT DETECTED); Rotavirus A NOT DETECTED (NOT DETECTED); Shiga Toxin 1 NOT DETECTED (NOT DETECTED); Shigella Species NOT DETECTED (NOT DETECTED); Vibrio Group NOT DETECTED (NOT DETECTED); Yersinia Enterocolotica NOT DETECTED (NOT DETECTED)
[2025-03-16 16:47] VITALS: BP 113/72; PULSE 51; O2SAT 94
== END 2025-03-16 17:30 | disposition home health service (06) | DRG 682 ==
LOC: ER 03-12 03:16 → CSU 03-12 03:17
PROVIDERS: Student in an Organized Health Care Education/Training Program; Admitting Provider Internal Medicine; Emergency Provider Emergency Medicine; PCP Family Medicine; Visit Provider Internal Medicine
DX: N17.9 Acute kidney failure, unspecified (principal); G93.41 Metabolic encephalopathy; F03.911 Unspecified dementia, unspecified severity, with agitation; R00.1 Bradycardia, unspecified; R79.89 Other specified abnormal findings of blood chemistry; I10 Essential (primary) hypertension; I95.9 Hypotension, unspecified; G47.00 Insomnia, unspecified; E83.42 Hypomagnesemia; M06.9 Rheumatoid arthritis, unspecified; R19.7 Diarrhea, unspecified
CPT/HCPCS: 36415; 51702; 70450; 70551; 71045; 80048; 80053; 80061; 80306; 81001; 82140; 82607; 82746; 83036; 83540; 83550; 83605; 83735; 83880; 84100; 84145; 84443; 84484; 85025; 85378; 85730; 86140; 87040; 87493; 87506; 93005; 93306; 96365; 96366; 96372; 96375; 96376; 99285; J0696; J1630; J1644; J2060; J3475; J3480; J3490; J7030; J7040; J9999

== ENCOUNTER 2025-03-17 09:11 | Emergency (ER) | payer MEDICARE, OTHER, SELFPAY ==
[2025-03-17] VITALS (7 sets, daily range): BP systolic 121–147; BP diastolic 73–83; PULSE 68–93; RESP 15–19; TEMP 37.1; O2SAT 93–98
--- NOTE | 2025-03-17 09:14 | ECG_ITS ---
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[id number] Requested By: Gwyn Hollingsworth Order Number: [id number] Yuriy MD: ROYCE VAIL Measurements Intervals [place] Rate: 97 P: 0 OK: 0 QRS: -29 QRSD: 93 T: 4 QT: 374 QTc: 476 Interpretive Statements Sinus Rythm MODERATE VOLTAGE CRITERIA FOR LVH, CONSIDER NORMAL VARIANT [MEETS CRITERIA IN ONE OF: R(aVL), S(V1), R(V5), R(V5/V6)+S(V1)] POSSIBLE ANTERIOR MYOCARDIAL INFARCTION , PROBABLY OLD [30 ms Q WAVE IN V3/V4, OR R < 0.2 mV IN V4] ABNORMAL RHYTHM ECG Compared to ECG 03/12/2025 19:59:33 Bradycardia, nonsinus no longer present Myocardial infarct finding still present Electronically Signed On 03-19-2025 23:48:16 CDT by ROYCE VAIL [email or web address]
--- NOTE | 2025-03-17 09:20 | PC.NURSE ---
PT looked at home camera and states PT fell sometime around 0600 this AM
--- NOTE | 2025-03-17 09:23 | ED_ITS ---
HPI - Weakness 2 General: Chief complaint: Weakness Stated complaint: fall Time Seen by Provider: 03/17/25 09:14 History of Present Illness: 74-year-old female brought in by EMS aft er a fall at home she was recently discharged yesterday from our facility she had been admitted for acute renal failure altered mental status. She had some dementia also relates that she had a bladder infection. She has not had any fever since she got home she fell around 6:00 this morning he believes she she was not found by him until around 8 or 830. She is significant dementia and she does not provide history well. states he chronically states her legs hurt he has been told they think she has sciatica. She has no evidence of trauma to her head no specific complaints for the extremities. Review of Systems 2 General: Reports: ROS unobtainable due to mental status PFSH ED 2 PFSH: Medical History Elevated troponin Hypertension Varices of esophagus determined by endoscopy Dysphagia Dementia Muscle cramps Diverticulosis Hiatal hernia Gastritis and duodenitis Encounter for screening colonoscopy Sinusitis, acute Spondylolisthesis, lumbar region Spondylolisthesis of cervical region Displacement of lumbar disc with radiculopathy Stenosis of cervical spine with myelopathy Osteopenia Crossover toe deformity of right foot Immunization counseling High risk medication use Cervical disc disorder with myelopathy of mid-cervical region Lumbar stenosis with neurogenic claudication Intervertebral disc disorder with radiculopathy of lumbosacral region Immunosuppression 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 Seropositive rheumatoid arthritis of multiple joints Surgical History Hx of colonoscopy 2020 [facility] History of bilateral knee arthroplasty Family History Mother Cancer Denies family history of Diabetes Dementia Social History Smoking and tobacco/nicotine status: never used tobacco/nicotine Alcohol intake: former Former alcohol use details: Use to be on new year's david only Substance/Drug Use: never Household members: spouse Marital status: Current occupational status: retired Physical Exam 2 Const: COMMON NORMALS: no acute distress GENERAL APPEARANCE: cooperative and comfortable ORIENTATION/CONSCIOUSNESS: Yes awake HENMT: COMMON NORMALS: normocephalic, atraumatic and hearing grossly normal bilaterally HEAD & SCALP: normocephalic and atraumatic Resp: COMMON NORMALS: normal respiratory effort, No retractions, No use of accessory muscles and clear to auscultation bilaterally AUSCULTATION: clear to auscultation bilaterally Cardio: COMMON NORMALS: regular rate, regular rhythm and No murmurs present (Cardio) RATE: regular rate RHYTHM: regular rhythm GI: COMMON NORMALS: Soft to palpation and No hepatosplenomegaly present A USCULTATION: Yes normoactive bowel sounds PALPATION: Yes Soft to palpation, No Tenderness to palpation present (GI), No Guarding due to palpation present (GI) and Yes No hepatosplenomegaly present Extremity: COMMON NORMALS: normal to inspection, capillary refill normal, no clubbing, cyanosis or edema, no calf tenderness and no pedal edema Skin: COMMON NORMALS: no rashes or lesions noted GENERAL SKIN EXAM: no rashes or lesions noted Course 2 Vital Signs: Vital signs: Vital Signs Temperature 98.7 F 03/17/25 09:12 Pulse Rate 88 03/17/25 17:46 Respiratory Rate 18 03/17/25 17:46 Blood Pressure 147/82 03/17/25 17:46 Pulse Oximetry 97 03/17/25 17:46 Oxygen Delivery Me thod Room Air 03/17/25 10:19 MDM - Weakness Medical Decision Making Mechanical ground-level fall. She is at her baseline at this point. She is anemic which is chronic and unchanged. CPK slightly elevated. She is currently being treated for bladder infection. Will discharge patient home. They would like to look at to the [facility]. Case management assisting that unfortunately they will not be able to get there today. Imaging done today is otherwise unremarkable. Lab Data 03/17/25 09:56 03/17/25 09:48 Radiology Impressions Cervical Spine CT 03/17/25 09:29 IMPRESSION: No evidence of acute fracture or dislocation. Head CT 03/17/25 09:29 IMPRESSION: 1. No evidence of intracranial hemorrhage or mass effect. 2. No acute intracranial findings. Laboratory Results WBC 6.32 10^3/uL (3.29-11.43) 03/17/25 09:56 RBC 3.53 10^6/uL (3.85-5.65) L 03/17/25 09:56 Hgb 10.90 g/dL (11.27-16.99) L 03/17/25 09:56 Hct 35.0 % (36-47) L 03/17/25 09:56 MCV 99.2 fl (85-98) H 03/17/25 09:56 MCH 30.9 pg (27-33) 03/17/25 09:56 MCHC 31.1 g/dL (30-55) 03/17/25 09:56 RDW 12.9 % (12.1-15.1) 03/17/25 09:56 Plt Count 207 10^3/cmm (157-399) 03/17/25 09:56 MPV 10.3 fL (7.4-10.4) 03/17/25 09:56 Neut % (Auto) 81.1 % 03/17/25 09:56 Lymph % (Auto) 8.2 % 03/17/25 09:56 Haskell % (Auto) 9.3 % 03/17/25 09:56 Eos % (Auto) 0.5 % 03/17/25 09:56 Baso % (Auto) 0.6 % 03/17/25 09:56 Neut # (Auto) 5.12 10^3/uL (1.8-7.7) 03/17/25 09:56 Lymph # (Auto) 0.5 10^3/uL (0.8-4.8) L 03/17/25 09:56 Haskell # (Auto) 0.6 10^3/uL (0.2-0.9) 03/17/25 09:56 Eos # (Auto) 0.0 10^3/uL (0.0-0.8) 03/17/25 09:56 Baso # (Auto) 0.0 10^3/uL (0.0-0.1) 03/17/25 09:56 Nucleated RBC % (auto) 0 % 03/17/25 09:56 Nucleated RBCs # 0.0 /100WBC 03/17/25 09:56 Sodium 141 mmol/L (136-145) 03/17/25 09:48 Potassium 3.5 mmol/L (3.5-5.1) 03/17/25 09:48 Chloride 109 mmol/L (98-107) H 03/17/25 09:48 Carbon Dioxide 17 mmol/L (22-29) L 03/17/25 09:48 Anion Gap 18.5 (5-19) 03/17/25 09:48 BUN 10 mg/dL (8-23) 03/17/25 09:48 Creatinine 0.8 mg/dL (0.5-0.9) 03/17/25 09:48 GFR Calculation Not Reportable 03/17/25 09:48 Glucose 89 mg/dL (65-115) 03/17/25 09:48 Calculated Osmolality 291 mOsm/kg (285-295) 03/17/25 09:48 Calcium 9.0 mg/dL (8.5-10.5) 03/17/25 09:48 Total Bilirubin 0.3 mg/dL (0.15-1.2) 03/17/25 09:48 AST 24 U/L (0-32) 03/17/25 09:48 ALT 8 U/L (0-33) 03/17/25 09:48 Alkaline Phosphatase 87 U/L (35-105) 03/17/25 09:48 Creatine Kinase 499 U/L (26-192) H* 03/17/25 09:56 Total Protein 6.2 g/dL (6.6-8.7) L 03/17/25 09:48 Albumin 3.2 g/dL (3.5-5.2) L 03/17/25 09:48 Globulin 3.0 g/dL (1.3-4.6) 03/17/25 09:48 All radiology interpretation(s) finalized by discharge Discharge Plan Discharge Patient Disposition: Home Clinical Impression: Fall, Elevated CPK, Dementia Condition: Stable Prescriptions: No Action folic acid 1 mg tablet 1 mg PO DAILY Qty: 90 3RF carvedilol 6.25 mg tablet 6.25 mg PO BID Qty: 180 3RF lisinopril 40 mg tablet 40 mg PO DAILY Qty: 90 3RF pravastatin 40 mg tablet 40 mg PO BEDTIME Qty: 90 3RF prednisone 20 mg tablet See Rx Instructions PO .COMPLEX PRN (Reason: joint pain flare) Qty: 30 1RF Rx Instructions: take 1 or 2 tab daily for up to 7 days as needed for arthritis flare PO PRN; tramadol 50 mg tablet 50 mg PO BID PRN (Reason: pain (scale score 7-10)) Qty: 14 0RF Rx Instructions: 1 week trial pain med tramadol 50 mg tablet 50 mg PO BID PRN (Reason: pain (scale score 7-10)) Qty: 60 0RF leflunomide 20 mg tablet 20 mg PO QAM Qty: 90 1RF pantoprazole 40 mg tablet,delayed release (DR/EC) 40 mg PO QAM aspirin 81 mg Tablet,Delayed Release (Dr/Ec) 81 mg PO DAILY 30 Days Qty: 30 0RF amlodipine 10 mg Tablet 10 mg PO DAILY 30 Days Qty: 30 0RF trazodone 100 mg Tablet 100 mg PO BEDTIME 30 Days Qty: 30 0RF lidocaine 5 % Adhesive Patch,Medicated 1 patch topical [id number] 30 Days Qty: 30 0RF temazepam 15 mg capsule 15 mg PO BEDTIME PRN (Reason: insomnia) 14 Days Qty: 14 0RF Rx Instructions: Give if patient is still not sleeping after giving the Trazodone. Discharge Orders: Discharge ED (Routine); Ordered 03/17/25 Ordered By: Gwyn Evans Referrals: Joshua Hernandez MD [Primary Care Provider, Family Practice] Discharge Diet: Advance as tolerated Discharge Activity: Resume usual activity Patient Instructions: Opioid Safety, Pain Management Activity Restrictions/Additional Instructions: Thank you for choosing [facility] for your healthcare needs today. It is very important that you follow up as instructed or that you return to the Emergency Department should you have concerns or if your condition changes or worsens in any way. You were seen after a fall. There is no sign of injury. There was a slight elevation in his CPK from muscle injury (essentially like bruising to the muscle). He did have a kidney function and CPK rechecked next week. Case management will attempt to assist with ch[facility] placement. Print Language: Taiwanese Coding Level of Care Code ED [employer] Fwd Related Data Home Medications ?Medication ?Instructions ?Recorded ?Confirmed pantoprazole 40 mg tablet,delayed 40 mg PO QAM 5 03/12/25 release Previous Rx's ?Medication ?Instructions ?Recorded folic acid 1 mg tablet 1 mg PO DAILY #90 tabs 10/19 carvedilol 6.25 mg tablet 6.25 mg PO BID #180 tabs 11/06 lisinopril 40 mg tablet 40 mg PO DAILY blood pressur e #90 02/10/25 tabs pravastatin 40 mg tablet 40 mg PO BEDTIME #90 tabs leflunomide 20 mg tablet 20 mg PO QAM #90 tabs prednisone 20 mg tablet See Rx Instructions PO .COMP DARINEL 02/16/25 PRN joint pain flare #30 tabs tramadol 50 mg tablet 50 mg PO BID PRN pain (scale score 02/16/25 7-10) #14 tabs tramadol 50 mg tablet 50 mg PO BID PRN pain (scale score 02/16/25 7-10) #60 tabs amlodipine 10 mg tablet 10 mg PO DAILY 30 days #30 t abs 03/16/25 aspirin 81 mg tablet,delayed 81 mg PO DAILY 30 days #3 0 tabs 03/16/25 release lidocaine 5 % topical patch 1 patch topical [id number] 30 days 03/16/25 #30 ea temazepam 15 mg capsule 15 mg PO BEDTIME PRN insomni a 14 03/16/25 days #14 caps trazodone 100 mg tablet 100 mg PO BEDTIME 30 days #3 0 tabs 03/16/25 Allergies Allergy/AdvReac Type Severity Reaction Status Date / Time Penicillins Allergy Unknown rash Verified 02/16/25 11:06 Sulfa (Sulfonamide Allergy Unknown Unknown Verified 02/16/25 11:06 Antibiotics) bacitracin (From Neosporin Allergy rash,swelli Verified 02/16/25 11:06 ([id number])) ng,itching neomycin (From Neosporin Allergy rash,swelli Verified 02/16/25 11:06 ([id number])) ng,itching polymyxin B (From Neosporin Allergy rash,swelli Verified 02/16/25 11:06 ([id number])) ng,itching
--- NOTE | 2025-03-17 09:29 | CT_ITS ---
WS: [id number] CT HEAD TECHNIQUE: Noncontrast CT of the head obtained from the skullbase to the vertex. CLINICAL INFORMATION: Trauma COMPARISON: CT 03/11/2025 DLP: 1254.[address] scans at [facility] use at least one of these dose optimization techniques: automated exposure control; mA and/or kV adjustment per patient size (includes targeted exams where dose is matched to clinical indication); or iterative reconstruction. FINDINGS: No evidence of intracranial hemorrhage or mass effect. Ventricular system and basal cisterns are patent. Moderate small vessel changes with moderate parenchymal volume loss. No extra-axial fluid collections. No evidence of mass or mass effect. Vascular calcification Paranasal sinuses and mastoid air cells are well aerated. .Normal visualized soft tissues. CT/CT head wo con* [id number] IMPRESSION: 1. No evidence of intracranial hemorrhage or mass effect. 2. No acute intracranial findings.
--- NOTE | 2025-03-17 09:29 | CT_ITS ---
WS: [id number] CT CERVICAL TRAUMA TECHNIQUE: Noncontrast CT of the cervical spine with coronal and sagittal reformatted images. CLINICAL INFORMATION: Trauma COMPARISON: None. DLP: 1254.[address] scans at [facility] use at least one of these dose optimization techniques: automated exposure control; mA and/or kV adjustment per patient size (includes targeted exams where dose is matched to clinical indication); or iterative reconstruction. FINDINGS: Advanced spondylitic changes. Cervical curve. Slight anterolisthesis C4 on C5. Disc base narrowing worse at C4-C5 C5-C6 and C6-C7. Normal C1 ring. No evidence of acute fracture or dislocation. Normal prevertebral soft tissues. Mastoids air cells are well aerated. CT/CT cervical spin wo con* [id number] IMPRESSION: No evidence of acute fracture or dislocation.
[2025-03-17 10:02] LABS: Basophils % 0.6 %; Eosinophils % 0.5 %; Lymphocytes # 0.5 10^3/uL (0.8-4.8); Lymphocytes % 8.2 %; Mean Corpuscular HGB Conc 31.1 g/dL (30-55); Mean Corpuscular Hemoglobin 30.9 pg (27-33); Mean Corpuscular Volume 99.2 fl (85-98); Mean Platelet Volume 10.3 fL (7.4-10.4); Monocytes # 0.6 10^3/uL (0.2-0.9); Monocytes % 9.3 %; Neutrophils # 5.12 10^3/uL (1.8-7.7); Neutrophils % 81.1 %; Nucleated Red Blood Cells % 0 %; Platelet Count 207 10^3/cmm (157-399); Red Blood Count 3.53 10^6/uL (3.85-5.65); Red Cell Distribution Width 12.9 % (12.1-15.1); White Blood Count 6.32 10^3/uL (3.29-11.43)
[2025-03-17 10:21] LABS: Alanine Aminotransferase 8 U/L (0-33); Albumin Level 3.2 g/dL (3.5-5.2); Alkaline Phosphatase 87 U/L (35-105); Anion Gap 18.5 (5-19); Aspartate Amino Transferase 24 U/L (0-32); Blood Urea Nitrogen 10 mg/dL (8-23); Carbon Dioxide 17 mmol/L (22-29); Chloride 109 mmol/L (98-107); Creatinine Clr Calc Pharmacy 54.8307; Glucose 89 mg/dL (65-115); Osmolality Calculated 291 mOsm/kg (285-295); Potassium 3.5 mmol/L (3.5-5.1); Sodium 141 mmol/L (136-145); Total Bilirubin 0.3 mg/dL (0.15-1.2); Total Protein 6.2 g/dL (6.6-8.7)
[2025-03-17 10:33] LABS: Creatine Phosphokinase 499 U/L (26-192)
--- NOTE | 2025-03-17 12:53 | PC.NURSE ---
pt had incontinent episode, pt changed, complete bed change; by ED nurse and [employer]
--- NOTE | 2025-03-17 13:46 | PC.SOCIAL ---
SNF Placement Patient has presented to ER after being DC'd from hospital yesterday and is now requesting placement. [facility]. New Referral faxed to [facility] @ this time.
--- NOTE | 2025-03-17 13:53 | PC.SOCIAL ---
SNF Placement Com Access Code: [email or web address] completed and signed by Dr. Evans. JEET called Litzy barajas/ [facility] and made aware of referral and requested she call the ER if they are able to accept.
--- NOTE | 2025-03-17 15:48 | PC.NURSE ---
[facility] called and states to give few more minutes and will call with acceptance or denial
--- NOTE | 2025-03-17 15:54 | DCPLANNER ---
nickolas altman called to decline due to dementia and carlos encinas
--- NOTE | 2025-03-17 16:35 | PC.NURSE ---
pt resting comfortably in bed during nurse rounding. respirations even and unlabored.
--- NOTE | 2025-03-17 16:58 | PC.NURSE ---
[facility] accepted pt, pt's notified, confirms okay with placement. pt's states unable to get pt into car and transport to [place], requests ambulance ride to [place] d/t weakness/confusion.
--- NOTE | 2025-03-17 17:46 | PC.NURSE ---
report given to [facility], discharge paperwork sent with EMS. IV removed, catheter intact. contacted pt's .
== END 2025-03-17 17:52 | disposition home or self-care (01) ==
PROVIDERS: Emergency Provider Family Medicine; PCP Family Medicine
DX: R74.8 Abnormal levels of other serum enzymes (principal); F03.90 Unspecified dementia, unspecified severity, without behavioral disturbance, psychotic disturbance, mood disturbance, and anxiety; W19.XXXA Unspecified fall, initial encounter; Z79.82 Long term (current) use of aspirin; I10 Essential (primary) hypertension
CPT/HCPCS: 36415; 70450; 72125; 80053; 82550; 85025; 93005; 99284

== ENCOUNTER 2025-04-20 16:29 | Outpatient (CLI) | payer MEDICARE, OTHER, SELFPAY | END 2025-04-20 16:30 | disposition home or self-care (01) | LOC: LAB 16:32 | PROVIDERS: PCP Family Medicine; Visit Provider Family Medicine | DX: N39.0 Urinary tract infection, site not specified (principal) | CPT/HCPCS: 87086 ==

== ENCOUNTER → 2025-07-13 10:48 | Outpatient (BNVA) | payer MEDICARE, OTHER, SELFPAY | PROVIDERS: PCP Family Medicine; Visit Provider Internal Medicine Rheumatology | DX: M05.79 Rheumatoid arthritis with rheumatoid factor of multiple sites without organ or systems involvement (principal); Z79.899 Other long term (current) drug therapy; Z71.85 Encounter for immunization safety counseling; M47.816 Spondylosis without myelopathy or radiculopathy, lumbar region; Z96.653 Presence of artificial knee joint, bilateral; F03.90 Unspecified dementia, unspecified severity, without behavioral disturbance, psychotic disturbance, mood disturbance, and anxiety | CPT/HCPCS: 36415; 80076; 82565; 85025; 85651; 86140; 99214 ==

== ENCOUNTER 2025-08-02 16:35 | Outpatient (CLI) | payer MEDICARE, OTHER, SELFPAY ==
--- NOTE | 2025-08-02 16:39 | XR_ITS ---
WS: [id number] Right hip, AP and frog-leg views, 08/02/2025 Clinical Data: Right hip pain Comparison: Pelvis and left hip, 08/03/2023 Findings: No fractures or dislocations are seen. The right hip shows no erosion, sclerosis, cyst formation or fragmentation of the right femoral head. There is a small acetabular lip.. The soft tissues are not remarkable. The adjacent pelvis is normal. There is a levoscoliosis of the lower lumbar spine with osteoarthritis. There is a radiopaque item overlying the L3 vertebral body. 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 XR/XR hip RT 2-3V wo/w pel* [id number] Impression: Mild osteoarthritis of the right hip.
== END 2025-08-02 16:36 | disposition home or self-care (01) ==
LOC: RAD 16:37
PROVIDERS: PCP Family Medicine; Visit Provider Family Medicine
DX: M25.551 Pain in right hip (principal); M16.11 Unilateral primary osteoarthritis, right hip; D25.9 Leiomyoma of uterus, unspecified; M47.816 Spondylosis without myelopathy or radiculopathy, lumbar region; R93.5 Abnormal findings on diagnostic imaging of other abdominal regions, including retroperitoneum
CPT/HCPCS: 73502

== ENCOUNTER 2025-09-12 08:37 | Outpatient (CLI) | payer MEDICARE, OTHER, SELFPAY ==
--- NOTE | 2025-09-12 08:40 | XR_ITS ---
WS: [email or web address] Exam: XR sacroiliac jts m 3V [id number] Date/Time of Exam: 09/12/2025 8:42 AM Reason For Exam: Left SI joint pain No fracture. Marked DJD of both SI joints. The SI joints remain open. XR/XR sacroiliac jts m 3V [id number] IMPRESSION: 1. Marked bilateral SI joint DJD. No fracture or bone destruction.
--- NOTE | 2025-09-12 08:40 | XR_ITS ---
WS: [email or web address] Exam: XR lumbar spine 2-3V* [id number] Date/Time of Exam: 09/12/2025 8:42 AM Reason For Exam: Low back pain DLP: Comparison 08/03/2023. No acute fracture. There is angular levoscoliosis. Advanced disc degeneration from L2-S1. Marked facet arthropathy at all levels. Marked osteopenia. XR/XR lumbar spine 2-3V* [id number] IMPRESSION: 1. No fracture. 2. Angular levoscoliosis. Advanced DJD, marked osteopenia.
== END 2025-09-12 08:38 | disposition home or self-care (01) ==
LOC: RAD 08:38
PROVIDERS: PCP Family Medicine; Visit Provider Family Medicine
DX: M54.50 Low back pain, unspecified (principal); M46.1 Sacroiliitis, not elsewhere classified; M85.89 Other specified disorders of bone density and structure, multiple sites
CPT/HCPCS: 72100; 72202

== ENCOUNTER → 2025-09-19 11:19 | Outpatient (BNVA) | payer MEDICARE, OTHER, SELFPAY | PROVIDERS: Referring Provider Family Medicine; Visit Provider Nurse Practitioner Family | DX: M79.18 Myalgia, other site (principal); M43.16 Spondylolisthesis, lumbar region; M48.062 Spinal stenosis, lumbar region with neurogenic claudication; M51.17 Intervertebral disc disorders with radiculopathy, lumbosacral region; M25.551 Pain in right hip | CPT/HCPCS: 20553; 99204; 99214; J1010; J3490 ==

== ENCOUNTER → 2025-10-03 13:15 | Outpatient (BNVA) | payer MEDICARE, OTHER, SELFPAY | PROVIDERS: Visit Provider Nurse Practitioner Family | DX: M54.9 Dorsalgia, unspecified (principal); M25.551 Pain in right hip | CPT/HCPCS: 99214 ==

== ENCOUNTER 2025-10-04 15:25 | Outpatient (CLI) | payer MEDICARE, OTHER, SELFPAY ==
--- NOTE | 2025-10-04 15:30 | XR_ITS ---
WS: [id number] DEXA (DUAL ENERGY X-RAY ABSORPTIOMETRY) Bone mineral density was performed using a [employer] machine. HISTORY: Signs of osteoporosis on xray back COMPARISON: 02/10/2015 Lumbar spine BMD (L1-L4): 1.050 g/cm2 T score: -1.1 Z score: 0.9 Total hip BMD: Left: 0.459 g/cm2. T score: -4.4 Z score: -2.4 Right: 0.591 g/cm2. T score: -3.3 Z score: -1.4 10 year probability of a major osteoporotic fracture is 62.5%. Compared to the prior study from 02/10/2015. Lumbar spine bone mineral density has decreased by 11.7%. Bilateral hips bone mineral density has decreased by 37.5%. LEFT lateral scoliosis lumbar spine. XR/XR DEXA axial skeleton* [id number] IMPRESSION: OSTEOPOROSIS based upon the WHO classification for females. Significant decrease in bone mineral density within both the lumbar spine and h ips since the prior study.
== END 2025-10-04 15:26 | disposition home or self-care (01) ==
LOC: RAD 15:27
PROVIDERS: PCP Family Medicine; Visit Provider Family Medicine
DX: Z13.820 Encounter for screening for osteoporosis (principal); Z78.0 Asymptomatic menopausal state
CPT/HCPCS: 77080

== ENCOUNTER 2025-10-07 10:25 | Outpatient (RCR) | payer MEDICARE, OTHER, SELFPAY | END 2025-10-12 23:59 | disposition home or self-care (01) | LOC: SPT 10:25 | PROVIDERS: PCP Family Medicine; Visit Provider Nurse Practitioner Family | DX: M43.16 Spondylolisthesis, lumbar region (principal) | CPT/HCPCS: 97161 ==